=== PATIENT | female | born 1930 | race Caucasian/White ===

== ENCOUNTER 2020-05-22 18:10 | Inpatient (IN) | payer MEDICARE ==
[~2020-05-22] VITALS: Ht 157.5 cm; Wt 44.5 kg
--- NOTE | 2020-05-22 18:41 | NUR ---
The patient, SILVESTRE ALVARADO, 89 y/o, F admitted by ABEBA STROUD MD, was given written information regarding hospital policies, unit procedures and contact persons. Pt arrived via EMS with personal belongings. Pt is very lethargic upon assessment, answering questions with only a grumble. Pt appeared to not be in any pain and was cooperative with assessments being done.
[2020-05-22 20:00] VITALS: BP 130/75
[2020-05-22] MEDS ORDERED: TEMAZEPAM 15 MG CAPSULE PO PRN (20:15)
[2020-05-22] MEDS ORDERED: TEMAZEPAM 15 MG CAPSULE PO SCH (21:00)
[2020-05-22] MEDS ORDERED: traZODone 100 MG TABLET. PO SCH (21:00)
--- NOTE | 2020-05-22 22:00 | PDOC ---
Exam Note: Austin Note: Please also refer to the separate dictated note~for this date of service dictated separately.~Patient seen individually. Discussed the patient with Nursing staff reviewed the chart.~Reviewed interim history and current functioning. Reviewed vital signs,~Labs/ Radiology~and current medications noted below. Continue current treatment with the changes noted in the dictated addendum note Assessment: Vital Signs/I&O: Vital Signs Date Time Temp Pulse Resp B/P (MAP) Pulse Ox O2 Delivery O2 Flow Rate FiO2 05/22/20 20:00 97.9 105 16 130/75 (93) 95 Room Air Current Medications: I have reviewed the current psychotropics carefully including drug interactions. Risk benefit ratio favors no change other than as noted in my dictated progress note. FRANK NYE MD May 22, 2020 22:00
--- NOTE | 2020-05-22 22:03 | PDOC ---
Exam Note: Austin Note: Please also refer to the separate dictated note~for this date of service dictated separately.~Patient seen individually. Discussed the patient with Nursing staff reviewed the chart.~Reviewed interim history and current functioning. Reviewed vital signs,~Labs/ Radiology~and current medications noted below. Continue current treatment with the changes noted in the dictated addendum note Assessment: Vital Signs/I&O: Vital Signs Date Time Temp Pulse Resp B/P (MAP) Pulse Ox O2 Delivery O2 Flow Rate FiO2 05/22/20 20:00 97.9 105 16 130/75 (93) 95 Room Air Current Medications: I have reviewed the current psychotropics carefully including drug interactions. Risk benefit ratio favors no change other than as noted in my dictated progress note. 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
--- NOTE | 2020-05-22 23:59 | NUR ---
Patient continues to be drowsy. She is arousable to name. Confused, disorganized. HS medications held d/t drowsiness. Patient appears to be sleeping comfortably at present time. Will continue to monitor.
[2020-05-23] VITALS (7 sets, daily range): BP systolic 118–154; BP diastolic 53–95
[2020-05-23] MEDS: PANTOPRAZOLE 40 MG TABLET. PO SCH (08:01)
[2020-05-23] MEDS: METOPROLOL TART IMMED RELEASE 25 MG TABLET PO SCH (08:01)
[2020-05-23] MEDS: OLANZapine 7.5 MG TABLET PO SCH (08:01)
--- NOTE | 2020-05-23 10:30 | NUR ---
Pt very confused and resistive in am. Pt refused to speak and was hanging onto furniture when attemptin to get pt back to be. Has been impulsive. Pt did take meds crushed in applesauce.
--- NOTE | 2020-05-23 13:00 | NUR ---
Pt more coherent this afternoon. Pt eating better.
--- NOTE | 2020-05-23 16:30 | NUR ---
Dr Shipman here to see pt. Pt has an irregular HB per DR. EKG ordered and lab.
--- NOTE | 2020-05-23 17:00 | NUR ---
EKG and lab results called to Dr Shipman. Order for 500cc bolus of NS, place on telemetry and consult cardiology in am.
--- NOTE | 2020-05-23 17:36 | HP ---
ADMIT DATE: 05/22/2020 HISTORY OF PRESENT ILLNESS: The patient is an 89-year-old female patient who was admitted to [address] [place] [address] for a 48-hour hold before she gets [facility] for inpatient psychiatric stabilization. The patient is an 89-year-old female, who was seen at the Emergency Room [facility] on 05/18/2020. She was brought to the Emergency Room by EMS for unresponsiveness at home. Her daughter stated that she brought her mother to live with her 4 months ago when she was seen by neuropsychologist at and was diagnosed with dementia. She is normally active and alert. Daughter stated that for the last weekend, she was almost manic, did not sleep at all and basically destroyed her room; then the night before admission to [facility], she laid down on the floor by her bed and refused to get up. She spent the night there and on the morning of admission, she was basically unresponsive to her daughter. Per EMS, she was very frail appearing and has refused to eat or drink for more than 48 hours prior to arrival to the [facility]. Her unresponsiveness appears to be behavioral in nature. She squeezes her eyes shut whenever she is addressed. Her daughter confirmed that she does not wish to be resuscitated. PAST MEDICAL HISTORY: Significant for dementia, gastroesophageal reflux disease, osteoporosis and osteoarthritis. She has also sundowning and she was on trazodone, olanzapine and she was actually on amitriptyline as well as oxazepam 10 mg 4 times a day. ALLERGIES: She has no known drug allergies. FAMILY HISTORY: Unobtainable. SOCIAL HISTORY: She has been living with her daughter for the past 4 months. She apparently does not smoke, drink alcohol or use any recreational drugs. PAST SURGICAL HISTORY: Unobtainable. REVIEW OF SYSTEMS: As per history of present illness. PHYSICAL EXAMINATION: GENERAL: When I saw her this afternoon, she was sitting slightly propped up in bed, eating her dinner, in no apparent distress. She was frail, somewhat cachectic, but no jaundice or cyanosis. No lymphadenopathy, no thyromegaly. No jugular venous distention or limb edema. VITAL SIGNS: Her heart rate was 105, blood pressure was 130/75, temperature was 97.9, respiratory rate was 16, and oxygen saturation was 95% on room air. HEAD, EYES, EARS, NOSE AND THROAT: Showed normocephalic, atraumatic. NECK: Supple. HEART: Showed regular first heart sounds with fast heart rate. There is no gallop, rub or murmur. CHEST: Clear to auscultation. No crepitation or rhonchi. ABDOMEN: Distended, soft, nontender. NEUROLOGIC: She is demented, clearly very confused, but without any obvious lateralizing sign. All her cranial nerves are intact. EXTREMITIES: She moves extremities without difficulty. She ambulates with standby assist. LABORATORY DATA: Her lab work done at [facility] showed a white cell count of 6800, hemoglobin 12, hematocrit 35, platelet 226. Her serum sodium was 140, potassium 3.3, chloride 107, bicarbonate 23, glucose was 173, BUN 29, creatinine 0.7. Her CK was high at 451 and magnesium was 2.1. Her urinalysis was essentially unremarkable. She apparently had had a CT scan of the head, which showed no acute intracranial process, mild chronic small vessel ischemic disease and mild generalized cerebral volume loss. ASSESSMENT AND PLAN: The patient was admitted to [address] for 48-hour hold to check her COVID test again. Her COVID test was negative at [facility]. When I examined her, however, this afternoon, she was clearly in atrial fibrillation with rapid ventricular response and therefore we will arrange for her to be on telemetry and a 12-lead EKG as well as will check her lab work and decide on further management accordingly. We have already consulted Dr. Garcia to assist with her management. ABEBA STROUD MD DR: MARK/eva JOB#: [id number] / [id number]
--- NOTE | 2020-05-23 17:57 | EKG ---
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
[2020-05-23 18:13] LABS: HEMATOCRIT 37.2 % (36.0-47.0); HEMOGLOBIN 12.6 g/dL (12.0-15.5); RED BLOOD COUNT 4.13 x10^6/uL (3.50-5.40); RED CELL DISTRIBUTION WIDTH 14.4 % (11.5-14.5); WHITE BLOOD COUNT 8.7 x10^3/uL (4.0-11.0)
[2020-05-23 18:25] LABS: ALBUMIN 2.8 g/dL (3.4-5.0); ALBUMIN/GLOBULIN RATIO 0.8 (1.0-1.7); CALCIUM 8.7 mg/dL (8.5-10.1); CREATININE 0.7 mg/dL (0.6-1.0); POTASSIUM 3.8 mmol/L (3.5-5.1); TOTAL BILIRUBIN 0.5 mg/dL (0.2-1.0); TOTAL PROTEIN 6.2 g/dL (6.4-8.2)
--- NOTE | 2020-05-23 18:40 | NUR ---
Pt up to BR with assist. Pt u;se on monitor placement 140-150, Now running around 210. Call out to Dr Shipman.
[2020-05-23] MEDS ORDERED: IV NORMAL SALINE 500ML 500 ML IV ONE (18:45)
--- NOTE | 2020-05-23 19:06 | NUR ---
Pt SOA on excertion and slightly iaphoretic, Dr Shipman ordered CXR , Trop and transfer to ICU.
--- NOTE | 2020-05-23 19:59 | NUR ---
CXR per order. Report given to Bharati OAKLEY. To transfer pt to ICU 6.
--- NOTE | 2020-05-23 20:16 | NUR ---
Pt transferred from 48 hour unit to ICU at this time via w/c with staff member. Call light at bedside and bed alarm on pt. Will continue to monitor.
--- NOTE | 2020-05-23 20:18 | NUR ---
Called Dtr Sara and updated on pt condition.
--- NOTE | 2020-05-23 21:08 | RAD ---
EXAM: CHEST AP ONLY 05/23/2020 7:12 PM CLINICAL INDICATION:Shortness of breath, diaphoresis COMPARISON:None TECHNIQUE:AP upright view of the chest FINDINGS:The heart is mildly enlarged. The mediastinum is normal. The lungs are hyperexpanded with diffuse bilateral interstitial opacities. There are more dense retrocardiac and left basilar opacities and a small left pleural effusion. Calcified granulomas in the right upper lobe. No pneumothorax. No acute osseous abnormality. Large volume of stool noted in the upper abdomen. IMPRESSION: 1. Left retrocardiac and basilar opacities, which could be atelectasis or pneumonia, and small left pleural effusion. 2. Hyperexpanded lungs with interstitial opacities, which may be related to COPD. 3. Cardiomegaly. Electronically signed by: Karyn Hughes MD (05/23/2020 9:05 PM) [id number]
[2020-05-23] MEDS ORDERED: DIGOXIN IV 500 MCG/2 ML AMPUL. IV ONE ×2 (21:30→23:00)
[2020-05-23] MEDS: MIRTAZAPINE 7.5 MG TABLET. PO SCH (21:37)
--- NOTE | 2020-05-23 21:47 | PDOC ---
Exam Note: Austin Note: Please also refer to the separate dictated note~for this date of service dictated separately.~Patient seen individually. Discussed the patient with Nursing staff reviewed the chart.~Reviewed interim history and current functioning. Reviewed vital signs,~Labs/ Radiology~and current medications noted below. Continue current treatment with the changes noted in the dictated addendum note Assessment: Vital Signs/I&O: Vital Signs Date Time Temp Pulse Resp B/P (MAP) Pulse Ox O2 Delivery O2 Flow Rate FiO2 05/23/20 21:37 114 123/84 05/23/20 20:58 18 95 Room Air 05/23/20 20:16 99.3 I & O 05/22/20 05/22/20 05/23/20 15:00 23:00 07:00 Intake Total 300 ml 0 ml Balance 300 ml 0 ml Labs: Laboratory Tests Test 05/23/20 18:01 White Blood Count 8.7 x10^3/uL (4.0-11.0) Red Blood Count 4.13 x10^6/uL (3.50-5.40) Hemoglobin 12.6 g/dL (12.0-15.5) Hematocrit 37.2 % (36.0-47.0) Mean Corpuscular Volume 90 fL (79-100) Mean Corpuscular Hemoglobin 31 pg (25-35) Mean Corpuscular Hemoglobin Concent 34 g/dL (31-37) Red Cell Distribution Width 14.4 % (11.5-14.5) Platelet Count 267 x10^3/uL (140-400) Sodium Level 130 mmol/L (136-145) L Potassium Level 3.8 mmol/L (3.5-5.1) Chloride Level 97 mmol/L (98-107) L Carbon Dioxide Level 24 mmol/L (21-32) Anion Gap 9 (6-14) Blood Urea Nitrogen 14 mg/dL (7-20) Creatinine 0.7 mg/dL (0.6-1.0) Estimated GFR (Cockcroft-Gault) 79.0 BUN/Creatinine Ratio 20 (6-20) Glucose Level 140 mg/dL (70-99) H Calcium Level 8.7 mg/dL (8.5-10.1) Magnesium Level 2.2 mg/dL (1.8-2.4) Total Bilirubin 0.5 mg/dL (0.2-1.0) Aspartate Amino Transferase (AST) 22 U/L (15-37) Alanine Aminotransferase (ALT) 25 U/L (14-59) Alkaline Phosphatase 92 U/L (46-116) Troponin I Quantitative 0.034 ng/mL (0-0.055) Total Protein 6.2 g/dL (6.4-8.2) L Albumin 2.8 g/dL (3.4-5.0) L Albumin/Globulin Ratio 0.8 (1.0-1.7) L Current Medications: Meds: Current Medications Medications (Trade) Dose Ordered Sig/Barbara Route PRN Reason Start Time Stop Time Status Last Admin Dose Admin Metoprolol Tartrate (Lopressor) 25 mg DAILY PO 05/23/20 09:00 05/23/20 08:01 Olanzapine (ZyPREXA) 7.5 mg DAILY PO 05/23/20 09:00 05/23/20 08:01 Pantoprazole Sodium (Protonix) 40 mg DAILYAC PO 05/23/20 07:30 05/23/20 08:01 Mirtazapine (Remeron) 7.5 mg QHS PO 05/23/20 21:00 05/23/20 21:37 Sodium Chloride 500 ml @ 0 mls/hr 1X ONCE IV 05/23/20 18:45 05/23/20 18:59 DC 05/23/20 18:45 Digoxin (Lanoxin) 250 mcg 1X ONCE IV 05/23/20 21:30 05/23/20 21:32 DC 05/23/20 21:37 I have reviewed the current psychotropics carefully including drug interactions. Risk benefit ratio favors no change other than as noted in my dictated progress note. Diagnosis: Problems: (1) Impulse control disorder, unspecified (2) Anxiety disorder, unspecified (3) Dementia, vascular, with depression (4) Dementia, vascular, with delusions (5) Dementia in Alzheimer's disease with depression (6) Dementia in Alzheimer's disease with delusions (7) Major neurocognitive disorder (8) Dementia in Alzheimer's disease with early onset with behavioral disturbance FRANK NYE MD May 23, 2020 21:47
[2020-05-23] MEDS: LORazepam 0.5 MG TABLET PO PRN (22:06)
[2020-05-23] MEDS: traZODone 100 MG TABLET. PO PRN (22:06)
--- NOTE | 2020-05-23 22:55 | NUR ---
Pt's heart rate sustaining 160-180s after first dose of digoxin. [facility] cardio called at this time. Orders given and recieved. Will continue to monitor.
[2020-05-23] MEDS: dilTIAZem VIAL 125 MG in IV NORMAL SALINE 100ML 100 ML IV PRN (23:01)
[2020-05-24] VITALS (25 sets, daily range): BP systolic 84–141; BP diastolic 42–111
--- NOTE | 2020-05-24 03:40 | NUR ---
Pt's blood pressure not tolerating Cardizem with the higher dose (see vital signs); notified MD of change and orders given. Pt's heart rate still in the 130's prior to the increase of cardizem. Will continue to monitor.
[2020-05-24] MEDS ORDERED: IV NORMAL SALINE 500ML 500 ML IV ONE (04:00)
[2020-05-24 05:58] LABS: BASO % 0 % (0-3); EOS % 0 % (0-3); HEMATOCRIT 34.6 % (36.0-47.0); HEMOGLOBIN 11.5 g/dL (12.0-15.5); LYMPH # 0.8 x10^3/uL (1.0-4.8); LYMPH % 9 % (24-48); MEAN CORPUSCULAR HEMOGLOBIN 30 pg (25-35); MEAN CORPUSCULAR HGB CONC 33 g/dL (31-37); MEAN CORPUSCULAR VOLUME 90 fL (79-100); MONO % 11 % (0-9); NEUT # 6.9 x10^3uL (1.8-7.7); NEUT % 79 % (31-73); PLATELET COUNT 247 x10^3/uL (140-400); RED BLOOD COUNT 3.84 x10^6/uL (3.50-5.40); RED CELL DISTRIBUTION WIDTH 13.9 % (11.5-14.5); WHITE BLOOD COUNT 8.8 x10^3/uL (4.0-11.0)
[2020-05-24 06:09] LABS: ALBUMIN 2.7 g/dL (3.4-5.0); ALBUMIN/GLOBULIN RATIO 0.9 (1.0-1.7); CALCIUM 8.3 mg/dL (8.5-10.1); CREATININE 0.7 mg/dL (0.6-1.0); POTASSIUM 3.9 mmol/L (3.5-5.1); TOTAL BILIRUBIN 0.6 mg/dL (0.2-1.0); TOTAL PROTEIN 5.7 g/dL (6.4-8.2)
[2020-05-24] MEDS ORDERED: TRAZ-125 PO (06:27)
[2020-05-24] MEDS ORDERED: OMEP40CA45 PO (06:27)
[2020-05-24] MEDS ORDERED: METO25TA4 PO (06:27)
[2020-05-24] MEDS ORDERED: OLAN7.5T3 PO (06:27)
[2020-05-24] MEDS ORDERED: AMIT25TA PO (06:27)
[2020-05-24] MEDS ORDERED: OXAZ10CA3 PO (06:27)
[2020-05-24] MEDS ORDERED: BIMA2.5D OP (06:27)
[2020-05-24] MEDS: LORazepam 0.5 MG TABLET PO PRN ×3 (06:38→18:10)
--- NOTE | 2020-05-24 07:09 | NUR ---
Pt remains in the 130-160's on Cardizem @ 5 ml/hr. Pt's BP dropped to 84/52 call placed to [facility] cardiology, waiting on a phone call back. Will CTM.
--- NOTE | 2020-05-24 07:13 | NUR ---
Dr. Bright called back and orders obtained for 0.25 mg of digoxin. Will CTM.
[2020-05-24] MEDS ORDERED: DIGOXIN IV 500 MCG/2 ML AMPUL. ONE (07:14)
[2020-05-24] MEDS ORDERED: DIGOXIN IV 500 MCG/2 ML AMPUL. IV ONE ×2 (07:15→11:30)
[2020-05-24] MEDS: ACETAMINOPHEN 650 MG SUPP.RECT. PR PRN ×2 (08:00→18:11)
[2020-05-24] MEDS ORDERED: ACETAMINOPHEN 500 MG TABLET PO PRN (08:00)
[2020-05-24] MEDS: METOPROLOL TART IMMED RELEASE 25 MG TABLET PO SCH (08:04)
[2020-05-24] MEDS: PANTOPRAZOLE 40 MG TABLET. PO SCH (08:04)
[2020-05-24] MEDS: OLANZapine 7.5 MG TABLET PO SCH (08:08)
[2020-05-24] MEDS ORDERED: OLANZapine IM 10 MG VIAL. IM PRN (09:15)
[2020-05-24] MEDS ORDERED: VANCOMYCIN 1.25 GM in IV NORMAL SALINE 250ML 250 ML IV ONE (10:00)
[2020-05-24] MEDS: VANCOMYCIN PER PHARMACY MC PRN (10:29)
--- NOTE | 2020-05-24 10:46 | NUR ---
Pharmacy Vancomycin Dosing Note S:Consulted to monitor and dose vancomycin started 05/24/20. O:SILVESTRE ALVARADO is a 89 year old F with Pneumonia, . Height: 5 feet, 2 inches Weight: 44.5 kg [place] Body Weight: 50.10 Adjusted Body Weight: 47.86 Dosing Weight: Actual Other Antibiotics: ZOSYN 3.375GM IV Q6HR LABS: Last BUN: 13 Last Creatinine: 0.7 Creatinine Clearance: 27.32 Last WBC: 8.8 Vancomycin Dosing: Loading Dose: 1250 mg x1 Dosing Weight: Actual Target Trough: 15-20 A: Based on: Actual weight, renal function, and indication P: 1. Begin Vancomycin 750 mg IV q24h 2. Follow up Trough level on 05/26/20 at 0930 3. Pharmacy will continue to monitor, follow and adjust therapy as needed. KEMAL JIMENEZ, 05/24/20 1046
--- NOTE | 2020-05-24 13:29 | HP ---
ADMIT DATE: 05/24/2020 PSYCHIATRIC ADMISSION HISTORY/EVALUATION This late entry 05/22 covers elements not covered in my initial note. The patient was seen on telehealth rounds evening of 05/22. IDENTIFYING DATA: The patient is an 89-year-old female seen in room [facility] of [facility] for a psychiatric consult requested by Dr. Shipman on account of the patient's confusion and agitation. Reportedly, she was living at home with her daughter, was appearing more manic, not eating, combative. Daughter found her unresponsive at home. She was hospitalized for medical stabilization and for stabilization for her behavioral control dyscontrol, consequent to dementia. CHIEF COMPLAINT: "No." The patient seemed quite perplexed, when I met with her in the evening, confused, oriented to herself, not very verbally interactive. HISTORY OF PRESENT ILLNESS: The patient has a history of dementia, Alzheimer's vascular type. She resides at home with her daughter, getting more confused, slightly agitated with marked mood lability, combativeness, psychotic. She has had sleep and appetite changes, had failed outpatient psychiatric interventions resulting in this referral for inpatient stabilization. No clear history of bipolar disorder, but she has appeared manic recently. PAST PSYCHIATRIC HISTORY: As above. MEDICAL HISTORY: Positive for status post UTI, osteoarthritis. ALLERGIES: Negative. CODE STATUS: DNR. ACCU-CHEKS: None. DIET: Regular, thin liquids, meds crushed in applesauce. CT head 05/18 showed mild small vessel ischemic disease, mild cerebral volume loss. She was previously treated for UTI in January. FAMILY HISTORY: Noncontributory. SOCIAL HISTORY: Lives at home with her daughter. No alcohol or drug abuse history. MENTAL STATUS EXAMINATION: The patient was seen individually evening of 05/22. She is oriented to herself, not very verbally interactive. Insight, judgment, recent and remote memory, attention, concentration, fund of knowledge poor, consistent with her diagnoses. IMPRESSION: Major neurocognitive disorder; Alzheimer, vascular with delusion, depression, behavioral disturbance; anxiety disorder, unspecified; impulse control disorder, unspecified. Rest as above. PLAN: We will continue the patient on her current psychotropics, which include trazodone 100 mg at bedtime, Restoril 30 mg at bedtime, but may consider changing this to Remeron. Maintain Zyprexa 7.5 mg daily for now. We will observe baseline, then make further adjustments as clinically indicated. MAN Anjelica NYE MD DR: LIZZETTE/eva JOB#: [id number] / [id number]
[2020-05-24] MEDS: dilTIAZem VIAL 125 MG in IV NORMAL SALINE 100ML 100 ML IV PRN (13:31)
[2020-05-24] MEDS: PIPERACILLIN/TAZOBACTAM 3.375 GM in IV NORMAL SALINE 50ML 50 ML IV SCH ×2 (13:33→18:10)
[2020-05-24 14:12] LABS: BILIRUBIN,URINE NEG (NEG); CLARITY,URINE HAZY; COLOR,URINE STRAW; GLUCOSE,URINE 100 mg/dL (NEG)
[2020-05-24 14:13] LABS: BACTERIA,URINE 0 /HPF (0-FEW); NITRITE,URINE NEG (NEG); SQUAMOUS EPITHELIAL CELL,UR FEW /LPF; UROBILINOGEN,URINE 0.2 mg/dL (0.2 mg/dL); WBC,URINE OCC /HPF (0-4)
[2020-05-24] MEDS ORDERED: traZODone 50 MG TABLET. PO ONE (18:15)
--- NOTE | 2020-05-24 19:00 | PN ---
DATE: SUBJECTIVE: The patient was transferred to the ICU yesterday, as she was found to be in atrial fibrillation with rapid ventricular response that we treated with digoxin and also was started on diltiazem. Was given also some IV fluid. She continued to be extremely restless, agitated, requiring mittens to prevent her from pulling her IV line, and she was also catheterized and was found to be retaining urine and apparently that actually helped. She calmed down after that. She has received almost 1 mg of digoxin and she is now on a Cardizem drip at 15 mg per hour. She spiked her temperature. Chest x-ray showed that she has left retrocardiac and basilar opacities, which could be atelectasis or pneumonia and small left pleural effusion. She has hyperexpanded lungs with interstitial opacities, which may be related to COPD, has cardiomegaly. PHYSICAL EXAMINATION: GENERAL: When I examined her this afternoon, she was resting, almost flat in bed, in no apparent distress. She was somewhat pale. No jaundice, cyanosis, or thyromegaly. No jugular venous distention. No limb edema. VITAL SIGNS: Her heart rate was 100, blood pressure was 127/101, temperature was 100.9, respiratory rate 20, and oxygen saturation was 96%. HEAD, EYES, EARS, NOSE, AND THROAT: Showed normocephalic, atraumatic. NECK: Supple. HEART: Normal first and second heart sounds. No gallop, rub, or murmur. CHEST: Clear to auscultation. No crepitation or rhonchi. ABDOMEN: Distended, soft, nontender. NEUROLOGIC: She is demented, but without any obvious lateralizing sign. All her cranial nerves intact. She moves extremities without difficulty. She has an indwelling Valles catheter. Her intake and output is incompletely recorded. LABORATORY DATA: As of this morning, her white cell count was 8800, hemoglobin 11.5, hematocrit 35, MCV 90, and platelet count 247,000. Her chemistry showed serum sodium of 132, potassium 3.9, chloride 98, bicarbonate 26, anion gap of 8, BUN 13, creatinine 0.7. Estimated GFR was 79 mL per minute. Her glucose 108. Calcium was 8.3. Total bilirubin, AST, ALT, alkaline phosphatase were normal. Her beta-natriuretic peptide was 4047. Total protein 5.7, albumin 2.7. Her TSH was normal at 1.601. Her urinalysis was essentially unremarkable and her coronavirus by PCR was not detected. ASSESSMENT: 1. This is an 89-year-old female patient who was admitted to [address] [place] [address]-hour [facility] before she gets admitted to [facility] for inpatient psychiatric stabilization. She was found to be in atrial fibrillation with rapid ventricular response that required treatment with IV digoxin as well as Cardizem drip. Her heart rate was finally controlled after she received a total of 1 mg of digoxin and she is currently on Cardizem drip at 15 mg per hour. 2. She was found to have urinary retention, requiring indwelling Valles catheter. 3. Gastroesophageal reflux disease. 4. Hypertension. 5. Osteoporosis and osteoarthritis. 6. Profound dementia with sundowning. Apparently, she has not slept the whole night last night despite treatment with trazodone, olanzapine. PLAN: My plan is to continue with the Cardizem drip and we did start her on IV antibiotic in the form of Zosyn and vancomycin for healthcare-associated pneumonia. We will continue to monitor her lab work and consult Dr. Garcia to assist with her management. ABEBA STROUD MD DR: MARK/eva JOB#: [id number] / [id number]
[2020-05-24] MEDS: MIRTAZAPINE 7.5 MG TABLET. PO SCH (21:18)
--- NOTE | 2020-05-24 22:00 | PDOC ---
Exam Note: [place] Note: Please also refer to the separate dictated note~for this date of service dictated separately.~Patient seen individually. Discussed the patient with Nursing staff reviewed the chart.~Reviewed interim history and current functioning. Reviewed vital signs,~Labs/ Radiology~and current medications noted below. Continue current treatment with the changes noted in the dictated addendum note Assessment: Vital Signs/I&O: Vital Signs Date Time Temp Pulse Resp B/P (MAP) Pulse Ox O2 Delivery O2 Flow Rate FiO2 05/24/20 21:35 72 23 91/48 (62) 96 Room Air 05/24/20 19:30 97.7 I & O 05/23/20 05/23/20 05/24/20 15:00 23:00 07:00 Intake Total 440 ml 1060 ml 300 ml Balance 440 ml 1060 ml 300 ml Labs: Laboratory Tests Test 05/24/20 05:45 05/24/20 12:10 White Blood Count 8.8 x10^3/uL (4.0-11.0) Red Blood Count 3.84 x10^6/uL (3.50-5.40) Hemoglobin 11.5 g/dL (12.0-15.5) L Hematocrit 34.6 % (36.0-47.0) L Mean Corpuscular Volume 90 fL (79-100) Mean Corpuscular Hemoglobin 30 pg (25-35) Mean Corpuscular Hemoglobin Concent 33 g/dL (31-37) Red Cell Distribution Width 13.9 % (11.5-14.5) Platelet Count 247 x10^3/uL (140-400) Neutrophils (%) (Auto) 79 % (31-73) H Lymphocytes (%) (Auto) 9 % (24-48) L Monocytes (%) (Auto) 11 % (0-9) H Eosinophils (%) (Auto) 0 % (0-3) Basophils (%) (Auto) 0 % (0-3) Neutrophils # (Auto) 6.9 x10^3uL (1.8-7.7) Lymphocytes # (Auto) 0.8 x10^3/uL (1.0-4.8) L Monocytes # (Auto) 1.0 x10^3/uL (0.0-1.1) Eosinophils # (Auto) 0.0 x10^3/uL (0.0-0.7) Basophils # (Auto) 0.0 x10^3/uL (0.0-0.2) Sodium Level 132 mmol/L (136-145) L Potassium Level 3.9 mmol/L (3.5-5.1) Chloride Level 98 mmol/L (98-107) Carbon Dioxide Level 26 mmol/L (21-32) Anion Gap 8 (6-14) Blood Urea Nitrogen 13 mg/dL (7-20) Creatinine 0.7 mg/dL (0.6-1.0) Estimated GFR (Cockcroft-Gault) 79.0 BUN/Creatinine Ratio 19 (6-20) Glucose Level 108 mg/dL (70-99) H Calcium Level 8.3 mg/dL (8.5-10.1) L Total Bilirubin 0.6 mg/dL (0.2-1.0) Aspartate Amino Transferase (AST) 18 U/L (15-37) Alanine Aminotransferase (ALT) 22 U/L (14-59) Alkaline Phosphatase 87 U/L (46-116) [id number]-[id number]-Type Natriuretic Peptide 4047 pg/mL (0-449) H Total Protein 5.7 g/dL (6.4-8.2) L Albumin 2.7 g/dL (3.4-5.0) L Albumin/Globulin Ratio 0.9 (1.0-1.7) L Urine Collection Type U cath Urine Color Straw Urine Clarity Hazy Urine pH 7.0 Urine Specific [place] 1.020 Urine Protein Neg (NEG-TRACE) Urine Glucose (UA) 100 mg/dL (NEG) Urine Ketones (Stick) Neg mg/dL (NEG) Urine Blood Trace (NEG) Urine Nitrite Neg (NEG) Urine Bilirubin Neg (NEG) Urine Urobilinogen Dipstick 0.2 mg/dL (0.2 mg/dL) Urine Leukocyte Esterase Neg (NEG) Urine RBC 3-5 /HPF (0-2) Urine WBC Occ /HPF (0-4) Urine Squamous Epithelial Cells Few /LPF Urine Bacteria 0 /HPF (0-FEW) Current Medications: Meds: Current Medications Medications (Trade) Dose Ordered Sig/Barbara Route PRN Reason Start Time Stop Time Status Last Admin Dose Admin Digoxin (Lanoxin) 250 mcg 1X ONCE IV 05/23/20 23:00 05/23/20 23:01 DC 9/26/20 22:57 Diltiazem HCl 125 mg/Sodium Chloride 125 ml @ 5 mls/hr CONT PRN IV SEE I/O RECORD 05/23/20 23:00 05/24/20 13:31 Sodium Chloride 500 ml @ 500 mls/hr 1X ONCE IV 05/24/20 04:00 05/24/20 05:00 DC 05/24/20 03:42 Digoxin (Lanoxin) 250 mcg 1X ONCE IV 05/24/20 07:15 05/24/20 07:19 DC 05/24/20 07:18 Acetaminophen (Tylenol Supp) 650 mg PRN Q6HRS PRN [place] MILD PAIN / TEMP > 100.3'F 05/24/20 08:15 05/24/20 18:11 Olanzapine (ZyPREXA IM) 2.5 mg PRN Q4HRS PRN IM ANXIETY / AGITATION 05/24/20 09:15 05/24/20 14:55 DC 05/24/20 09:38 Piperacillin Sod/ Tazobactam Sod 3.375 gm/Sodium Chloride 50 ml @ 100 mls/hr Q6HRS IV 05/24/20 12:00 05/24/20 18:10 Vancomycin HCl (Vanco Per Pharmacy) 1 each PRN DAILY PRN MC SEE COMMENTS 05/24/20 09:15 05/24/20 10:29 Vancomycin HCl 1.25 gm/Sodium Chloride 250 ml @ 166.667 mls/hr 1X ONCE IV 05/24/20 10:00 05/24/20 11:29 DC 05/24/20 10:30 Digoxin (Lanoxin) 250 mcg 1X ONCE IV 05/24/20 11:30 05/24/20 11:32 DC 05/24/20 12:18 Olanzapine (ZyPREXA ZYDIS) 2.5 mg PRN Q2HRS PRN PO PSYCHOSIS 05/24/20 15:00 05/24/20 18:10 Trazodone HCl (Desyrel) 50 mg 1X ONCE PO 05/24/20 18:15 05/24/20 18:16 DC 05/24/20 18:10 I have reviewed the current psychotropics carefully including drug interactions. Risk benefit ratio favors no change other than as noted in my dictated progress note. 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
[2020-05-24] MEDS: traZODone 100 MG TABLET. PO PRN (22:09)
--- NOTE | 2020-05-24 23:10 | PDOC ---
Exam Note: [place] Note: This note is a late entry for 05/23/2020 covers elements not covered in my initial note. Subjective: The patient was reviewed on telehealth rounds due to COVID-19 restrictions on the unit in the evening of 05/23/2020 with Letty OAKLEY. Discussed with nursing staff, reviewed the chart. The patient has been resis tive to cares, not very verbally interactive, somewhat mute the night before but during the day on 05/23/2020 she was a little more interactive at times, earlier in the day seemed more coherent as well but by the time I met her on telehealth rounds in the evening she was unaware of where she was or the year or who the President was. Earlier in the day I also had a call from Letty OAKLEY indicating that the patient had been on Serax at home and this was changed to Restoril 30 mg h.s. Given the question of benzodiazepine withdrawal because I wanted to take her off the Restoril, we did start her on Ativan 0.25 mg q.2h. p.r.n. anxiety/benzodiazepine withdrawal symptoms, maximum 1.5 mg in 24 hours. We will also check her CT head and at the time of this dictation CT head had shown vascular changes consistent with her vascular dementia. We will also change the trazodone 100 mg h.s. scheduled to 100 mg h.s. p.r.n. and start her on Remeron 7.5 mg h.s. for insomnia in place of the Restoril. Review of Systems: No CV, , pulmonary, eye, ENT system symptoms on review. Reliability poor. Mental Status Exam: Oriented to herself and situation. Insight and judgment, recent and remote memory, attention and concentration, fund of knowledge is poor consistent with her diagnoses. Laboratory Data: Reviewed. Impression: Major neurocognitive disorder Alzheimer, vascular with delusion, depression, behavioral disturbance. Anxiety disorder unspecified. Impulse control disorder unspecified. Rest unchanged. Plan: Change the Restoril 30 mg h.s. to Remeron 7.5 mg h.s. Change trazodone 100 mg h.s. scheduled to 100 mg h.s. p.r.n. insomnia. She remains on Zyprexa 7.5 mg daily, may start low dose Zoloft as an SSRI antidepressant and anti- anxiety agent and given the vascular nature of dementia, there probably be little benefit from cholinesterase inhibitors and Namenda for now we will avoid this. Assessment: Vital Signs/I&O: Vital Signs Date Time Temp Pulse Resp B/P (MAP) Pulse Ox O2 Delivery O2 Flow Rate FiO2 05/24/20 22:17 67 22 96/58 (71) 96 Room Air 05/24/20 19:30 97.7 I & O 05/23/20 05/23/20 05/24/20 14:59 22:59 06:59 Intake Total 440 ml 1060 ml 300 ml Balance 440 ml 1060 ml 300 ml Labs: Laboratory Tests Test 05/24/20 05:45 05/24/20 12:10 White Blood Count 8.8 x10^3/uL (4.0-11.0) Red Blood Count 3.84 x10^6/uL (3.50-5.40) Hemoglobin 11.5 g/dL (12.0-15.5) L Hematocrit 34.6 % (36.0-47.0) L Mean Corpuscular Volume 90 fL (79-100) Mean Corpuscular Hemoglobin 30 pg (25-35) Mean Corpuscular Hemoglobin Concent 33 g/dL (31-37) Red Cell Distribution Width 13.9 % (11.5-14.5) Platelet Count 247 x10^3/uL (140-400) Neutrophils (%) (Auto) 79 % (31-73) H Lymphocytes (%) (Auto) 9 % (24-48) L Monocytes (%) (Auto) 11 % (0-9) H Eosinophils (%) (Auto) 0 % (0-3) Basophils (%) (Auto) 0 % (0-3) Neutrophils # (Auto) 6.9 x10^3uL (1.8-7.7) Lymphocytes # (Auto) 0.8 x10^3/uL (1.0-4.8) L Monocytes # (Auto) 1.0 x10^3/uL (0.0-1.1) Eosinophils # (Auto) 0.0 x10^3/uL (0.0-0.7) Basophils # (Auto) 0.0 x10^3/uL (0.0-0.2) Sodium Level 132 mmol/L (136-145) L Potassium Level 3.9 mmol/L (3.5-5.1) Chloride Level 98 mmol/L (98-107) Carbon Dioxide Level 26 mmol/L (21-32) Anion Gap 8 (6-14) Blood Urea Nitrogen 13 mg/dL (7-20) Creatinine 0.7 mg/dL (0.6-1.0) Estimated GFR (Cockcroft-Gault) 79.0 BUN/Creatinine Ratio 19 (6-20) Glucose Level 108 mg/dL (70-99) H Calcium Level 8.3 mg/dL (8.5-10.1) L Total Bilirubin 0.6 mg/dL (0.2-1.0) Aspartate Amino Transferase (AST) 18 U/L (15-37) Alanine Aminotransferase (ALT) 22 U/L (14-59) Alkaline Phosphatase 87 U/L (46-116) WG-Ajp-V-Type Natriuretic Peptide 4047 pg/mL (0-449) H Total Protein 5.7 g/dL (6.4-8.2) L Albumin 2.7 g/dL (3.4-5.0) L Albumin/Globulin Ratio 0.9 (1.0-1.7) L Urine Collection Type U cath Urine Color Straw Urine Clarity Hazy Urine pH 7.0 Urine Specific [place] 1.020 Urine Protein Neg (NEG-TRACE) Urine Glucose (UA) 100 mg/dL (NEG) Urine Ketones (Stick) Neg mg/dL (NEG) Urine Blood Trace (NEG) Urine Nitrite Neg (NEG) Urine Bilirubin Neg (NEG) Urine Urobilinogen Dipstick 0.2 mg/dL (0.2 mg/dL) Urine Leukocyte Esterase Neg (NEG) Urine RBC 3-5 /HPF (0-2) Urine WBC Occ /HPF (0-4) Urine Squamous Epithelial Cells Few /LPF Urine Bacteria 0 /HPF (0-FEW) Current Medications: Meds: Current Medications Medications (Trade) Dose Ordered Sig/Barbara Route PRN Reason Start Time Stop Time Status Last Admin Dose Admin Sodium Chloride 500 ml @ 500 mls/hr 1X ONCE IV 05/24/20 04:00 05/24/20 05:00 DC 05/24/20 03:42 Digoxin (Lanoxin) 250 mcg 1X ONCE IV 05/24/20 07:15 05/24/20 07:19 DC 9/27/20 07:18 Acetaminophen (Tylenol Supp) 650 mg PRN Q6HRS PRN [place] MILD PAIN / TEMP > 100.3'F 05/24/20 08:15 05/24/20 18:11 Olanzapine (ZyPREXA IM) 2.5 mg PRN Q4HRS PRN IM ANXIETY / AGITATION 05/24/20 09:15 05/24/20 14:55 DC 05/24/20 09:38 Piperacillin Sod/ Tazobactam Sod 3.375 gm/Sodium Chloride 50 ml @ 100 mls/hr Q6HRS IV 05/24/20 12:00 05/24/20 18:10 Vancomycin HCl (Vanco Per Pharmacy) 1 each PRN DAILY PRN MC SEE COMMENTS 05/24/20 09:15 05/24/20 10:29 Vancomycin HCl 1.25 gm/Sodium Chloride 250 ml @ 166.667 mls/hr 1X ONCE IV 05/24/20 10:00 05/24/20 11:29 DC 05/24/20 10:30 Digoxin (Lanoxin) 250 mcg 1X ONCE IV 05/24/20 11:30 05/24/20 11:32 DC 05/24/20 12:18 Olanzapine (ZyPREXA ZYDIS) 2.5 mg PRN Q2HRS PRN PO PSYCHOSIS 05/24/20 15:00 05/24/20 22:09 Trazodone HCl (Desyrel) 50 mg 1X ONCE PO 05/24/20 18:15 05/24/20 18:16 DC 05/24/20 18:10 I have reviewed the current psychotropics carefully including drug interactions. Risk benefit ratio favors no change other than as noted in my dictated progress note. 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
--- NOTE | 2020-05-24 23:12 | PDOC ---
Exam Note: [place] Note: This note covers elements not covered in my initial note. Subjective: The patient was reviewed on telehealth rounds due to COVID-19 restrictions on the unit in the evening of 05/24/2020 with Maryan OAKLEY. Discussed with nursing staff, reviewed the chart. I had been called by nursing staff earlier in the day. The patient was extremely labile in her mood, intermittently agitated, paranoid, psychotic. She had been transferred from Skilled Unit to ICU due to atrial fibrillation with RVR. Nursing staff had to place mittens on her hand since she was pulling out IV lines, etc. And we added trazodone 50 mg, may repeat x1 in the afternoon to help with her agitation and added Zyprexa p.r.n. Added another trazodone at night p.r.n. 50 mg, december repeat x1. Review of Systems: No CV, , pulmonary, eye, ENT system symptoms on review. Ambulation impaired. Mental Status Exam: Oriented to herself. Insight and judgment, recent and remote memory, attention and concentration, fund of knowledge is poor consistent with her diagnoses. Laboratory Data: Reviewed. Impression: Major neurocognitive disorder Alzheimer, vascular with delusion, depression, behavioral disturbance. Anxiety disorder unspecified. Impulse control disorder unspecified. Rest unchanged. Plan: In addition to changes in above, we will entertain other changes in her psychotropics depending on how she does. Continue rest unchanged. Assessment: Vital Signs/I&O: Vital Signs Date Time Temp Pulse Resp B/P (MAP) Pulse Ox O2 Delivery O2 Flow Rate FiO2 05/24/20 22:17 67 22 96/58 (71) 96 Room Air 05/24/20 19:30 97.7 I & O 05/23/20 05/23/20 05/24/20 15:00 23:00 07:00 Intake Total 440 ml 1060 ml 300 ml Balance 440 ml 1060 ml 300 ml Labs: Laboratory Tests Test 05/24/20 05:45 05/24/20 12:10 White Blood Count 8.8 x10^3/uL (4.0-11.0) Red Blood Count 3.84 x10^6/uL (3.50-5.40) Hemoglobin 11.5 g/dL (12.0-15.5) L Hematocrit 34.6 % (36.0-47.0) L Mean Corpuscular Volume 90 fL (79-100) Mean Corpuscular Hemoglobin 30 pg (25-35) Mean Corpuscular Hemoglobin Concent 33 g/dL (31-37) Red Cell Distribution Width 13.9 % (11.5-14.5) Platelet Count 247 x10^3/uL (140-400) Neutrophils (%) (Auto) 79 % (31-73) H Lymphocytes (%) (Auto) 9 % (24-48) L Monocytes (%) (Auto) 11 % (0-9) H Eosinophils (%) (Auto) 0 % (0-3) Basophils (%) (Auto) 0 % (0-3) Neutrophils # (Auto) 6.9 x10^3uL (1.8-7.7) Lymphocytes # (Auto) 0.8 x10^3/uL (1.0-4.8) L Monocytes # (Auto) 1.0 x10^3/uL (0.0-1.1) Eosinophils # (Auto) 0.0 x10^3/uL (0.0-0.7) Basophils # (Auto) 0.0 x10^3/uL (0.0-0.2) Sodium Level 132 mmol/L (136-145) L Potassium Level 3.9 mmol/L (3.5-5.1) Chloride Level 98 mmol/L (98-107) Carbon Dioxide Level 26 mmol/L (21-32) Anion Gap 8 (6-14) Blood Urea Nitrogen 13 mg/dL (7-20) Creatinine 0.7 mg/dL (0.6-1.0) Estimated GFR (Cockcroft-Gault) 79.0 BUN/Creatinine Ratio 19 (6-20) Glucose Level 108 mg/dL (70-99) H Calcium Level 8.3 mg/dL (8.5-10.1) L Total Bilirubin 0.6 mg/dL (0.2-1.0) Aspartate Amino Transferase (AST) 18 U/L (15-37) Alanine Aminotransferase (ALT) 22 U/L (14-59) Alkaline Phosphatase 87 U/L (46-116) QR-Zmy-M-Type Natriuretic Peptide 4047 pg/mL (0-449) H Total Protein 5.7 g/dL (6.4-8.2) L Albumin 2.7 g/dL (3.4-5.0) L Albumin/Globulin Ratio 0.9 (1.0-1.7) L Urine Collection Type U cath Urine Color Straw Urine Clarity Hazy Urine pH 7.0 Urine Specific [place] 1.020 Urine Protein Neg (NEG-TRACE) Urine Glucose (UA) 100 mg/dL (NEG) Urine Ketones (Stick) Neg mg/dL (NEG) Urine Blood Trace (NEG) Urine Nitrite Neg (NEG) Urine Bilirubin Neg (NEG) Urine Urobilinogen Dipstick 0.2 mg/dL (0.2 mg/dL) Urine Leukocyte Esterase Neg (NEG) Urine RBC 3-5 /HPF (0-2) Urine WBC Occ /HPF (0-4) Urine Squamous Epithelial Cells Few /LPF Urine Bacteria 0 /HPF (0-FEW) Current Medications: Meds: Current Medications Medications (Trade) Dose Ordered Sig/Barbara Route PRN Reason Start Time Stop Time Status Last Admin Dose Admin Sodium Chloride 500 ml @ 500 mls/hr 1X ONCE IV 05/24/20 04:00 05/24/20 05:00 DC 05/24/20 03:42 Digoxin (Lanoxin) 250 mcg 1X ONCE IV 05/24/20 07:15 05/24/20 07:19 DC 05/24/20 07:18 Acetaminophen (Tylenol Supp) 650 mg PRN Q6HRS PRN [place] MILD PAIN / TEMP > 100.3'F 05/24/20 08:15 05/24/20 18:11 Olanzapine (ZyPREXA IM) 2.5 mg PRN Q4HRS PRN IM ANXIETY / AGITATION 05/24/20 09:15 05/24/20 14:55 DC 05/24/20 09:38 Piperacillin Sod/ Tazobactam Sod 3.375 gm/Sodium Chloride 50 ml @ 100 mls/hr Q6HRS IV 05/24/20 12:00 05/24/20 18:10 Vancomycin HCl (Vanco Per Pharmacy) 1 each PRN DAILY PRN MC SEE COMMENTS 05/24/20 09:15 05/24/20 10:29 Vancomycin HCl 1.25 gm/Sodium Chloride 250 ml @ 166.667 mls/hr 1X ONCE IV 05/24/20 10:00 05/24/20 11:29 DC 05/24/20 10:30 Digoxin (Lanoxin) 250 mcg 1X ONCE IV 05/24/20 11:30 05/24/20 11:32 DC 05/24/20 12:18 Olanzapine (ZyPREXA ZYDIS) 2.5 mg PRN Q2HRS PRN PO PSYCHOSIS 05/24/20 15:00 05/24/20 22:09 Trazodone HCl (Desyrel) 50 mg 1X ONCE PO 05/24/20 18:15 05/24/20 18:16 DC 05/24/20 18:10 I have reviewed the current psychotropics carefully including drug interactions. Risk benefit ratio favors no change other than as noted in my dictated progress note. 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
[2020-05-25] VITALS (13 sets, daily range): BP systolic 81–137; BP diastolic 42–98
[2020-05-25] MEDS: PIPERACILLIN/TAZOBACTAM 3.375 GM in IV NORMAL SALINE 50ML 50 ML IV SCH ×5 (01:25→23:37)
[2020-05-25] MEDS: LORazepam 0.5 MG TABLET PO PRN ×3 (04:18→20:19)
[2020-05-25 07:05] LABS: ALBUMIN 2.7 g/dL (3.4-5.0); ALBUMIN/GLOBULIN RATIO 0.9 (1.0-1.7); CALCIUM 8.2 mg/dL (8.5-10.1); CREATININE 0.9 mg/dL (0.6-1.0); GFR 59.1; POTASSIUM 3.5 mmol/L (3.5-5.1); TOTAL BILIRUBIN 0.9 mg/dL (0.2-1.0); TOTAL PROTEIN 5.8 g/dL (6.4-8.2)
[2020-05-25 07:22] LABS: HEMATOCRIT 32.4 % (36.0-47.0); RED BLOOD COUNT 3.59 x10^6/uL (3.50-5.40); WHITE BLOOD COUNT 10.3 x10^3/uL (4.0-11.0)
[2020-05-25] MEDS: OLANZapine 7.5 MG TABLET PO SCH (08:08)
[2020-05-25] MEDS: PANTOPRAZOLE 40 MG TABLET. PO SCH (08:08)
[2020-05-25] MEDS: METOPROLOL TART IMMED RELEASE 25 MG TABLET PO SCH (08:09)
--- NOTE | 2020-05-25 08:27 | PDOC2 ---
CARDIAC CONSULT DATE OF CONSULT DOS: DATE: 05/25/20 TIME: 08:18 REASON FOR CONSULT Reason for Consult AFIB/tachy REFERRING PHYSICIAN Referring Physician Dr. Shipman SOURCE Source: Chart review HPI History of Present Illness This is an 89 yo female who was admitted to unit for 48 hr hold prior to being [facility] for inpatient psychiatric stabilization. She was seen in ED at [facility] for unresponsiveness 05/18/20. Recently diagnosed with dementia at . Daughter brought he home to live with her about 4 months ago. The weekend prior to arrival, did not sleep at all and basically tore up her room. She laid down of the floor by her bed and refused to get up, eat, or drink. Was noted to be tachycardic upon arrival, which prompted this consult. PAST MEDICAL HISTORY Cardiovascular: HTN CENTRAL NERVOUS SYSTEM: Dementia GI: GERD Musculoskeletal: Osteoarthritis PAST SURGICAL HISTORY Past Surgical History: No pertinent history FAMILY HISTORY Family History: Other (noncontributory to age ) SOCIAL HISTORY Smoke: No ALCOHOL: none Drugs: None Lives: with Family CURRENT MEDICATIONS Current Medications Current Medications Metoprolol Tartrate (Lopressor) 25 mg DAILY PO Last administered on 05/25/20at 08:09; Start 05/23/20 at 09:00 Olanzapine (ZyPREXA) 7.5 mg DAILY PO Last administered on 05/25/20at 08:08; Start 05/23/20 at 09:00 Temazepam (Restoril) 30 mg PRN QHS PRN PO INSOMNIA; Start 05/22/20 at 20:15; Stop 05/22/20 at 20:25; Status DC Trazodone HCl (Desyrel) 100 mg QHS PO ; Start 05/22/20 at 21:00; Stop 05/23/20 at 18:03; Status DC Temazepam (Restoril) 30 mg QHS PO ; Start 05/22/20 at 21:00; Stop 05/23/20 at 20:09; Status DC Pantoprazole Sodium (Protonix) 40 mg DAILYAC PO Last administered on 05/25/20at 08:08; Start 05/23/20 at 07:30 Trazodone HCl (Desyrel) 100 mg PRN QHS PRN PO INSOMNIA, MAY REPEAT X1 Last administered on 05/24/20at 22:09; Start 05/23/20 at 18:00 Mirtazapine (Remeron) 7.5 mg QHS PO Last administered on 05/24/20at 21:18; Start 05/23/20 at 21:00 Lorazepam (Ativan) 0.25 mg PRN Q2HRS PRN PO WITHDRAWAL IRRITABILITY Last administered on 05/25/20at 04:18; Start 05/23/20 at 18:30 Sodium Chloride 500 ml @ 0 mls/hr 1X ONCE IV Last administered on 05/23/20at 18:45; Start 05/23/20 at 18:45; Stop 05/23/20 at 18:59; Status DC Digoxin (Lanoxin) 250 mcg 1X ONCE IV Last administered on 05/23/20at 21:37; Start 05/23/20 at 21:30; Stop 05/23/20 at 21:32; Status DC Digoxin (Lanoxin) 250 mcg 1X ONCE IV Last administered on 05/23/20at 22:57; Start 05/23/20 at 23:00; Stop 05/23/20 at 23:01; Status DC Diltiazem HCl 125 mg/Sodium Chloride 125 ml @ 5 mls/hr CONT PRN IV SEE I/O RECORD Last administered on 05/24/20at 13:31; Start 05/23/20 at 23:00 Diltiazem HCl (Cardizem) 125 mg STK-MED ONCE IV ; Start 05/23/20 at 22:54; Stop 05/23/20 at 22:55; Status DC Sodium Chloride 500 ml @ 500 mls/hr 1X ONCE IV Last administered on 05/24/20at 03:42; Start 05/24/20 at 04:00; Stop 05/24/20 at 05:00; Status DC Digoxin (Lanoxin) 250 mcg 1X ONCE IV Last administered on 05/24/20at 07:18; Start 05/24/20 at 07:15; Stop 05/24/20 at 07:19; Status DC Digoxin (Lanoxin) 500 mcg STK-MED ONCE .ROUTE ; Start 05/24/20 at 07:14; Stop 05/24/20 at 07:14; Status DC Acetaminophen (Tylenol) 1,000 mg PRN Q8HRS PRN PO MILD PAIN / TEMP > 100.3'F; Start 05/24/20 at 08:00; Status Cancel Acetaminophen (Tylenol Supp) 650 mg PRN Q6HRS PRN [place] MILD PAIN / TEMP > 100.3'F Last administered on 05/24/20at 18:11; Start 05/24/20 at 08:15 Olanzapine (ZyPREXA IM) 2.5 mg PRN Q4HRS PRN IM ANXIETY / AGITATION Last administered on 05/24/20at 09:38; Start 05/24/20 at 09:15; Stop 05/24/20 at 14:55; Status DC Piperacillin Sod/ Tazobactam Sod 3.375 gm/Sodium Chloride 50 ml @ 100 mls/hr Q6HRS IV Last administered on 05/25/20at 06:14; Start 05/24/20 at 12:00 Vancomycin HCl (Vanco Per Pharmacy) 1 each PRN DAILY PRN MC SEE COMMENTS Last administered on 05/24/20at 10:29; Start 05/24/20 at 09:15 Vancomycin HCl 1.25 gm/Sodium Chloride 250 ml @ 166.667 mls/hr 1X ONCE IV Last administered on 05/24/20at 10:30; Start 05/24/20 at 10:00; Stop 05/24/20 at 11:29; Status DC Vancomycin HCl 750 mg/Sodium Chloride 250 ml @ 250 mls/hr Q24H IV ; Start 05/25/20 at 10:00 Vancomycin HCl (Vancomycin Trough Level) 1 each 1X ONCE MC ; Start 05/26/20 at 09:30; Stop 05/26/20 at 09:31 Digoxin (Lanoxin) 250 mcg 1X ONCE IV Last administered on 05/24/20at 12:18; Start 05/24/20 at 11:30; Stop 05/24/20 at 11:32; Status DC Olanzapine (ZyPREXA ZYDIS) 2.5 mg PRN Q2HRS PRN PO PSYCHOSIS Last administered on 05/25/20at 04:18; Start 05/24/20 at 15:00 Trazodone HCl (Desyrel) 50 mg 1X ONCE PO Last administered on 05/24/20at 18:10; Start 05/24/20 at 18:15; Stop 05/24/20 at 18:16; Status DC Lactobacillus Rhamnosus (Culturelle) 1 cap BID PO ; Start 05/25/20 at 09:00 Active Scripts Active Reported Lumigan (Bimatoprost) 2.5 Ml Drops 2.5 Ml OP QHS Omeprazole 40 Mg Capsule.dr 40 Mg PO DAILY Oxazepam 10 Mg Capsule 10 Mg PO PRN QID PRN Amitriptyline Hcl 25 Mg Tablet 25 Mg PO QHS Trazodone Hcl 100 Mg Tablet 100 Mg PO QHS Zyprexa (Olanzapine) 7.5 Mg Tablet 7.5 Mg PO DAILY Metoprolol Tartrate 25 Mg Tablet 25 Mg PO DAILY PRN ALLERGIES Allergies: Coded Allergies: No Known Drug Allergies (Unverified , 05/22/20) ROS Review of Systems unobtainable. PHYSICAL EXAM General: Alert (to self only, does not open eyes for interaction), No acute distress HEENT: Atraumatic, Mucous membr. moist/pink Lungs: Other (diminished bases) Heart: Other (IRRR) Abdomen: Soft Extremities: No edema, Other (mittens on) Neuro: Sensation intact Psych/Mental Status: Other (does not open eyes for interaction) MUSCULOSKELETAL: Osteoarthritic changes both hands VITALS Vital Signs Vital Signs Date Time Temp Pulse Resp B/P (MAP) Pulse Ox O2 Delivery O2 Flow Rate FiO2 05/25/20 08:09 80 103/64 05/25/20 07:18 95.7 13 95 05/25/20 06:05 Room Air LABS LABS Laboratory Tests Test 05/23/20 18:01 05/24/20 05:45 05/24/20 12:10 05/25/20 06:10 White Blood Count 8.7 x10^3/uL (4.0-11.0) 8.8 x10^3/uL (4.0-11.0) 10.3 x10^3/uL (4.0-11.0) Red Blood Count 4.13 x10^6/uL (3.50-5.40) 3.84 x10^6/uL (3.50-5.40) 3.59 x10^6/uL (3.50-5.40) Hemoglobin 12.6 g/dL (12.0-15.5) 11.5 g/dL (12.0-15.5) 11.0 g/dL (12.0-15.5) Hematocrit 37.2 % (36.0-47.0) 34.6 % (36.0-47.0) 32.4 % (36.0-47.0) Mean Corpuscular Volume 90 fL (79-100) 90 fL (79-100) 90 fL (79-100) Mean Corpuscular Hemoglobin 31 pg (25-35) 30 pg (25-35) 31 pg (25-35) Mean Corpuscular Hemoglobin Concent 34 g/dL (31-37) 33 g/dL (31-37) 34 g/dL (31-37) Red Cell Distribution Width 14.4 % (11.5-14.5) 13.9 % (11.5-14.5) 14.0 % (11.5-14.5) Platelet Count 267 x10^3/uL (140-400) 247 x10^3/uL (140-400) 236 x10^3/uL (140-400) Sodium Level 130 mmol/L (136-145) 132 mmol/L (136-145) 136 mmol/L (136-145) Potassium Level 3.8 mmol/L (3.5-5.1) 3.9 mmol/L (3.5-5.1) 3.5 mmol/L (3.5-5.1) Chloride Level 97 mmol/L (98-107) 98 mmol/L (98-107) 101 mmol/L (98-107) Carbon Dioxide Level 24 mmol/L (21-32) 26 mmol/L (21-32) 25 mmol/L (21-32) Anion Gap 9 (6-14) 8 (6-14) 10 (6-14) Blood Urea Nitrogen 14 mg/dL (7-20) 13 mg/dL (7-20) 13 mg/dL (7-20) Creatinine 0.7 mg/dL (0.6-1.0) 0.7 mg/dL (0.6-1.0) 0.9 mg/dL (0.6-1.0) Estimated GFR (Cockcroft-Gault) 79.0 79.0 59.1 BUN/Creatinine Ratio 20 (6-20) 19 (6-20) 14 (6-20) Glucose Level 140 mg/dL (70-99) 108 mg/dL (70-99) 106 mg/dL (70-99) Calcium Level 8.7 mg/dL (8.5-10.1) 8.3 mg/dL (8.5-10.1) 8.2 mg/dL (8.5-10.1) Magnesium Level 2.2 mg/dL (1.8-2.4) Total Bilirubin 0.5 mg/dL (0.2-1.0) 0.6 mg/dL (0.2-1.0) 0.9 mg/dL (0.2-1.0) Aspartate Amino Transf (AST/SGOT) 22 U/L (15-37) 18 U/L (15-37) 16 U/L (15-37) Alanine Aminotransferase (ALT/SGPT) 25 U/L (14-59) 22 U/L (14-59) 20 U/L (14-59) Alkaline Phosphatase 92 U/L (46-116) 87 U/L (46-116) 88 U/L (46-116) Troponin I Quantitative 0.034 ng/mL (0-0.055) Total Protein 6.2 g/dL (6.4-8.2) 5.7 g/dL (6.4-8.2) 5.8 g/dL (6.4-8.2) Albumin 2.8 g/dL (3.4-5.0) 2.7 g/dL (3.4-5.0) 2.7 g/dL (3.4-5.0) Albumin/Globulin Ratio 0.8 (1.0-1.7) 0.9 (1.0-1.7) 0.9 (1.0-1.7) Thyroid Stimulating Hormone (TSH) 1.601 uIU/mL (0.358-3.740) Neutrophils (%) (Auto) 79 % (31-73) Lymphocytes (%) (Auto) 9 % (24-48) Monocytes (%) (Auto) 11 % (0-9) Eosinophils (%) (Auto) 0 % (0-3) Basophils (%) (Auto) 0 % (0-3) Neutrophils # (Auto) 6.9 x10^3uL (1.8-7.7) Lymphocytes # (Auto) 0.8 x10^3/uL (1.0-4.8) Monocytes # (Auto) 1.0 x10^3/uL (0.0-1.1) Eosinophils # (Auto) 0.0 x10^3/uL (0.0-0.7) Basophils # (Auto) 0.0 x10^3/uL (0.0-0.2) LF-Gig-A-Type Natriuretic Peptide 4047 pg/mL (0-449) Urine Collection Type U cath Urine Color Straw Urine Clarity Hazy Urine pH 7.0 Urine Specific [place] 1.020 Urine Protein Neg (NEG-TRACE) Urine Glucose (UA) 100 mg/dL (NEG) Urine Ketones (Stick) Neg mg/dL (NEG) Urine Blood Trace (NEG) Urine Nitrite Neg (NEG) Urine Bilirubin Neg (NEG) Urine Urobilinogen Dipstick 0.2 mg/dL (0.2 mg/dL) Urine Leukocyte Esterase Neg (NEG) Urine RBC 3-5 /HPF (0-2) Urine WBC Occ /HPF (0-4) Urine Squamous Epithelial Cells Few /LPF Urine Bacteria 0 /HPF (0-FEW) ASSESSMENT/PLAN Assessment/Plan 1. Dementia; requiring inpatient psychiatric stabilization 2. Anxiety, Depression 3. AFIB; rate controlled on Cardizem gtt 4. GERD 5. PNA Recommendations Resume metoprolol for rate control when able to take oral Titrate off Cardizem gtt ASA therapy Poor candidate for OAC given advance age, dementia, and other comorbidities making her at increased risk for falling Ongoing antibiotic therapy Recommend conservative measure given advanced age, comorbidities. Could consider outpatient echocardiogram to assess LV systolic function SY MALLOY APRN May 25, 2020 08:27
[2020-05-25] MEDS: LACTOBACILLUS RHAMNOSUS GG 1 CAPSULE. PO SCH ×2 (09:00→20:19)
[2020-05-25] MEDS ORDERED: VANCOMYCIN 750 MG in IV NORMAL SALINE 250ML 250 ML IV SCH (10:00)
--- NOTE | 2020-05-25 10:41 | NUR ---
Called Dr Shipman for pt BP of 81/42. Orders received. WCM.
[2020-05-25] MEDS ORDERED: IV NORMAL SALINE 500ML 500 ML IV ONE (10:45)
--- NOTE | 2020-05-25 11:14 | NUR ---
IP: patient PUI for COVID-19, requires contact and airborne precautions.
--- NOTE | 2020-05-25 17:57 | NUR ---
Pt has been sleeping most of the day. A few episodes of being figitty and agitated. Pt has hard time eating meats and harder foods. Will need to change diet according to pt. Pt was reswabbed for COVID today per Dr Shipman order.
--- NOTE | 2020-05-25 19:21 | PN ---
DATE: SUBJECTIVE: The patient is resting flat, comfortably, in no apparent distress. She continued to be fidgety, restless, requiring mittens; however, her Cardizem drip was discontinued. Her heart rate seems to be much better controlled now. She was given oral metoprolol. OBJECTIVE: GENERAL: This morning, when I examined her, she looked pale, cachectic, but no jaundice, cyanosis, or thyromegaly. No jugular venous distention. No lower limb edema. VITAL SIGNS: Her heart rate was 86, blood pressure was 106/44, temperature was 98.9, respiratory rate was 17, and oxygen saturation was 98%. HEAD, EYES, EARS, NOSE, AND THROAT: Showed normocephalic, atraumatic. NECK: Supple. HEART: Showed normal first and second heart sounds. No gallop or murmur. CHEST: Clear to auscultation. No crepitation or rhonchi. ABDOMEN: Distended, soft, nontender. NEUROLOGIC: She is demented; however, without any obvious lateralizing sign. All her cranial nerves intact. She moves extremities without difficulty, although she is mostly bedbound. Her intake was 1800, no output was recorded. LABORATORY DATA: The lab work as of this morning showed a white cell count of 10,000, hemoglobin 11, hematocrit 32, MCV 90, and platelet count 236,000. Serum sodium was 136, potassium 3.5, chloride 101, bicarbonate 25, anion gap of 10, BUN 13, creatinine 0.9, estimated GFR was 59 mL per minute. Her glucose 106. Calcium was 8.2. Total bilirubin, AST, ALT, alkaline phosphatase were normal. Total protein was 5.8, albumin 2.7. ASSESSMENT AND PLAN: 1. This is an 89-year-old female patient who was admitted to [address] [place] [address] for 48 hours' hold before she gets admitted to [facility] for inpatient psychiatric stabilization. She was found to be in atrial fibrillation with rapid ventricular response that required treatment with IV digoxin as well as Cardizem drip. Her heart rate seems to be much better controlled, her Cardizem drip was discontinued. Today, she was found to have urinary retention, requiring indwelling Valles catheter. 2. Gastroesophageal reflux disease. 3. Hypertension. 4. Osteoarthritis and osteoporosis. 5. Profound dementia with sundowning. Apparently, she has not slept the whole night despite treatment with trazodone and olanzapine. She has also pneumonia, for which she would continue with IV antibiotic in the form of Zosyn and vancomycin as per pharmacy recommendation. Continue with metoprolol to control the heart rate. Continue with Protonix for GI prophylaxis. Continue with lorazepam, trazodone, olanzapine for restlessness and agitation. ABEBA STROUD MD DR: MARK/eva JOB#: [id number] / [id number]
[2020-05-25] MEDS: traZODone 100 MG TABLET. PO PRN (20:19)
[2020-05-25] MEDS: MIRTAZAPINE 7.5 MG TABLET. PO SCH (20:19)
--- NOTE | 2020-05-25 21:48 | PDOC ---
Exam Note: [place] Note: Please also refer to the separate dictated note~for this date of service dictated separately.~Patient seen individually. Discussed the patient with Nursing staff reviewed the chart.~Reviewed interim history and current functioning. Reviewed vital signs,~Labs/ Radiology~and current medications noted below. Continue current treatment with the changes noted in the dictated addendum note Assessment: Vital Signs/I&O: Vital Signs Date Time Temp Pulse Resp B/P (MAP) Pulse Ox O2 Delivery O2 Flow Rate FiO2 05/25/20 20:00 Room Air 05/25/20 17:55 107 16 115/69 (84) 95 05/25/20 15:07 98.6 I & O 05/24/20 05/24/20 05/25/20 15:00 23:00 07:00 Intake Total 400 ml 50 ml Output Total 2100 ml 1850 ml 550 ml Balance -1700 ml -1850 ml -500 ml Labs: Laboratory Tests Test 05/25/20 06:10 White Blood Count 10.3 x10^3/uL (4.0-11.0) Red Blood Count 3.59 x10^6/uL (3.50-5.40) Hemoglobin 11.0 g/dL (12.0-15.5) L Hematocrit 32.4 % (36.0-47.0) L Mean Corpuscular Volume 90 fL (79-100) Mean Corpuscular Hemoglobin 31 pg (25-35) Mean Corpuscular Hemoglobin Concent 34 g/dL (31-37) Red Cell Distribution Width 14.0 % (11.5-14.5) Platelet Count 236 x10^3/uL (140-400) Sodium Level 136 mmol/L (136-145) Potassium Level 3.5 mmol/L (3.5-5.1) Chloride Level 101 mmol/L (98-107) Carbon Dioxide Level 25 mmol/L (21-32) Anion Gap 10 (6-14) Blood Urea Nitrogen 13 mg/dL (7-20) Creatinine 0.9 mg/dL (0.6-1.0) Estimated GFR (Cockcroft-Gault) 59.1 BUN/Creatinine Ratio 14 (6-20) Glucose Level 106 mg/dL (70-99) H Calcium Level 8.2 mg/dL (8.5-10.1) L Total Bilirubin 0.9 mg/dL (0.2-1.0) Aspartate Amino Transferase (AST) 16 U/L (15-37) Alanine Aminotransferase (ALT) 20 U/L (14-59) Alkaline Phosphatase 88 U/L (46-116) Total Protein 5.8 g/dL (6.4-8.2) L Albumin 2.7 g/dL (3.4-5.0) L Albumin/Globulin Ratio 0.9 (1.0-1.7) L Current Medications: Meds: Current Medications Medications (Trade) Dose Ordered Sig/Barbara Route PRN Reason Start Time Stop Time Status Last Admin Dose Admin Vancomycin HCl 750 mg/Sodium Chloride 250 ml @ 250 mls/hr Q24H IV 05/25/20 10:00 05/25/20 10:06 Lactobacillus Rhamnosus (Culturelle) 1 cap BID PO 05/25/20 09:00 05/25/20 20:19 Sodium Chloride 500 ml @ 0 mls/hr 1X ONCE IV 05/25/20 10:45 05/25/20 10:49 DC 05/25/20 10:51 I have reviewed the current psychotropics carefully including drug interactions. Risk benefit ratio favors no change other than as noted in my dictated progress note. 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
[2020-05-26] VITALS (17 sets, daily range): BP systolic 94–126; BP diastolic 48–75
[2020-05-26] MEDS: LORazepam 0.5 MG TABLET PO PRN (01:56)
--- NOTE | 2020-05-26 04:50 | NUR ---
Shift Note: Pt is a/o to self only, pt impulsive and pulls on lines/cords (mitts applied), pt continues to be in Afib (HR was elevated into the 120s-130s intermittently but not sustained), talavera to dependent drainage w/clear yellow urine noted, mepilex applied to pt's sacrum for protection, pt was swabbed for covid on 05/25 we are waiting for results, pt remains in isolation
[2020-05-26] MEDS: PIPERACILLIN/TAZOBACTAM 3.375 GM in IV NORMAL SALINE 50ML 50 ML IV SCH ×3 (06:01→20:50)
[2020-05-26] MEDS: LACTOBACILLUS RHAMNOSUS GG 1 CAPSULE. PO SCH ×2 (09:25→21:30)
[2020-05-26] MEDS: METOPROLOL TART IMMED RELEASE 50 MG TABLET PO SCH (09:25)
[2020-05-26] MEDS: PANTOPRAZOLE 40 MG TABLET. PO SCH (09:25)
[2020-05-26] MEDS: ASPIRIN CHEWABLE 81 MG TABLET. PO SCH (09:25)
[2020-05-26] MEDS: OLANZapine 7.5 MG TABLET PO SCH (09:26)
--- NOTE | 2020-05-26 09:40 | PDOC ---
CARDIO Progress Notes Date & Time Date of Service DATE: 05/26/20 TIME: 09:32 Time of Evaluation 09:32 Subjective Notes sleeping Vitals Vitals Vital Signs Date Time Temp Pulse Resp B/P (MAP) Pulse Ox O2 Delivery O2 Flow Rate FiO2 05/26/20 09:25 91 119/65 05/26/20 08:32 97.7 16 95 05/26/20 06:00 Room Air Weight Weight [ ] Input and Output I.O. Intake and Output 05/26/20 06:59 Intake Total 1520 ml Output Total 1100 ml Balance 420 ml Intake Oral 620 ml IV Total 900 ml Output Urine Total 1100 ml Laboratory Labs Laboratory Tests Test 05/24/20 12:10 05/25/20 06:10 Urine Collection Type U cath Urine Color Straw Urine Clarity Hazy Urine pH 7.0 Urine Specific [place] 1.020 Urine Protein Neg (NEG-TRACE) Urine Glucose (UA) 100 mg/dL (NEG) Urine Ketones (Stick) Neg mg/dL (NEG) Urine Blood Trace (NEG) Urine Nitrite Neg (NEG) Urine Bilirubin Neg (NEG) Urine Urobilinogen Dipstick 0.2 mg/dL (0.2 mg/dL) Urine Leukocyte Esterase Neg (NEG) Urine RBC 3-5 /HPF (0-2) Urine WBC Occ /HPF (0-4) Urine Squamous Epithelial Cells Few /LPF Urine Bacteria 0 /HPF (0-FEW) White Blood Count 10.3 x10^3/uL (4.0-11.0) Red Blood Count 3.59 x10^6/uL (3.50-5.40) Hemoglobin 11.0 g/dL (12.0-15.5) Hematocrit 32.4 % (36.0-47.0) Mean Corpuscular Volume 90 fL (79-100) Mean Corpuscular Hemoglobin 31 pg (25-35) Mean Corpuscular Hemoglobin Concent 34 g/dL (31-37) Red Cell Distribution Width 14.0 % (11.5-14.5) Platelet Count 236 x10^3/uL (140-400) Sodium Level 136 mmol/L (136-145) Potassium Level 3.5 mmol/L (3.5-5.1) Chloride Level 101 mmol/L (98-107) Carbon Dioxide Level 25 mmol/L (21-32) Anion Gap 10 (6-14) Blood Urea Nitrogen 13 mg/dL (7-20) Creatinine 0.9 mg/dL (0.6-1.0) Estimated GFR (Cockcroft-Gault) 59.1 BUN/Creatinine Ratio 14 (6-20) Glucose Level 106 mg/dL (70-99) Calcium Level 8.2 mg/dL (8.5-10.1) Total Bilirubin 0.9 mg/dL (0.2-1.0) Aspartate Amino Transf (AST/SGOT) 16 U/L (15-37) Alanine Aminotransferase (ALT/SGPT) 20 U/L (14-59) Alkaline Phosphatase 88 U/L (46-116) Total Protein 5.8 g/dL (6.4-8.2) Albumin 2.7 g/dL (3.4-5.0) Albumin/Globulin Ratio 0.9 (1.0-1.7) Microbiology Micro Microbiology 05/24/20 Blood Culture - Preliminary, Resulted NO GROWTH AFTER 1 DAY... Physical Exams HEENT: Neck Supple W Full Motion Chest: Symmetric Heart: irregularly irregular (AFIB, rate mostly controlled. Intermittent RVR noted overnight on tele.) Abdomen: Other (soft) Extremities: No Edema Neurology: other (sleeping) Assessment Assessment 1. Dementia; requiring inpatient psychiatric stabilization 2. Anxiety, depression 3. AFIB; rate mostly controlled. Intermittent RVR noted overnight 4 . GERD 5. PNA Recommendations Increase metoprolol for better rate control. Monitor rhythm ASA therapy Poor candidate for OAC given advance age, dementia, and other comorbidities making her at increased risk for falling Ongoing antibiotic therapy Supportive care SY MALLOY APRN May 26, 2020 09:40
[2020-05-26 10:42] LABS: VANC TR 5.3 mcg/mL (10.0-20.0)
[2020-05-26] MEDS: VANCOMYCIN PER PHARMACY MC PRN (11:18)
--- NOTE | 2020-05-26 11:18 | NUR ---
Pharmacy Vancomycin Dosing Note S:Consulted to monitor and dose vancomycin started 05/24/20. O:SILVESTRE ALVARADO is a 89 year old F with Pneumonia, . Height: 5 feet, 2 inches Weight: 44.7 kg [place] Body Weight: 50.10 Adjusted Body Weight: 47.94 Dosing Weight: Actual Other Antibiotics: ZOSYN 3.375GM Q6HRS LABS: Last BUN: 13 Last Creatinine: 0.9 Creatinine Clearance: 27.32 Last WBC: 10.3 Last Procalcitonin: Tmax (past 24 hours): Microbiology: I/O: Drug Levels: Last Trough level: 5.3 on 05/26/20 at 0930 Last dose given 05/25/20 at 1000 Vancomycin Dosing: Loading Dose: 1250 mg x1 Dosing Weight: Actual Target Trough: 15-20 A: Based on: P: 1. Change Vancomycin 750 mg IV q12h from q24hr 2. Follow up Trough level on 05/27/20 at 0930 3. Pharmacy will continue to monitor, follow and adjust therapy as needed. ROSALBA SANDOVAL [facility], 05/26/20 [id number]
[2020-05-26] MEDS ORDERED: VANCOMYCIN 750 MG in IV NORMAL SALINE 250ML 250 ML IV ONE (12:30)
--- NOTE | 2020-05-26 18:21 | NUR ---
PT SLEPT MOST OF SHIFT, HELP ALL SEDATING AND BEHAVIORAL MEDS. PT REMAINED AFEBRILE AND HEART BETWEEN 90-120S. PT ONLY TAKING IN VERY LITTLE PO. ASSESS PT WITH DR. STROUD THIS EVENING.
--- NOTE | 2020-05-26 19:27 | PN ---
DATE: 05/26/2020 SUBJECTIVE: The patient is resting, slightly propped up in bed, in no apparent distress. Her heart rate is generally much controlled, although she continued to have episode of RVR. She apparently was given olanzapine and has been much more sedated, although she continued to require mittens. On questioning her, she denied any complaint. OBJECTIVE: GENERAL: On examining her, she was pale, cachectic, but no jaundice or cyanosis. No lymphadenopathy, no thyromegaly. No jugular venous distention. No lower limb edema. VITAL SIGNS: Her heart rate was 102, blood pressure was 109/53, temperature was 99.1, respiratory rate 21 and oxygen saturation was 90% on room air. HEAD, EYES, EARS, NOSE AND THROAT: Showed normocephalic, atraumatic. NECK: Supple. HEART: Showed normal first and second heart sounds with no gallop, rub or murmur. CHEST: Clear to auscultation. No crepitation or rhonchi anteriorly. ABDOMEN: Distended, soft, nontender. NEUROLOGIC: She was demented, but without any obvious lateralizing sign. Her intake over the last 24 hours was 450, output was 4500. LABORATORY DATA: Her most recent lab work showed a white cell count of 10,000, hemoglobin 11, hematocrit 32, MCV 90 and platelet count 238,000. Her chemistry showed a serum sodium 136, potassium 3.5, chloride 101, bicarbonate 25, anion gap of 10, BUN 13, creatinine 0.9, estimated GFR was 59 mL per minute. Her glucose 106, calcium was 8.2. Total bilirubin, AST, ALT, alkaline phosphatase were normal. Total protein 5.8, albumin 2.7. Her coronavirus-2 PCR was not detectable twice on 05/23/2020 and 05/25/2020. Her urinalysis was essentially unremarkable. ASSESSMENT: 1. This is an 89-year-old female patient who was admitted to [address] [place] [address] for 48 hours, hold before she gets admitted to [facility] for inpatient psychiatric stabilization. 2. She was found to be in atrial fibrillation with rapid ventricular response that required treatment with IV digoxin as well as Cardizem drip. Her heart rate seemed to be much better controlled now. She is on metoprolol. 3. She has urinary retention requiring indwelling Valles catheter. 4. Other medical problems include: A. Gastroesophageal reflux disease. B. Hypertension. C. Osteoarthritis and osteoporosis. D. Profound dementia with behavioral disturbances. 5. The patient has pneumonia. She did actually spike her temperature and chest x-ray showed that she has retrocardiac infiltrate, for which she is now on IV vancomycin and Zosyn. PLAN: Probably needs to switch her antibiotic to be given orally and given that her heart rate is now much better controlled, she can be transferred tomorrow to [facility] if she meets their criteria. ABEBA STROUD MD DR: MARK/eva JOB#: [id number] / [id number]
[2020-05-26] MEDS: MIRTAZAPINE 7.5 MG TABLET. PO SCH (21:30)
[2020-05-26] MEDS ORDERED: VANCOMYCIN 750 MG in IV NORMAL SALINE 250ML 250 ML IV SCH (22:00)
--- NOTE | 2020-05-26 22:02 | PDOC ---
Exam Note: Austin Note: Please also refer to the separate dictated note~for this date of service dictated separately.~Patient seen individually. Discussed the patient with Nursing staff reviewed the chart.~Reviewed interim history and current functioning. Reviewed vital signs,~Labs/ Radiology~and current medications noted below. Continue current treatment with the changes noted in the dictated addendum note Assessment: Vital Signs/I&O: Vital Signs Date Time Temp Pulse Resp B/P (MAP) Pulse Ox O2 Delivery O2 Flow Rate FiO2 05/26/20 21:06 100 18 116/72 (87) 95 Room Air 05/26/20 20:21 98.2 I & O 05/25/20 05/25/20 05/26/20 15:00 23:00 07:00 Intake Total 600 ml 870 ml 100 ml Output Total 150 ml 950 ml Balance 600 ml 720 ml -850 ml Labs: Laboratory Tests Test 05/26/20 09:45 Vancomycin Level Trough 5.3 mcg/mL (10.0-20.0) L Vancomycin Last Dose Date 05/25/20 Vancomycin Last Dose Time 1000 Current Medications: Meds: Current Medications Medications (Trade) Dose Ordered Sig/Barbara Route PRN Reason Start Time Stop Time Status Last Admin Dose Admin Vancomycin HCl (Vancomycin Trough Level) 1 each 1X ONCE MC 05/26/20 09:30 05/26/20 09:31 DC 05/26/20 09:30 Aspirin (Aspirin Chewable) 81 mg DAILYWBKFT PO 05/26/20 08:00 05/26/20 09:25 Metoprolol Tartrate (Lopressor) 50 mg DAILY PO 05/26/20 09:00 05/26/20 09:25 Vancomycin HCl 750 mg/Sodium Chloride 250 ml @ 250 mls/hr Q12H IV 05/26/20 22:00 05/26/20 21:30 Piperacillin Sod/ Tazobactam Sod 3.375 gm/Sodium Chloride 50 ml @ 100 mls/hr Q6H IV 05/26/20 21:00 05/26/20 20:50 I have reviewed the current psychotropics carefully including drug interactions. Risk benefit ratio favors no change other than as noted in my dictated progress note. 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
[2020-05-27 01:53] VITALS: BP 140/67
[2020-05-27] MEDS: PIPERACILLIN/TAZOBACTAM 3.375 GM in IV NORMAL SALINE 50ML 50 ML IV SCH ×2 (02:28→08:13)
[2020-05-27 03:06] VITALS: BP 146/69
[2020-05-27 04:03] VITALS: BP 133/78
--- NOTE | 2020-05-27 04:59 | NUR ---
Shift Note: Pt is a/o to self only, pt impulsive and pulls on lines/cords (pt cont to wear mitts), left FA IV leaking and was removed, left hand IV remains, pt continues to be in Afib, talavera to dependent drainage w/clear yellow urine noted, mepilex remains on pt's sacrum for protection, Covid negative x2, pt more cooperative with staff this shift, conversing and asking to pray with staff, NO trazadone/lorazepam/ or zyprexa given this shift, pt able to sleep throughout the night.
[2020-05-27 06:13] VITALS: BP 151/87
[2020-05-27 07:00] VITALS: BP 117/65
--- NOTE | 2020-05-27 08:01 | PDOC ---
CARDIO Progress Notes Date & Time Date of Service DATE: 05/27/20 TIME: 08:00 Time of Evaluation 08:00 Subjective Notes more awake, alert today. Opens eyes some with communication Vitals Vitals Vital Signs Date Time Temp Pulse Resp B/P (MAP) Pulse Ox O2 Delivery O2 Flow Rate FiO2 05/27/20 07:00 78 14 117/65 (82) 98 Room Air 05/27/20 06:13 97.9 Weight Weight [ ] Input and Output I.O. Intake and Output 05/27/20 07:00 Intake Total 740 ml Output Total 400 ml Balance 340 ml Intake Oral 340 ml IV Total 400 ml Output Urine Total 400 ml Laboratory Labs Laboratory Tests Test 05/25/20 14:00 05/26/20 09:45 Coronavirus (PCR) Not detected (Not Detected) Vancomycin Level Trough 5.3 mcg/mL (10.0-20.0) Vancomycin Last Dose Date 05/25/20 Vancomycin Last Dose Time 1000 Microbiology Micro Microbiology 05/24/20 Blood Culture - Preliminary, Resulted NO GROWTH AFTER 2 DAYS... Physical Exams HEENT: Neck Supple W Full Motion Chest: Symmetric Lungs: Clear to Auscultation Heart: irregularly irregular (AFIB, rate mostly controlled. Intermittent RVR noted overnight on tele.) Abdomen: Other (soft) Extremities: No Edema Neurology: alert, confused Assessment Assessment 1. Dementia; requiring inpatient psychiatric stabilization 2. Anxiety, depression 3. AFIB; rate controlled 4 . GERD 5. PNA Recommendations Continue metoprolol for rate control. ASA therapy Poor candidate for OAC given advance age, dementia, and other comorbidities making her at increased risk for falling Ongoing antibiotic therapy Supportive care No further cardiac w/u at this time. YS MALLOY APRN May 27, 2020 08:00
[2020-05-27] MEDS: OLANZapine 7.5 MG TABLET PO SCH (08:12)
[2020-05-27] MEDS: LACTOBACILLUS RHAMNOSUS GG 1 CAPSULE. PO SCH (08:12)
[2020-05-27] MEDS: ASPIRIN CHEWABLE 81 MG TABLET. PO SCH (08:12)
[2020-05-27] MEDS: PANTOPRAZOLE 40 MG TABLET. PO SCH (08:12)
[2020-05-27 08:13] VITALS: BP 123/71
[2020-05-27] MEDS: METOPROLOL TART IMMED RELEASE 50 MG TABLET PO SCH (08:13)
--- NOTE | 2020-05-27 10:15 | NUR ---
Discharge/Transfer note: This RN took all invasive lines out and took pt belongings to [facility] unit room 210 in wheelchair. Pt VSS at this time and able to ambulate from bed to wheelchair with assistance by this RN. She is able to follow commands and alert to self and place. Report given to Ella OAKLEY upon transfer to [facility]. Medications reviewed with nurse and all questions answered. Katia OAKLEY
[2020-05-27] MEDS ORDERED: OLAN5TAB99 PO (11:21)
[2020-05-27] MEDS ORDERED: MIRT15TA PO (11:21)
[2020-05-27] MEDS ORDERED: PANT40TA3 PO (11:21)
[2020-05-27] MEDS ORDERED: ACET650S11 PR (11:21)
[2020-05-27] MEDS ORDERED: AMOX1TAB61 PO (11:21)
[2020-05-27] MEDS ORDERED: ASPI-630 PO (11:21)
[2020-05-27] MEDS ORDERED: LORA-254 PO (11:21)
--- NOTE | 2020-05-27 13:20 | DS ---
DATE OF DISCHARGE: 05/27/2020 ATTENDING PHYSICIAN: Dr. Shipman. FINAL DISCHARGE DIAGNOSES: 1. Atrial fibrillation with rapid ventricular rate, controlled. 2. Underlying dementia with behavioral issues. 3. Pneumonia, left lower lobe, treated. 4. COVID-19 coronavirus ruled out. 5. Gastroesophageal reflux disease. 6. Degenerative arthritis. 7. Profound dementia with agitation. HISTORY AND PHYSICAL: This is an 89-year-old female admitted to [address] [place] [address] for 48-hour hold before she gets admitted to the [facility] Unit for psychiatric stabilization. She has underlying dementia with behavioral issues. She was found to have an infiltrate in the left lower lobe. COVID-19 swabs were done to rule out coronavirus. PHYSICAL EXAMINATION: Please see the dictated note. PERTINENT LABORATORY AND X-RAY STUDIES: Chest x-ray as noted on admission showed an infiltrate in the left lower lobe and a small pleural effusion. Hemoglobin was 12.6 g/dL with a white count of 8700, repeated it was down to 11.0 g/dL. Chemistry panel unremarkable. Nonfasting blood sugar 106. Transaminases are normal. Electrolytes within normal range. Urinalysis was clear, specific gravity 1.020. Two swabs for coronavirus were negative on 05/23/2020 and 05/25/2020. COURSE IN THE HOSPITAL: The patient was admitted. She received 4 full days of intravenous antibiotics. She did well. Cardiology Services were asked to help with her atrial fibrillation, ventricular rate was controlled with increase of her metoprolol to 50 mg b.i.d. On the fifth hospital day, her vital signs are stable. She had adequate oxygenation on room air saturations. Her blood pressure was 117/65 mmHg, ventricular rate between 70 and 80 and her temperature was 97.0 degrees Fahrenheit. She was therefore discharged from the medical floor to go upstairs to the [facility]. Her discharge meds will include Augmentin 875 b.i.d. for 7 more days, then stop, metoprolol 50 mg b.i.d., amitriptyline 25 mg at bedtime, Lumigan eye drops, Zyprexa 7.5 mg daily, omeprazole 40 mg daily, oxazepam 10 mg p.r.n. and trazodone 100 mg p.o. at bedtime. She is a DNR per advanced directive. She was discharged then from our hospital in the unit to the [facility] in stable condition with explicit instructions and followup care. Total discharge time spent 39 minutes. LENIN VANESSA MD DR: [email or web address]/eva JOB#: [id number] / [id number] [facility], [facility]
--- NOTE | 2020-05-28 06:36 | PDOC ---
Exam Note: Austin Note: This note is a late entry for 05/25/2020 covers elements not covered in my initial note. Subjective: The patient was reviewed on telehealth rounds due to COVID-19 restrictions on the unit in the evening of 05/25/2020 with Lois OAKLEY. Discussed with nursing staff, reviewed the chart. She remains confused, so mewhat restless at times. She was started on trazodone. Nursing staff had called me earlier in the day and we had initiated this because of her marked agitation and we will be repeating the trazodone at night to help her with her sleep. She continues to wear the mitts otherwise she pulls out her lines. Review of Systems: No CV, , pulmonary, eye, ENT system symptoms on review. Ambulation impaired. Mental Status Exam: Oriented to herself. Insight and judgment, recent and remote memory, attention and concentration, fund of knowledge is poor consistent with her diagnoses. Laboratory Data: Reviewed. Impression: Major neurocognitive disorder Alzheimer, vascular with delusion, depression, behavioral disturbance. Anxiety disorder unspecified. Impulse control disorder unspecified. Rest unchanged. Plan: No change from initial note. Assessment: Vital Signs/I&O: Vital Signs Date Time Temp Pulse Resp B/P (MAP) Pulse Ox O2 Delivery O2 Flow Rate FiO2 05/27/20 08:13 89 123/71 05/27/20 07:00 14 98 Room Air 05/27/20 06:13 97.9 I & O 05/27/20 05/27/20 05/28/20 15:00 23:00 07:00 Intake Total 200 ml Output Total 150 ml Balance 50 ml Current Medications: I have reviewed the current psychotropics carefully including drug interactions. Risk benefit ratio favors no change other than as noted in my dictated progress note. 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
--- NOTE | 2020-05-28 06:44 | PDOC ---
Exam Note: [place] Note: This note is a late entry for 05/26/2020 covers elements not covered in my initial note. Subjective: The patient was seen face to face in the evening of 05/26/2020 with Ella OAKLEY. Discussed with nursing staff, reviewed the chart. The patient has been less agitated. Medically she seems more stable. Dr. Shipman feels she is medically stable once I transfer her to the [facility]. She remains confused, intermittently agitated and restless. She has still had her mitts in place but was not pulling on the IV lines. Review of Systems: No CV, , pulmonary, eye, ENT system symptoms on review. Ambulation impaired. Mental Status Exam: Insight and judgment, recent and remote memory, attention and concentration, fund of knowledge is poor consistent with her diagnoses. She was not verbal as I met with her. Laboratory Data: Reviewed. Impression: Major neurocognitive disorder Alzheimer, vascular with delusion, depression, behavioral disturbance. Anxiety disorder unspecified. Impulse control disorder unspecified. Rest unchanged. Plan: Continue rest unchanged. Assessment: Vital Signs/I&O: Vital Signs Date Time Temp Pulse Resp B/P (MAP) Pulse Ox O2 Delivery O2 Flow Rate FiO2 05/27/20 08:13 89 123/71 05/27/20 07:00 14 98 Room Air 05/27/20 06:13 97.9 I & O 05/27/20 05/27/20 05/28/20 15:00 23:00 07:00 Intake Total 200 ml Output Total 150 ml Balance 50 ml Current Medications: I have reviewed the current psychotropics carefully including drug interactions. Risk benefit ratio favors no change other than as noted in my dictated progress note. 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
== END 2020-05-27 10:15 | DRG 177 ==
LOC: LND 18:10 → ICU 05-23 19:22
PROVIDERS: ADMIT Internal Medicine; ATTEND Internal Medicine
DX: J15.6 Pneumonia due to other Gram-negative bacteria (principal); E43 Unspecified severe protein-calorie malnutrition; F01.51 Vascular dementia, unspecified severity, with behavioral disturbance; F02.81 Dementia in other diseases classified elsewhere, unspecified severity, with behavioral disturbance; F05 Delirium due to known physiological condition; Z68.1 Body mass index [BMI] 19.9 or less, adult; I48.91 Unspecified atrial fibrillation; F32.9 Major depressive disorder, single episode, unspecified; F41.9 Anxiety disorder, unspecified; F63.9 Impulse disorder, unspecified; G30.9 Alzheimer's disease, unspecified; I10 Essential (primary) hypertension; K21.9 Gastro-esophageal reflux disease without esophagitis; M19.90 Unspecified osteoarthritis, unspecified site; M81.0 Age-related osteoporosis without current pathological fracture; Z20.828 Contact with and (suspected) exposure to other viral communicable diseases; Z66 Do not resuscitate; Z79.899 Other long term (current) drug therapy; Z87.440 Personal history of urinary (tract) infections
CPT/HCPCS: 36415; 71045; 80053; 80202; 81001; 83735; 83880; 84443; 84484; 85025; 85027; 87040; 93005; J1160; J2543; J3370; J3490; J7040; J7050; U0003-CS

== ENCOUNTER 2020-05-27 10:16 | Inpatient (IN) | payer MEDICARE ==
[~2020-05-27] VITALS: Ht 157.5 cm; Wt 32.7 kg
[~2020-05-27 10:16] MED LIST: AMIT25TA PO; BIMA2.5D OP; METO25TA4 PO; OLAN7.5T3 PO; OMEP40CA45 PO; OXAZ10CA3 PO; TRAZ-125 PO
--- NOTE | 2020-05-27 10:30 | NUR ---
Admission Note with Justification for Admission to [facility] Patient admitted to [facility] for protective oversight for emergency stabilization of acute psychiatric crisis. Pt admitted from: ICU Mode of arrival: Wheelchair Accompanied By: [facility] Staff Precipitating behaviors that initiated intake and admission: impulsive, pulls on lines and cords, fidgety, periods of agitation, daughter reports pt to be aggressive at home, putting self on floor, shannan Description of failure of out patient attempts at stabilization in previous setting list behavior and medication trials: ER, admitted, has been followed by neuropsychologist Behaviors and assessment findings upon admission: Pt is slightly drowsy, but calm and cooperative with assessment. Pt is A&Ox2. She has a few scabs on both her arms that she tends to pick at. After assessment, pt laid in bed to get warm and quickly fell to sleep. Will continue to monitor. Plan: Admit for protective oversight for adjustment and stabilization of medications, behaviors and mood. Intense treatment regimen including groups, medication adjustments, therapy, consistent regimen for ADL's, self care, and sleep hygiene. Daily monitoring by Inpatient staff, Psychiatry, and Medical Physician.
[2020-05-27 10:48] VITALS: BP 157/94
[2020-05-27] MEDS ORDERED: MIRT15TA PO (11:21)
[2020-05-27] MEDS ORDERED: AMOX1TAB61 PO (11:21)
[2020-05-27] MEDS ORDERED: ASPI-630 PO (11:21)
[2020-05-27] MEDS ORDERED: OLAN5TAB99 PO (11:21)
[2020-05-27] MEDS ORDERED: LORA-254 PO (11:21)
[2020-05-27] MEDS ORDERED: ACET650S11 PR (11:21)
[2020-05-27] MEDS ORDERED: PANT40TA3 PO (11:21)
[2020-05-27] MEDS ORDERED: ACETAMINOPHEN 325 MG TABLET PO PRN (11:30)
[2020-05-27] MEDS ORDERED: METHYL SALICYLATE/MENTHOL TOPICAL OINTMENT 57GM TUBE. TP PRN (11:30)
[2020-05-27] MEDS ORDERED: MAG HYDROX/AL HYDROX/SIMETH 30 ML ORAL.SUSP PO PRN (11:30)
[2020-05-27 13:33] LABS: BASO # 0.1 x10^3/uL (0.0-0.2); BASO % 1 % (0-3); EOS # 0.1 x10^3/uL (0.0-0.7); EOS % 1 % (0-3); HEMATOCRIT 36.7 % (36.0-47.0); HEMOGLOBIN 12.2 g/dL (12.0-15.5); LYMPH # 0.6 x10^3/uL (1.0-4.8); LYMPH % 6 % (24-48); MEAN CORPUSCULAR HEMOGLOBIN 30 pg (25-35); MEAN CORPUSCULAR HGB CONC 33 g/dL (31-37); MEAN CORPUSCULAR VOLUME 91 fL (79-100); MONO # 0.8 x10^3/uL (0.0-1.1); MONO % 9 % (0-9); NEUT # 7.9 x10^3uL (1.8-7.7); NEUT % 84 % (31-73); PLATELET COUNT 279 x10^3/uL (140-400); RED BLOOD COUNT 4.02 x10^6/uL (3.50-5.40); WHITE BLOOD COUNT 9.4 x10^3/uL (4.0-11.0)
[2020-05-27 13:48] LABS: ALBUMIN 2.7 g/dL (3.4-5.0); ALBUMIN/GLOBULIN RATIO 0.8 (1.0-1.7); CALCIUM 8.6 mg/dL (8.5-10.1); CREATININE 0.9 mg/dL (0.6-1.0); GFR 59.1; MAGNESIUM 2.2 mg/dL (1.8-2.4); POTASSIUM 3.4 mmol/L (3.5-5.1); TOTAL BILIRUBIN 0.8 mg/dL (0.2-1.0); TOTAL PROTEIN 6.3 g/dL (6.4-8.2)
[2020-05-27] MEDS ORDERED: ACETAMINOPHEN 650 MG SUPP.RECT. PR PRN (15:00)
[2020-05-27] MEDS ORDERED: LORazepam 0.5 MG TABLET PO PRN (15:00)
[2020-05-27 15:06] VITALS: BP 139/79
--- NOTE | 2020-05-27 16:33 | NUR ---
PSYCHOSOCIAL ASSESSMENT ADMISSION DATE: 05/27/20 CONTACT INFORMATION: DPOA/Guardian Contact Name: Sara Butler Contact Address: [address] [place] [id number] Contact Phone #: ETHNIC ORIGIN: REASONS FOR ADMISSION: Agitated Confusion/Disoriented Poor impulse control Other ADDITIONAL ADMISSION COMMENTS: According to the intake, pt was on the medical floor being impulsive, pulling lines and cords in her room, fidgety, having periods of agitation. Dtr reports that at home pt was aggressive towards her and putting herself on the floor and at times manic. REASON FOR ADMISSION IN PATIENT/FAMILY'S OWN WORDS: She has continued to decline since January of this year PATIENT/FAMILY EXPECTATIONS FOR ADMISSION: Behavioral management and medication assessment LIVING SITUATION: Patient lives with: Child/children Other living arrangements: Pt lives with dtr, Sara Butler Contact Name: Contact Address: Contact Phone #: Contact Fax #: FAMILY RELATIONS: Marital Status: # of Marriages: 1 # of Children: 3 [facility] Family Support: Cooperative Involved in DC Planning Additional Comments r/t Family: Pt had been for almost 39 years to her Jewel who roughly in the early 80's due to Cancer. Pt and her had 3 children with 1 living (Sara). Pt had a son pass at the age of 60 from Cancer and a dtr who at the age of 18 who was cognitively disabled. SIGNIFICANT PSYCHIATRIC/MEDICAL HISTORY: Psychiatric/Treatment History: This is pt first psychiatric stay on [facility]. Pt has seen a neuropsychologist at and gave pt a dx of Dementia. Pertinent Family History: No mental health noted but has Cancer history HISTORICAL DATA: Childhood Environment: Nurturing Childhood Environment Additional Comments: Pt was born and raised in [place], [place] where pt parents were farmers. Pt has 2 brothers who are still living and active. They talk to each other a couple times a week. 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 service: N Protestant background: Pt dtr reports that pt considers herself as a devout follower of the [employer] jason. Pt has not been to evangelical since Covid started; however, faithfully watches sermons on television. Sexual orientation: Heterosexual Educational Level: Pt graduated high school; 12th grade completed Past/Present Interests/Hobbies: Sports (Royals[employer]s); Newspaper and [employer]; [employer] services Financial support/resources: Social Security Monthly income: Person handling finances: Pt dtr handles pt finances Do you have a history of legal problems: N Cultural considerations: None SOCIAL RELATIONSHIPS-CURRENT/PAST: Psychiatrist: NONE PCP: Dr. Melissa [phone] Counselor/Therapist: NONE [facility]: NONE Support Group: NONE Stacker Tender/Mold Presser: NONE Other relationships: NONE STRENGTHS & WEAKNESSES: Patient's strengths: Good family support Stable living arrange Other patient strengths: Patient's weaknesses: Impulsive Physically Aggressive Other patient weaknesses: PRELIMINARY PLAN OF TREATMENT: Preliminary plan: Promote Coping Skill Medication Stabilization Monitor Med Effects Other Other preliminary treatment comments: Decrease impulsivity DISCHARGE PLANNING: Discharge planning/disposition: Current Living Arrange. Additional discharge needs identified: Mental health services ADDITIONAL INFORMATION: Other Pertinent Data: RADHA completed the psychosocial with pt dtr who reports that prior to coming to live with her, pt lived in [place] and started having enough trouble that pt primary care felt that pt was starting to have dementia. Blood work and tests were completed, showing no signs of stroke or any major medical trauma. Pt was referred to a Neuropsychologist at and they also dx pt with Dementia. Pt moved with her dtr in January and was found to have a UTI. Pt was treated with 2 ABX and cleared but pt confusion appears to have worsened. Pt dtr does not wish to have pt go to placement. She wants pt to be stable enough to return home to her and is open to having services if possible. RADHA discussed with pt dtr about having tx team on and having pt dtr participate in the meeting.
--- NOTE | 2020-05-27 16:57 | TX PLAN ---
Interdisciplinary Tx Plan Admission Information May 27, 2020 at 10:16 Legal Status (on Admission): Voluntary DPOA/Guardian Name: Sara Butler Contact Verified Code Status: DNR Allergies: Coded Allergies: No Known Drug Allergies (Unverified , 05/22/20) Diagnoses Primary Diagnosis: Major Neurocognitive D/O Reasons for Admission: Agitated, Confusion/Disoriented, Poor impulse control, Other Problem in Patient's Words: She has continued to decline since January of this year Additional Admission Comments: According to the intake, pt was on the medical floor being impulsive, pulling lines and cords in her room, fidgety, having periods of agitation. Dtr reports that at home pt was aggressive towards her and putting herself on the floor and at times manic. Problems Active Problems: Restless Minor sundowning Inactive Problems: Medication compliance Pt Strengths/Limitations Ability for Harmon: Poor Cognitive Functioning/Ability: Fair Communication Skills/Ability: Fair Financial Resources: Fair Insight/Judgement: Poor Intellectual Ability: Fair Physical Health: Fair Social Skills: Fair Stability in Family: Fair Stability in School/Work: Poor Verbal Skills: Fair Discharge Criteria Discharge Criteria: Able meet basic life need, Adequate arrangements @DC, Improved behavior, Improved mood/thought Preliminary Discharge Plan Preliminary DC Plan: Current Living Arrange. Special Precautions Fall Risk: Moderate Initial D/C Plan Pt dtr wishes for pt to return home once stable Identified Discharge Needs: Mental health services Currently Utilized Resources Currently Utilized Resources/P: Primary Care Physician Referrals Community Resources: Psychiatry Behavioral Health nurse/services Identified Problems/Hx/Goals Objectives/Short-Term Goals Short Term Goals: Medication Stabilization, Monitor Med Effects, Promote Coping Skill, Other Short Term Goals in Patient's: Medication assessment and behavioral managment Interventions/Frequency Staff Interventions/Frequency&: Psychiatrist to assess pt at least 3x per week for medication management. Social work to assess pt at least 2x per week for discharge planning, care needs and barriers. Nursing to assess behaviors, medication and complete 15 minute checks daily. 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 Education: Pt graduated high school; 12th grade completed Community Follow-up Primary Care Physician Referral to [facility] at discharge Treatment Plan Explained Patient/Chief Financial Officer had this treatment plan explained to him/her as indicated by the signature below and has been given the opportunity to ask questions and make suggestions: Date: Patient/Chief Financial Officer Signature: Patient/Chief Financial Officer Decline: JANNA Glover May 27, 2020 16:57
[2020-05-27 19:42] VITALS: BP 120/71
[2020-05-27] MEDS: METOPROLOL TART IMMED RELEASE 25 MG TABLET. PO SCH (20:01)
[2020-05-27] MEDS: MIRTAZAPINE 7.5 MG TABLET. PO SCH (20:01)
[2020-05-27] MEDS: AMOXICILLIN/K CLAV 875/125MG TABLET. PO SCH (20:01)
--- NOTE | 2020-05-27 20:36 | NUR ---
Nursing Note: Location of Patient during Assessment: Pt withdrawn to room, lying in bed at shift change. Behaviors Mood and Affect this shift: Pt calm, pleasant, and interactive with staff when approached. Medication Compliant: Compliant with HS medications administered crushed in pudding. Assessment Compliant: Cooperative and compliant with assessment. Staff monitoring urine output and retention r/t talavera removal today. BS @2035 yields >187ml retained urine in the bladder. Will continue to monitor throughout the shift and bladder scan as needed. Response After Interventions: Pt currently resting quietly in bed with eyes closed.
--- NOTE | 2020-05-27 21:52 | PDOC ---
Exam Note: Austin Note: Please also refer to the separate dictated note~for this date of service dictated separately.~Patient seen individually. Discussed the patient with Nursing staff reviewed the chart.~Reviewed interim history and current functioning. Reviewed vital signs,~Labs/ Radiology~and current medications noted below. Continue current treatment with the changes noted in the dictated addendum note Assessment: Vital Signs/I&O: Vital Signs Date Time Temp Pulse Resp B/P (MAP) Pulse Ox O2 Delivery O2 Flow Rate FiO2 05/27/20 20:01 86 120/71 05/27/20 15:06 98.2 16 94 Room Air Labs: Laboratory Tests Test 05/27/20 13:15 White Blood Count 9.4 x10^3/uL (4.0-11.0) Red Blood Count 4.02 x10^6/uL (3.50-5.40) Hemoglobin 12.2 g/dL (12.0-15.5) Hematocrit 36.7 % (36.0-47.0) Mean Corpuscular Volume 91 fL (79-100) Mean Corpuscular Hemoglobin 30 pg (25-35) Mean Corpuscular Hemoglobin Concent 33 g/dL (31-37) Red Cell Distribution Width 14.0 % (11.5-14.5) Platelet Count 279 x10^3/uL (140-400) Neutrophils (%) (Auto) 84 % (31-73) H Lymphocytes (%) (Auto) 6 % (24-48) L Monocytes (%) (Auto) 9 % (0-9) Eosinophils (%) (Auto) 1 % (0-3) Basophils (%) (Auto) 1 % (0-3) Neutrophils # (Auto) 7.9 x10^3uL (1.8-7.7) H Lymphocytes # (Auto) 0.6 x10^3/uL (1.0-4.8) L Monocytes # (Auto) 0.8 x10^3/uL (0.0-1.1) Eosinophils # (Auto) 0.1 x10^3/uL (0.0-0.7) Basophils # (Auto) 0.1 x10^3/uL (0.0-0.2) D-Dimer (Dahiana) 4.06 mg/L (0.00-0.50) H Sodium Level 138 mmol/L (136-145) Potassium Level 3.4 mmol/L (3.5-5.1) L Chloride Level 102 mmol/L (98-107) Carbon Dioxide Level 27 mmol/L (21-32) Anion Gap 9 (6-14) Blood Urea Nitrogen 21 mg/dL (7-20) H Creatinine 0.9 mg/dL (0.6-1.0) Estimated GFR (Cockcroft-Gault) 59.1 BUN/Creatinine Ratio 23 (6-20) H Glucose Level 151 mg/dL (70-99) H Calcium Level 8.6 mg/dL (8.5-10.1) Magnesium Level 2.2 mg/dL (1.8-2.4) Total Bilirubin 0.8 mg/dL (0.2-1.0) Aspartate Amino Transferase (AST) 17 U/L (15-37) Alanine Aminotransferase (ALT) 18 U/L (14-59) Alkaline Phosphatase 96 U/L (46-116) Total Protein 6.3 g/dL (6.4-8.2) L Albumin 2.7 g/dL (3.4-5.0) L Albumin/Globulin Ratio 0.8 (1.0-1.7) L Current Medications: Meds: Current Medications Medications (Trade) Dose Ordered Sig/Barbara Route PRN Reason Start Time Stop Time Status Last Admin Dose Admin Amoxicillin/ Clavulanate Potassium (Augmentin 875/ 125mg) 1 tab BID PO 05/27/20 21:00 06/02/20 12:00 05/27/20 20:01 Metoprolol Tartrate (Lopressor) 50 mg BID PO 05/27/20 21:00 05/27/20 20:01 Mirtazapine (Remeron) 7.5 mg QHS PO 05/27/20 21:00 05/27/20 20:01 I have reviewed the current psychotropics carefully including drug interactions. Risk benefit ratio favors no change other than as noted in my dictated progress note. 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
[2020-05-27] MEDS: traZODone 100 MG TABLET. PO PRN (22:41)
--- NOTE | 2020-05-28 00:09 | NUR ---
Nursing Note: Pt BS yields >341ml retained urine in the bladder. Per protocol, bladder drained of 450ml dark yellow urine and UA collected and sent to the lab. Pt tolerated procedure well and is currently resting.
[2020-05-28 00:37] LABS: BILIRUBIN,URINE NEG (NEG); CLARITY,URINE HAZY; COLOR,URINE YELLOW; GLUCOSE,URINE 100 mg/dL (NEG)
[2020-05-28 00:38] LABS: BACTERIA,URINE 0 /HPF (0-FEW); NITRITE,URINE NEG (NEG); RBC,URINE 0 /HPF (0-2); SQUAMOUS EPITHELIAL CELL,UR OCC /LPF; UROBILINOGEN,URINE 0.2 mg/dL (0.2 mg/dL); WBC,URINE OCC /HPF (0-4); YEAST,URINE PRESENT /HPF
[2020-05-28 03:07] LABS: THYROXINE 5.7 ug/dL (4.5-12.0)
[2020-05-28 04:08] LABS: HEMOGLOBIN A1C 5.7 % (4.8-5.6)
[2020-05-28 06:12] VITALS: BP 141/63
--- NOTE | 2020-05-28 06:42 | NUR ---
Nursing Note: Pt voided on her own this morning, however BS yielded >356ml post void residual. Call placed to Dr. Foster and order obtained to replace talavera catheter. Talavera catheter reinserted to d/d without difficulty and is currently draining clear yellow urine. Pt tolerated procedure well.
[2020-05-28] MEDS: METOPROLOL TART IMMED RELEASE 25 MG TABLET. PO SCH ×2 (09:09→21:14)
[2020-05-28] MEDS: AMOXICILLIN/K CLAV 875/125MG TABLET. PO SCH ×2 (09:09→21:14)
[2020-05-28] MEDS: PANTOPRAZOLE 40 MG TABLET. PO SCH (09:11)
[2020-05-28] MEDS: ASPIRIN CHEWABLE 81 MG TABLET. PO SCH (09:11)
[2020-05-28] MEDS: OLANZapine 7.5 MG TABLET PO SCH (09:11)
--- NOTE | 2020-05-28 09:15 | NUR ---
Nurse answered call light to find patient seated on toilet attempting to take catheter bag out of her pantbleg. She stated "You need to take this thing out, I don't like it". Nurse explained purpose of catheter and patient continued to pull on catheter at catheter securing device on leg. Nurse assisted patient out of bathroom and into a chair in her room. Patient had been ambulating without her walker. Patient reminded to use walker as that is the safest way to walk. Patient has catheter for urinary retention. Voiding trial was tried but patient still had >350ml retained after voiding. Catheter inserted last night.
[2020-05-28] MEDS: MAGNESIUM HYDROXIDE 2,400 MG/30 ML ORAL.SUSP. PO PRN (09:25)
--- NOTE | 2020-05-28 10:00 | NUR ---
ACTIVITY THERAPY ASSESSMENT completed based on notes, observation, and interview. Pt was sitting in a chair in her room. Pt was pleasant, calm, and controlled during time of assessment. Pt was pleasantly confused and unable to explain activities she enjoyed. AT asked this/ that question and pt said she liked watching TV, reading, and coloring. Per notes pt also enjoys adventism faith services, sewing, and embroidery. Pt was unaware of her current location. When AT asked if she knew she was in a hospital she said yes. AT asked pt if she knew why she was here and she said because she was confused and had anxiety. Pt said she could see and hear okay but pt appeared to be KASAAN. SECURITY GUARD brought in activities for pt and pt seemed interested. Pt was pleasantly confused and disoriented. AT asked if she went on family vacations with her family and she said that the did. AT asked pt if she was feeling stressed and she said she was but was unable to identify why. AT had to repeat many questions for pt as she appeared to be KASAAN and needed ample time to process questions. AT asked pt where she came from before here and pt said that she lives on her own. Per notes pt lives with her daughter. Initial goal is aimed to increase time management and socialization. Pt will participate in at least two individual Activity Therapy sessions per week.
--- NOTE | 2020-05-28 10:00 | NUR ---
Patient has not had a bowel movement since 05/22 but has had several "smears" according to staff. Patient has firm abdomen, denies pain and has hypoactive bowel sounds. She stated she "doesn't feel constipated". PRN MOM give for constipation per order. Will continue to monitor.
--- NOTE | 2020-05-28 10:58 | NUR ---
Pt dtr, Sara, participated in tx team via phone. Pt is currently eating less than 50% and sleeping up to 5 hours a night. Pt is calm and pleasant;however, exhibits increased confusion throughout the night. Pt does appear to be mostly active on the unit and was caught this morning attempting to pull out her catheter; which was placed yesterday as pt had 350ML and not able to urinate on her own. Pt does have a D-dimer of 4.6 in which nursing will discuss this concern with the hospitalist. Pt is currently on Remeron, Zyprexa and Trazodone. Pt will continue to be assessed to determine which medications will be more beneficial for pt during her stay. [facility] is the end of next week or the early part of the week after. Pt dtr would like to have pt at home versus the long-term. SW will set up services through [facility] as they have a psychiatric nurse and can provide further home health care.
--- NOTE | 2020-05-28 11:18 | NUR ---
Patient is calm and lying in her bed. She was cooperative with PT/OT and walked with them in the hallway. Patient showered, staff provided supervision only but assisted with marilin-care r/t talavera. Patient cooperative with staff and med compliant. Patient has not demonstrated any agitation or aggression this shift.
[2020-05-28 15:30] VITALS: BP 126/94
[2020-05-28 19:46] LABS: THYROID STIM HORMONE (TSH) 1.577 uIU/mL (0.358-3.740)
[2020-05-28] MEDS: MIRTAZAPINE 7.5 MG TABLET. PO SCH (21:14)
[2020-05-28] MEDS: LACTOBACILLUS RHAMNOSUS GG 1 CAPSULE. PO SCH (21:15)
--- NOTE | 2020-05-28 21:46 | PDOC ---
Exam Note: [place] Note: Please also refer to the separate dictated note~for this date of service dictated separately.~Patient seen individually. Discussed the patient with Nursing staff reviewed the chart.~Reviewed interim history and current functioning. Reviewed vital signs,~Labs/ Radiology~and current medications noted below. Continue current treatment with the changes noted in the dictated addendum note Assessment: Vital Signs/I&O: Vital Signs Date Time Temp Pulse Resp B/P (MAP) Pulse Ox O2 Delivery O2 Flow Rate FiO2 05/28/20 21:14 102 126/94 05/28/20 15:30 98.1 16 97 Room Air I & O 05/27/20 05/27/20 05/28/20 15:00 23:00 07:00 Intake Total 120 ml 480 ml Output Total 450 ml Balance 120 ml 480 ml -450 ml Labs: Laboratory Tests Test 05/27/20 23:44 Urine Collection Type U cath Urine Color Yellow Urine Clarity Hazy Urine pH 5.5 Urine Specific [place] >=1.030 Urine Protein Neg (NEG-TRACE) Urine Glucose (UA) 100 mg/dL (NEG) Urine Ketones (Stick) 15 mg/dL (NEG) Urine Blood Neg (NEG) Urine Nitrite Neg (NEG) Urine Bilirubin Neg (NEG) Urine Urobilinogen Dipstick 0.2 mg/dL (0.2 mg/dL) Urine Leukocyte Esterase Neg (NEG) Urine RBC 0 /HPF (0-2) Urine WBC Occ /HPF (0-4) Urine Squamous Epithelial Cells Occ /LPF Urine Bacteria 0 /HPF (0-FEW) Urine Yeast Present /HPF Current Medications: Meds: Current Medications Medications (Trade) Dose Ordered Sig/Barbara Route PRN Reason Start Time Stop Time Status Last Admin Dose Admin Olanzapine (ZyPREXA) 7.5 mg DAILY PO 05/28/20 09:00 05/28/20 09:11 Aspirin (Aspirin Chewable) 81 mg DAILYWBKFT PO 05/28/20 08:00 05/28/20 09:11 Pantoprazole Sodium (Protonix) 40 mg DAILYAC PO 05/28/20 07:30 05/28/20 09:11 Lactobacillus Rhamnosus (Culturelle) 1 cap BID PO 05/28/20 21:00 05/28/20 21:15 I have reviewed the current psychotropics carefully including drug interactions. Risk benefit ratio favors no change other than as noted in my dictated progress note. 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
--- NOTE | 2020-05-29 04:13 | NUR ---
Nursing Note The patient was located in her room for her assessment and medication pass. The patient was cooperative with her assessment and medications. The patient requested her medication floated in apple sauce. The patient required teaching regarding her catheter. The patient was found on several occasions pulling at her catheter but after education the patient refrained from pulling on her catheter again. The patient is currently sleeping in her room.
[2020-05-29] MEDS: MAGNESIUM HYDROXIDE 2,400 MG/30 ML ORAL.SUSP. PO PRN (05:30)
[2020-05-29 06:25] VITALS: BP 110/75
--- NOTE | 2020-05-29 06:51 | PDOC ---
Exam Note: [place] Note: This note is a late entry for 05/28/2020 covers elements not covered in my initial note. Subjective: The patient was reviewed on telehealth rounds in the morning of 05/28/2020 with treatment team with Laron, social service staff, Renita OAKLEY, and Darby Activity therapy. Discussed with nursing staff, reviewed the chart. The patient daughter Sara attended the treatment team meeting. We had a lengthy discussion with the patients diagnoses, prognosis, medication changes and daughter desires to have her home once she is stabilized rather than at nursing facility. She may need home health services for that. Daughter lives in [place]. The patients sleeping average is 7-3/4 hours. Previous night she had some urinary retention of 300 mL. She remains on pureed diet due to history of esophageal dilatation. She takes her medications crushed. She is less agitated, less confused. Review of Systems: No CV, , pulmonary, eye system symptoms on review. Ambulation impaired. Mental Status Exam: Insight and judgment, recent and remote memory, attention a nd concentration, fund of knowledge is poor consistent with her diagnoses. Laboratory Data: Reviewed. Impression: Major neurocognitive disorder Alzheimer, vascular with delusion, depression, behavioral disturbance. Anxiety disorder unspecified. Impulse control disorder unspecified. Plan: No change from initial note. Adjust psychotropics further as clinically indicated. Assessment: Vital Signs/I&O: Vital Signs Date Time Temp Pulse Resp B/P (MAP) Pulse Ox O2 Delivery O2 Flow Rate FiO2 05/29/20 06:25 98.1 67 14 110/75 (87) 97 05/28/20 15:30 Room Air I & O 05/28/20 05/28/20 05/29/20 15:00 23:00 07:00 Intake Total 436 ml 200 ml Output Total 750 ml Balance -314 ml 200 ml Current Medications: Meds: Current Medications Medications (Trade) Dose Ordered Sig/Barbara Route PRN Reason Start Time Stop Time Status Last Admin Dose Admin Olanzapine (ZyPREXA) 7.5 mg DAILY PO 05/28/20 09:00 05/28/20 09:11 Aspirin (Aspirin Chewable) 81 mg DAILYWBKFT PO 05/28/20 08:00 05/28/20 09:11 Pantoprazole Sodium (Protonix) 40 mg DAILYAC PO 05/28/20 07:30 05/28/20 09:11 Lactobacillus Rhamnosus (Culturelle) 1 cap BID PO 05/28/20 21:00 05/28/20 21:15 I have reviewed the current psychotropics carefully including drug interactions. Risk benefit ratio favors no change other than as noted in my dictated progress note. 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
[2020-05-29] MEDS: AMOXICILLIN/K CLAV 875/125MG TABLET. PO SCH ×2 (07:43→20:16)
[2020-05-29] MEDS: METOPROLOL TART IMMED RELEASE 25 MG TABLET. PO SCH ×2 (07:43→20:16)
[2020-05-29] MEDS: OLANZapine 7.5 MG TABLET PO SCH (07:43)
[2020-05-29] MEDS: LACTOBACILLUS RHAMNOSUS GG 1 CAPSULE. PO SCH ×2 (07:44→20:14)
[2020-05-29] MEDS: PANTOPRAZOLE 40 MG TABLET. PO SCH (07:44)
[2020-05-29] MEDS: ASPIRIN CHEWABLE 81 MG TABLET. PO SCH (07:44)
[2020-05-29] MEDS ORDERED: BISACODYL 10 MG SUPP.RECT PR PRN (08:00)
--- NOTE | 2020-05-29 09:46 | HP ---
ADMIT DATE: 05/27/2020 PSYCHIATRIC ADMISSION HISTORY/EVALUATION This late entry date of service entirely covers the elements not covered in my initial note. IDENTIFYING DATA: The patient is an 89-year-old female who transferred to us from the intermediate unit where she was admitted to be screened for COVID before transition to the [facility] after she was referred for inpatient psychiatric stabilization ____ and disruptive behavior ____ daughter, Debbi. Her confusion had been worsening with UTI and she was totally unmanageable resulting in this referral. Again, she stayed in the skilled unit for determining of ____ status and transitions to us from 05/27. CHIEF COMPLAINT: "I'm better." HISTORY OF PRESENT ILLNESS: The patient has a history of dementia of vascular type ____, but recently getting more agitated, labile, psychotic, paranoid with sleep and appetite changes. No clear history of bipolar disorder. PAST MEDICAL HISTORY: Positive for osteoarthritis, UTI, atrial fibrillation, hypertension, GERD, urinary retention, status post pneumonia. CODE STATUS: DNR. ALLERGIES: Negative. DIET: Pureed, takes medications crushed, ambulates with a walker. CURRENT PSYCHOTROPICS: MRAD was reviewed. REVIEW OF SYSTEMS: Ambulation impaired with walker. No CV, , pulmonary, eye, ENT system symptoms on review. MENTAL STATUS EXAMINATION: The patient was seen individually on 05/27/2020. She is oriented to herself. Insight, judgment, recent and remote memory, attention, concentration, fund of knowledge poor, consistent with her diagnoses. IMPRESSION: Major neurocognitive disorder, ____ vascular with delusion, depression, behavioral disturbance; anxiety disorder, unspecified; impulse control disorder, unspecified; status post urinary tract infection, status post pneumonia. Rest unchanged as above. PLAN: Admit to Ger[facility]ychiatry Unit at [facility]. I will see the patient daily individually from a psychiatric standpoint. Medical followup with Dr. Shipman/Dr. Foster. Continue the patient on her current psychotropics. Observe baseline. Make further adjustments as clinically indicated. Estimated length of stay 10-12 days. DISPOSITION PLANS: Daughter would like her back home after she has been stabilized. FRANK NYE MD DR: LIZZETTE/eva JOB#: [id number] / [id number]
[2020-05-29 15:01] VITALS: BP 124/85
--- NOTE | 2020-05-29 16:25 | NUR ---
Pt impulsive in am. out of bed several times. Pulling on catheter and almost tripping over tubing. Pt Up to BR several times. Has been constipated but has finally had several large BMs. Out for shower. Tolerated well. Compliant with cares. Told staff she did not want to play the game anymore where they were blind folded. Pt reassured we would not be playing that game.
[2020-05-29] MEDS: traZODone 100 MG TABLET. PO PRN (20:15)
[2020-05-29] MEDS: MIRTAZAPINE 7.5 MG TABLET. PO SCH (20:15)
[2020-05-29] MEDS: POTASSIUM CHLORIDE 20 MEQ TABLET.ER. PO SCH (20:16)
--- NOTE | 2020-05-29 22:39 | PDOC ---
Exam Note: [place] Note: Please also refer to the separate dictated note~for this date of service dictated separately.~Patient seen individually. Discussed the patient with Nursing staff reviewed the chart.~Reviewed interim history and current functioning. Reviewed vital signs,~Labs/ Radiology~and current medications noted below. Continue current treatment with the changes noted in the dictated addendum note Assessment: Vital Signs/I&O: Vital Signs Date Time Temp Pulse Resp B/P (MAP) Pulse Ox O2 Delivery O2 Flow Rate FiO2 05/29/20 20:16 88 124/85 05/29/20 15:01 96.9 16 95 Room Air I & O 05/28/20 05/28/20 05/29/20 15:00 23:00 07:00 Intake Total 436 ml 200 ml Output Total 750 ml Balance -314 ml 200 ml Current Medications: Meds: Current Medications Medications (Trade) Dose Ordered Sig/Barbara Route PRN Reason Start Time Stop Time Status Last Admin Dose Admin Potassium Chloride (Klor-Con) 20 meq BID PO 05/29/20 21:00 06/03/20 20:59 05/29/20 20:16 I have reviewed the current psychotropics carefully including drug interactions. Risk benefit ratio favors no change other than as noted in my dictated progress note. 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
[2020-05-30] MEDS: traZODone 100 MG TABLET. PO PRN ×2 (00:11→20:40)
--- NOTE | 2020-05-30 01:32 | NUR ---
This shift pt has been confused and only able to give name and . She took her meds crushed in pudding without difficulty. She has been sleeping off and on and at times gets OOB and walks around the room, sometimes looking for family. PRN trazodone with repeat dose have been given and she is now quiet in bed sleeping at times. She has been pleasant and cooperative tonight with no agitation or aggression.
[2020-05-30 05:52] VITALS: BP 158/98
--- NOTE | 2020-05-30 06:33 | PDOC ---
Exam Note: [place] Note: This note is a late entry for 05/29/2020 covers elements not covered in my initial note. Subjective: The patient was reviewed on telehealth rounds in the evening of 05/29/2020 with Letty OAKLEY. Discussed with nursing staff, reviewed the chart. Overall, the patient has been restless but she had fecal impaction which was removed and doing much better with that. She also had some urinary retention but probably consequent to the fecal impaction. We will defer to Dr. Foster and Dr. Shipman. She has been confused, putting her diaper in the sink trying to wash it. Valles was placed due to urinary retention. Review of Systems: No CV, , pulmonary, eye system symptoms on review. Ambulation impaired with walker. Mental Status Exam: The patient is oriented to herself. Insight and judgment, recent and remote memory, attention and concentration, fund of knowledge is poor consistent with her diagnoses. Laboratory Data: Reviewed. Impression: Major neurocognitive disorder Alzheimer, vascular with delusion, depression, behavioral disturbance. Anxiety disorder unspecified. Impulse control disorder unspecified. Plan: No change from initial note. Start Colace 100 mg twice a day. Maintain rest of the psychotropics unchanged. Assessment: Vital Signs/I&O: Vital Signs Date Time Temp Pulse Resp B/P (MAP) Pulse Ox O2 Delivery O2 Flow Rate FiO2 05/30/20 05:52 97.4 100 18 158/98 (118) 95 05/29/20 15:01 Room Air I & O 05/29/20 05/29/20 05/30/20 15:00 23:00 07:00 Intake Total 400 ml 250 ml Output Total 100 ml 200 ml Balance 300 ml 50 ml Current Medications: Meds: Current Medications Medications (Trade) Dose Ordered Sig/Barbara Route PRN Reason Start Time Stop Time Status Last Admin Dose Admin Potassium Chloride (Klor-Con) 20 meq BID PO 05/29/20 21:00 06/03/20 20:59 05/29/20 20:16 I have reviewed the current psychotropics carefully including drug interactions. Risk benefit ratio favors no change other than as noted in my dictated progress note. 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
[2020-05-30] MEDS: ASPIRIN CHEWABLE 81 MG TABLET. PO SCH (08:21)
[2020-05-30] MEDS: POTASSIUM CHLORIDE 20 MEQ TABLET.ER. PO SCH ×2 (08:21→20:38)
[2020-05-30] MEDS: LACTOBACILLUS RHAMNOSUS GG 1 CAPSULE. PO SCH ×2 (08:22→20:38)
[2020-05-30] MEDS: METOPROLOL TART IMMED RELEASE 25 MG TABLET. PO SCH ×2 (08:22→20:39)
[2020-05-30] MEDS: OLANZapine 7.5 MG TABLET PO SCH (08:22)
[2020-05-30] MEDS: AMOXICILLIN/K CLAV 875/125MG TABLET. PO SCH ×2 (08:22→20:38)
[2020-05-30] MEDS: PANTOPRAZOLE 40 MG TABLET. PO SCH (08:22)
[2020-05-30 15:48] VITALS: BP 137/82
--- NOTE | 2020-05-30 18:29 | NUR ---
Pt up adl in room. Has been redirected to use walker and wear mask when leaving room. Valles was replaced in am as pt has pulled out. Onsie placed so pt could not get at tubing. Has been pleasantly confused. Compliant with meds and cares.
[2020-05-30] MEDS: MIRTAZAPINE 15 MG TABLET PO SCH (20:41)
--- NOTE | 2020-05-30 21:53 | PDOC ---
Exam Note: [place] Note: Please also refer to the separate dictated note~for this date of service dictated separately.~Patient seen individually. Discussed the patient with Nursing staff reviewed the chart.~Reviewed interim history and current functioning. Reviewed vital signs,~Labs/ Radiology~and current medications noted below. Continue current treatment with the changes noted in the dictated addendum note Assessment: Vital Signs/I&O: Vital Signs Date Time Temp Pulse Resp B/P (MAP) Pulse Ox O2 Delivery O2 Flow Rate FiO2 05/30/20 20:39 72 137/82 05/30/20 15:48 99.5 18 96 05/29/20 15:01 Room Air I & O 05/29/20 05/29/20 05/30/20 15:00 23:00 07:00 Intake Total 400 ml 250 ml Output Total 100 ml 200 ml Balance 300 ml 50 ml Current Medications: Meds: Current Medications Medications (Trade) Dose Ordered Sig/Barbara Route PRN Reason Start Time Stop Time Status Last Admin Dose Admin Mirtazapine (Remeron) 15 mg QHS PO 05/30/20 21:00 05/30/20 20:41 I have reviewed the current psychotropics carefully including drug interactions. Risk benefit ratio favors no change other than as noted in my dictated progress note. 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
--- NOTE | 2020-05-30 23:59 | NUR ---
Patient wandering in hallway on assumption of care. She is very disorganized, restless. Will not keep mask on when outside of her room despite frequent cueing. Using her walker inappropriately, multiple attempts at redirection by several staff members was unsuccessful. She was compliant with medications given crushed in chocolate ice cream, asking "Are those my meds?" when this RN brought it in to her. Patient continued to ambulate with the walker in an unsafe manner and walk out of her room without her mask on. PRN Ativan 0.25mg given at 2200, with negligible effect. Patient escorted to the [facility] at that time for safety. She began walking back and forth, sometimes without her walker. Door checking. She was observed having a conversation with someone not there, gesturing and making facial expressions. Also leaning over to pick up and delivery driver unseen things on the floor. Will continue to monitor.
--- NOTE | 2020-05-31 01:21 | NUR ---
Upon initial interaction with pt after introducing myself as tennis player, pt did not respond. Waited for 20 seconds and after pt did not respond I stated that I would come back by with some snacks after a while. Pt later on requested a snack and I provided icecream. Pt was ambulating in room with walker but not using walker appropriately; pt was walking with left side of walker in front of self and right side of walker behind self. Attempted to educate pt on proper use of walker but pt did not respond and continued to wander in room with walker. Notified RN While rounding later in the evening, pt was observed in room wandering and looking from ceiling to [place] to floor in rapid succession. I asked pt if they needed assistance and pt responded " do you know where my car is" I informed pt. that they were in the hospital and would be staying the night. Pt continued wandering in [place] several times throughout the evening before being walked over to [facility] as pt was not wearing mask outside of room despite several reminders to do so. Pt was cooperative with temperature and oxygen saturation assessment but [facility] to [facility]. Pt was later led to bed by RN.
[2020-05-31] MEDS: traZODone 100 MG TABLET. PO PRN (01:29)
--- NOTE | 2020-05-31 02:00 | NUR ---
At around 0030, patient appeared to be slowing down some, spending longer periods of time sitting in the chair instead of pacing back and forth. This RN brought her to her room and got her into bed. Pressure alarm set for safety. Patient remained in room for 20 minutes, then began repeatedly trying to climb out of bed . Attempted to redirect patient to stay in bed several times, without success. She was assisted back to the [facility] and given repeat Trazadone at 0130. Will continue to monitor.
--- NOTE | 2020-05-31 03:47 | NUR ---
Patient in [facility]. At 0300, patient's onesie appeared to be wet. Patient brought into quiet room bathroom to be cleaned up and changed. Smear of BM in brief. Once patient changed into dry brief and onesie, she was escorted back to her room. Assisted into bed and pressure alarm put on for safety. Patient appears to be sleeping comfortably at present time. Will continue to monitor.
[2020-05-31 05:14] LABS: BILIRUBIN,URINE NEG (NEG); CLARITY,URINE CLEAR; COLOR,URINE STRAW; GLUCOSE,URINE 100 mg/dL (NEG)
[2020-05-31 05:15] LABS: BACTERIA,URINE FEW /HPF (0-FEW); NITRITE,URINE NEG (NEG); SQUAMOUS EPITHELIAL CELL,UR FEW /LPF; UROBILINOGEN,URINE 0.2 mg/dL (0.2 mg/dL); WBC,URINE OCC /HPF (0-4)
[2020-05-31 05:54] VITALS: BP 121/90
--- NOTE | 2020-05-31 06:53 | PDOC ---
Exam Note: [place] Note: This note is a late entry for 05/30/2020 covers elements not covered in my initial note. Subjective: The patient was reviewed on telehealth rounds in the evening of 05/30/2020 with Letty OAKLEY. Discussed with nursing staff, reviewed the chart. She became agitated, pulled out her catheter earlier in the day. She remained in onesie. Nursing staff had called me as an emergency earlier due to her agitation and we did add Zyprexa p.r.n. She slept poorly last night. We will increase Remeron from 7.5 mg h.s. to 15 mg h.s. Review of Systems: No CV, , pulmonary, eye, ENT system symptoms on review. Reliability poor. Mental Status Exam: The patient is oriented to herself. Insight and judgment, recent and remote memory, attention and concentration, fund of knowledge is poor consistent with her diagnoses. Laboratory Data: Reviewed. Impression: Major neurocognitive disorder Alzheimer, vascular with delusion, depression, behavioral disturbance. Anxiety disorder unspecified. Impulse control disorder unspecified. Plan: No change from initial note. Assessment: Vital Signs/I&O: Vital Signs Date Time Temp Pulse Resp B/P (MAP) Pulse Ox O2 Delivery O2 Flow Rate FiO2 05/31/20 05:54 98.2 84 18 121/90 (100) 94 05/29/20 15:01 Room Air I & O 05/30/20 05/30/20 05/31/20 15:00 23:00 07:00 Intake Total 720 ml 240 ml 420 ml Output Total 600 ml 320 ml Balance 720 ml -360 ml 100 ml Labs: Laboratory Tests Test 05/31/20 04:45 Urine Collection Type Unknown Urine Color Straw Urine Clarity Clear Urine pH 7.5 Urine Specific [place] 1.020 Urine Protein Trace (NEG-TRACE) Urine Glucose (UA) 100 mg/dL (NEG) Urine Ketones (Stick) Neg mg/dL (NEG) Urine Blood Trace (NEG) Urine Nitrite Neg (NEG) Urine Bilirubin Neg (NEG) Urine Urobilinogen Dipstick 0.2 mg/dL (0.2 mg/dL) Urine Leukocyte Esterase Neg (NEG) Urine RBC 1-2 /HPF (0-2) Urine WBC Occ /HPF (0-4) Urine Squamous Epithelial Cells Few /LPF Urine Transitional Epithelial Cells Occ /LPF Urine Renal Epithelial Cells Occ /LPF Urine Calcium Phosphate Crystals Present /HPF Urine Bacteria Few /HPF (0-FEW) Urine Mucus Slight /LPF Current Medications: Meds: Current Medications Medications (Trade) Dose Ordered Sig/Barbara Route PRN Reason Start Time Stop Time Status Last Admin Dose Admin Mirtazapine (Remeron) 15 mg QHS PO 05/30/20 21:00 05/30/20 20:41 I have reviewed the current psychotropics carefully including drug interactions. Risk benefit ratio favors no change other than as noted in my dictated progress note. 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
[2020-05-31] MEDS: LACTOBACILLUS RHAMNOSUS GG 1 CAPSULE. PO SCH ×2 (08:20→20:18)
[2020-05-31] MEDS: PANTOPRAZOLE 40 MG TABLET. PO SCH (08:20)
[2020-05-31] MEDS: OLANZapine 7.5 MG TABLET PO SCH (08:21)
[2020-05-31] MEDS: AMOXICILLIN/K CLAV 875/125MG TABLET. PO SCH ×2 (08:21→20:17)
[2020-05-31] MEDS: POTASSIUM CHLORIDE 20 MEQ TABLET.ER. PO SCH ×2 (08:21→20:19)
[2020-05-31] MEDS: METOPROLOL TART IMMED RELEASE 25 MG TABLET. PO SCH ×2 (08:21→20:19)
[2020-05-31] MEDS: ASPIRIN CHEWABLE 81 MG TABLET. PO SCH (08:21)
[2020-05-31] MEDS: POLYETHYLENE GLYCOL 3350 17 GM PACKET. PO SCH (08:24)
[2020-05-31 16:25] VITALS: BP 104/59
--- NOTE | 2020-05-31 16:28 | NUR ---
Pt has been up wandering today. Restless and repeatedly pulling at catheter. Has been directable. Has been in [place] several times as pt does not keep mask on. Has been compliant with meds and cares.
[2020-05-31] MEDS ORDERED: MELATONIN 3 MG TABLET PO PRN (18:30)
[2020-05-31] MEDS: MIRTAZAPINE 15 MG TABLET PO SCH (20:18)
--- NOTE | 2020-05-31 22:10 | PDOC ---
Exam Note: [place] Note: Please also refer to the separate dictated note~for this date of service dictated separately.~Patient seen individually. Discussed the patient with Nursing staff reviewed the chart.~Reviewed interim history and current functioning. Reviewed vital signs,~Labs/ Radiology~and current medications noted below. Continue current treatment with the changes noted in the dictated addendum note Assessment: Vital Signs/I&O: Vital Signs Date Time Temp Pulse Resp B/P (MAP) Pulse Ox O2 Delivery O2 Flow Rate FiO2 05/31/20 20:19 61 104/59 05/31/20 16:25 98.5 18 97 05/29/20 15:01 Room Air I & O 05/30/20 05/30/20 05/31/20 15:00 23:00 07:00 Intake Total 720 ml 240 ml 420 ml Output Total 600 ml 320 ml Balance 720 ml -360 ml 100 ml Labs: Laboratory Tests Test 05/31/20 04:45 Urine Collection Type Unknown Urine Color Straw Urine Clarity Clear Urine pH 7.5 Urine Specific [place] 1.020 Urine Protein Trace (NEG-TRACE) Urine Glucose (UA) 100 mg/dL (NEG) Urine Ketones (Stick) Neg mg/dL (NEG) Urine Blood Trace (NEG) Urine Nitrite Neg (NEG) Urine Bilirubin Neg (NEG) Urine Urobilinogen Dipstick 0.2 mg/dL (0.2 mg/dL) Urine Leukocyte Esterase Neg (NEG) Urine RBC 1-2 /HPF (0-2) Urine WBC Occ /HPF (0-4) Urine Squamous Epithelial Cells Few /LPF Urine Transitional Epithelial Cells Occ /LPF Urine Renal Epithelial Cells Occ /LPF Urine Calcium Phosphate Crystals Present /HPF Urine Bacteria Few /HPF (0-FEW) Urine Mucus Slight /LPF Current Medications: Meds: Current Medications Medications (Trade) Dose Ordered Sig/Barbara Route PRN Reason Start Time Stop Time Status Last Admin Dose Admin Polyethylene Glycol (miraLAX) 17 gm DAILY PO 05/31/20 09:00 05/31/20 08:24 I have reviewed the current psychotropics carefully including drug interactions. Risk benefit ratio favors no change other than as noted in my dictated progress note. 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
--- NOTE | 2020-05-31 23:59 | NUR ---
Patient is sitting quietly in the [facility] on assumption of care. She is disorganized, flat. Fiddling with her onesie attempting to get at her talavera catheter. Having animated conversations with unseen people. Sat on the floor for a short amount of time, then got onto her knees as if to get up. She became defensive when this RN went in and offered to help her, stating "Get the hell away from you [id number]." PRN Wilfredo given to patient with her HS meds to prepare for her to be showered. Patient was cooperative with shower and HS care. Assisted back into the [facility] and was laid down in the quiet room on a mattress. She is sleeping comfortably at present time. Will continue to monitor.
[2020-06-01 06:27] VITALS: BP 119/78
--- NOTE | 2020-06-01 06:49 | PDOC ---
Exam Note: [place] Note: This note is a late entry for 05/31/2020 covers elements not covered in my initial note. Subjective: The patient was reviewed on telehealth rounds in the evening of 05/31/2020 with Stefano OAKLEY. Discussed with nursing staff, reviewed the chart. Per Letty OAKLEY, the patient did not sleep at all last night. She has been up and about all day but this evening she is more tired. Review of Systems: Positive for tiredness. No CV, , pulmonary, eye, ENT system symptoms on review. Mental Status Exam: The patient is oriented to herself. Insight and judgment, recent and remote memory, attention and concentration, fund of knowledge is poor consistent with her diagnoses. Laboratory Data: Reviewed. Impression: Major neurocognitive disorder Alzheimer, vascular with delusion, depression, behavioral disturbance. Anxiety disorder unspecified. Impulse control disorder unspecified. Plan: No change from initial note. We will add melatonin 3 mg h.s. to help with insomnia. Maintain Zyprexa 7.5 mg daily, Remeron 15 mg h.s., trazodone h.s. p.r.n. though she did not receive it last night. Continue rest unchanged. Assessment: Vital Signs/I&O: Vital Signs Date Time Temp Pulse Resp B/P (MAP) Pulse Ox O2 Delivery O2 Flow Rate FiO2 06/01/20 06:27 98.4 62 16 119/78 (92) 96 05/29/20 15:01 Room Air I & O 05/31/20 05/31/20 06/01/20 15:00 23:00 07:00 Intake Total 340 ml Output Total 1200 ml Balance 340 ml -1200 ml Current Medications: Meds: Current Medications Medications (Trade) Dose Ordered Sig/Barbara Route PRN Reason Start Time Stop Time Status Last Admin Dose Admin Polyethylene Glycol (miraLAX) 17 gm DAILY PO 05/31/20 09:00 05/31/20 08:24 I have reviewed the current psychotropics carefully including drug interactions. Risk benefit ratio favors no change other than as noted in my dictated progress note. 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
[2020-06-01 07:32] LABS: CALCIUM 8.5 mg/dL (8.5-10.1); CREATININE 0.9 mg/dL (0.6-1.0); GFR 59.1; POTASSIUM 3.9 mmol/L (3.5-5.1)
[2020-06-01] MEDS: AMOXICILLIN/K CLAV 875/125MG TABLET. PO SCH ×3 (08:39→21:00)
[2020-06-01] MEDS: POLYETHYLENE GLYCOL 3350 17 GM PACKET. PO SCH (08:39)
[2020-06-01] MEDS: ASPIRIN CHEWABLE 81 MG TABLET. PO SCH (08:39)
[2020-06-01] MEDS: METOPROLOL TART IMMED RELEASE 25 MG TABLET. PO SCH ×2 (08:40→20:10)
[2020-06-01] MEDS: PANTOPRAZOLE 40 MG TABLET. PO SCH (08:40)
[2020-06-01] MEDS: OLANZapine 7.5 MG TABLET PO SCH (08:40)
[2020-06-01] MEDS: LACTOBACILLUS RHAMNOSUS GG 1 CAPSULE. PO SCH ×3 (08:40→21:00)
[2020-06-01] MEDS: POTASSIUM CHLORIDE 20 MEQ TABLET.ER. PO SCH ×3 (08:40→21:00)
--- NOTE | 2020-06-01 12:57 | NUR ---
Nursing note: Pt was asleep all morning. At times pt was observed walking around in her room and when this nurse went in to give pt her meds, pt quickly got back in bed and acted as if she were asleep. Pt was awakened for lunch, which is when she received her AM meds crushed in pudding. Pt continued to ignore this nurse throughout interaction, refusing to answer questions. She is currently up and finishing her lunch. Will continue to monitor.
[2020-06-01 15:49] VITALS: BP 107/63
--- NOTE | 2020-06-01 18:40 | NUR ---
Nursing note: Pt assisted to bathroom where she proceeded to urinate. Post void bladder scan showed 0 mLs retained.
[2020-06-01 19:34] VITALS: BP 108/71
[2020-06-01] MEDS: MIRTAZAPINE 15 MG TABLET PO SCH ×2 (20:10→21:00)
--- NOTE | 2020-06-01 22:00 | PDOC ---
Exam Note: [place] Note: Please also refer to the separate dictated note~for this date of service dictated separately.~Patient seen individually. Discussed the patient with Nursing staff reviewed the chart.~Reviewed interim history and current functioning. Reviewed vital signs,~Labs/ Radiology~and current medications noted below. Continue current treatment with the changes noted in the dictated addendum note Assessment: Vital Signs/I&O: Vital Signs Date Time Temp Pulse Resp B/P (MAP) Pulse Ox O2 Delivery O2 Flow Rate FiO2 06/01/20 20:10 51 108/71 06/01/20 15:49 98.1 18 96 05/29/20 15:01 Room Air I & O 05/31/20 05/31/20 06/01/20 15:00 23:00 07:00 Intake Total 340 ml Output Total 1200 ml Balance 340 ml -1200 ml Labs: Laboratory Tests Test 06/01/20 06:34 Sodium Level 137 mmol/L (136-145) Potassium Level 3.9 mmol/L (3.5-5.1) Chloride Level 102 mmol/L (98-107) Carbon Dioxide Level 26 mmol/L (21-32) Anion Gap 9 (6-14) Blood Urea Nitrogen 20 mg/dL (7-20) Creatinine 0.9 mg/dL (0.6-1.0) Estimated GFR (Cockcroft-Gault) 59.1 Glucose Level 74 mg/dL (70-99) Calcium Level 8.5 mg/dL (8.5-10.1) Current Medications: I have reviewed the current psychotropics carefully including drug interactions. Risk benefit ratio favors no change other than as noted in my dictated progress note. 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
--- NOTE | 2020-06-01 23:59 | NUR ---
Patient is asleep in bed on assumption of care. She arouses to name, but doesn't respond to questions. HS meds held d/t drowsiness. Vital signs are WNL for patient. She appears to be sleeping comfortably at present time. Will continue to monitor.
[2020-06-02 06:30] VITALS: BP 125/85
[2020-06-02] MEDS: PANTOPRAZOLE 40 MG TABLET. PO SCH ×2 (07:30→08:30)
[2020-06-02] MEDS: ASPIRIN CHEWABLE 81 MG TABLET. PO SCH ×2 (08:00→08:31)
[2020-06-02] MEDS: POLYETHYLENE GLYCOL 3350 17 GM PACKET. PO SCH ×2 (08:29→09:00)
[2020-06-02] MEDS: LACTOBACILLUS RHAMNOSUS GG 1 CAPSULE. PO SCH ×4 (08:30→21:00)
[2020-06-02] MEDS: AMOXICILLIN/K CLAV 875/125MG TABLET. PO SCH ×2 (08:31→09:00)
[2020-06-02] MEDS: METOPROLOL TART IMMED RELEASE 25 MG TABLET. PO SCH ×4 (08:31→21:00)
[2020-06-02] MEDS: POTASSIUM CHLORIDE 20 MEQ TABLET.ER. PO SCH ×4 (08:31→21:00)
--- NOTE | 2020-06-02 10:08 | NUR ---
Nursing note: Pt in secure hallway at shift change. She has been sitting in a chair with her eyes closed all morning, but fidgets with her food tray and clothes and occasionally has a smile on her face. Pt's meds were attempted to be given to her crushed in her pureed sausage, but held her mouth shut to refuse it. Pt continues to sit in the chair, ignoring staff. Will continue to monitor.
--- NOTE | 2020-06-02 15:50 | NUR ---
Patient has been ignoring staff for the majority of this shift, including refusing morning medications, any food, and any drinks offered. After lunch, a WATER PURIFIER was able to encourage patient to eat two vanilla puddings and then take a shower. Patient then laid down for a nap. Will continue to monitor and report to oncoming shift.
[2020-06-02 16:06] VITALS: BP 139/66
[2020-06-02] MEDS: traZODone 100 MG TABLET. PO PRN (20:07)
[2020-06-02] MEDS: MIRTAZAPINE 15 MG TABLET PO SCH (20:07)
--- NOTE | 2020-06-02 20:45 | NUR ---
Nursing Note: Location of Patient during Assessment: Pt withdrawn to room, lying in bed with eyes closed. Behaviors Mood and Affect this shift: Pt refuses to open her eyes or speak to staff when approached but is arousable to verbal and tactile stimuli. Medication Compliant: Pt refused HS medications, tightly pressing lips closed when attempting to administer her medications crushed in pudding. Assessment Compliant: Pt cooperative and compliant with assessment and VS. VS stable at this time. Response After Interventions: Pt lying in bed with eyes closed, resting comfortably at this time.
[2020-06-02] MEDS ORDERED: OLANZapine 5 MG TABLET PO SCH (21:00)
--- NOTE | 2020-06-02 21:45 | PDOC ---
Exam Note: [place] Note: Please also refer to the separate dictated note~for this date of service dictated separately.~Patient seen individually. Discussed the patient with Nursing staff reviewed the chart.~Reviewed interim history and current functioning. Reviewed vital signs,~Labs/ Radiology~and current medications noted below. Continue current treatment with the changes noted in the dictated addendum note Assessment: Vital Signs/I&O: Vital Signs Date Time Temp Pulse Resp B/P (MAP) Pulse Ox O2 Delivery O2 Flow Rate FiO2 06/02/20 16:06 97.6 67 19 139/66 (90) 98 05/29/20 15:01 Room Air I & O 06/01/20 06/01/20 06/02/20 15:00 23:00 07:00 Intake Total 80 ml 0 ml Balance 80 ml 0 ml Current Medications: I have reviewed the current psychotropics carefully including drug interactions. Risk benefit ratio favors no change other than as noted in my dictated progress note. 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
[2020-06-03 06:03] VITALS: BP 127/77
[2020-06-03 06:40] LABS: BASO # 0.1 x10^3/uL (0.0-0.2); BASO % 2 % (0-3); EOS % 1 % (0-3); HEMATOCRIT 33.5 % (36.0-47.0); LYMPH # 0.7 x10^3/uL (1.0-4.8); LYMPH % 13 % (24-48); MEAN CORPUSCULAR HEMOGLOBIN 30 pg (25-35); MEAN CORPUSCULAR HGB CONC 33 g/dL (31-37); MEAN CORPUSCULAR VOLUME 91 fL (79-100); MONO # 0.5 x10^3/uL (0.0-1.1); MONO % 9 % (0-9); NEUT % 75 % (31-73); PLATELET COUNT 305 x10^3/uL (140-400); RED BLOOD COUNT 3.66 x10^6/uL (3.50-5.40); RED CELL DISTRIBUTION WIDTH 14.2 % (11.5-14.5); WHITE BLOOD COUNT 5.4 x10^3/uL (4.0-11.0)
[2020-06-03 06:54] LABS: ALBUMIN 2.6 g/dL (3.4-5.0); ALBUMIN/GLOBULIN RATIO 0.8 (1.0-1.7); CALCIUM 8.5 mg/dL (8.5-10.1); CREATININE 0.8 mg/dL (0.6-1.0); GFR 67.7; POTASSIUM 4.2 mmol/L (3.5-5.1); TOTAL BILIRUBIN 0.6 mg/dL (0.2-1.0); TOTAL PROTEIN 5.8 g/dL (6.4-8.2)
--- NOTE | 2020-06-03 07:02 | PDOC ---
Exam Note: [place] Note: This note is a late entry for 06/01/2020 covers elements not covered in my initial note. Subjective: The patient was reviewed on telehealth rounds in the evening of 06/01/2020 with Ella OAKLEY. Discussed with nursing staff, reviewed the chart. She slept 7-3/4 hours previous night. She has been quite sedated, sleepy all day, questionably hallucinating previous night. We will reduce the Zyprexa from 7.5 mg in the morning down to 5 mg h.s., given her sedation. Review of Systems: No CV, , pulmonary, eye, ENT system symptoms on review. Mental Status Exam: The patient is oriented to herself. Insight and judgment, recent and remote memory, attention and concentration, fund of knowledge is poor consistent with her diagnoses. Laboratory Data: Reviewed. Impression: Major neurocognitive disorder Alzheimer, vascular with delusion, depression, behavioral disturbance. Anxiety disorder unspecified. Impulse control disorder unspecified. Plan: Change the Zyprexa as above. Continue rest unchanged. Assessment: Vital Signs/I&O: Vital Signs Date Time Temp Pulse Resp B/P (MAP) Pulse Ox O2 Delivery O2 Flow Rate FiO2 06/03/20 06:03 97.9 70 16 127/77 (94) 96 05/29/20 15:01 Room Air I & O 06/02/20 06/02/20 06/03/20 15:00 23:00 07:00 Intake Total 180 ml 0 ml Balance 180 ml 0 ml Labs: Laboratory Tests Test 06/03/20 06:26 White Blood Count 5.4 x10^3/uL (4.0-11.0) Red Blood Count 3.66 x10^6/uL (3.50-5.40) Hemoglobin 11.0 g/dL (12.0-15.5) L Hematocrit 33.5 % (36.0-47.0) L Mean Corpuscular Volume 91 fL (79-100) Mean Corpuscular Hemoglobin 30 pg (25-35) Mean Corpuscular Hemoglobin Concent 33 g/dL (31-37) Red Cell Distribution Width 14.2 % (11.5-14.5) Platelet Count 305 x10^3/uL (140-400) Neutrophils (%) (Auto) 75 % (31-73) H Lymphocytes (%) (Auto) 13 % (24-48) L Monocytes (%) (Auto) 9 % (0-9) Eosinophils (%) (Auto) 1 % (0-3) Basophils (%) (Auto) 2 % (0-3) Neutrophils # (Auto) 4.0 x10^3uL (1.8-7.7) Lymphocytes # (Auto) 0.7 x10^3/uL (1.0-4.8) L Monocytes # (Auto) 0.5 x10^3/uL (0.0-1.1) Eosinophils # (Auto) 0.0 x10^3/uL (0.0-0.7) Basophils # (Auto) 0.1 x10^3/uL (0.0-0.2) Current Medications: I have reviewed the current psychotropics carefully including drug interactions. Risk benefit ratio favors no change other than as noted in my dictated progress note. 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
--- NOTE | 2020-06-03 07:11 | PDOC ---
Exam Note: [place] Note: This note is a late entry for 06/02/2020 covers elements not covered in my initial note. Subjective: The patient was reviewed on telehealth rounds in the evening of 06/02/2020 with John OAKLEY. Discussed with nursing staff, reviewed the chart. The patient slept 7-3/4 hours previous night. She is refusing to eat or drink, quite sedated even on telehealth rounds in the evening, refusing to answer questions, ate nothing for lunch and dinner. We will check CBC, CMP in the morning. We will also go ahead and stop Remeron 15 mg h.s., Zyprexa 5 mg h.s. due to her sedation. Review of Systems: No CV, , pulmonary, eye, ENT system symptoms on review. Mental Status Exam: The patient is oriented to herself. She is not very verbally interactive, keeping her eyes closed. Insight and judgment, recent and remote memory, attention and concentration, fund of knowledge is poor consistent with her diagnoses. Laboratory Data: Reviewed. Impression: Major neurocognitive disorder Alzheimer, vascular with delusion, depression, behavioral disturbance. Anxiety disorder unspecified. Impulse control disorder unspecified. Plan: No change from initial note. Stop the patients Remeron and Zyprexa 5 mg h.s. due to her sedation. Continue rest unchanged. Adjust further as clinically indicated. Assessment: Vital Signs/I&O: Vital Signs Date Time Temp Pulse Resp B/P (MAP) Pulse Ox O2 Delivery O2 Flow Rate FiO2 06/03/20 06:03 97.9 70 16 127/77 (94) 96 05/29/20 15:01 Room Air I & O 06/02/20 06/02/20 06/03/20 15:00 23:00 07:00 Intake Total 180 ml 0 ml Balance 180 ml 0 ml Labs: Laboratory Tests Test 06/03/20 06:26 White Blood Count 5.4 x10^3/uL (4.0-11.0) Red Blood Count 3.66 x10^6/uL (3.50-5.40) Hemoglobin 11.0 g/dL (12.0-15.5) L Hematocrit 33.5 % (36.0-47.0) L Mean Corpuscular Volume 91 fL (79-100) Mean Corpuscular Hemoglobin 30 pg (25-35) Mean Corpuscular Hemoglobin Concent 33 g/dL (31-37) Red Cell Distribution Width 14.2 % (11.5-14.5) Platelet Count 305 x10^3/uL (140-400) Neutrophils (%) (Auto) 75 % (31-73) H Lymphocytes (%) (Auto) 13 % (24-48) L Monocytes (%) (Auto) 9 % (0-9) Eosinophils (%) (Auto) 1 % (0-3) Basophils (%) (Auto) 2 % (0-3) Neutrophils # (Auto) 4.0 x10^3uL (1.8-7.7) Lymphocytes # (Auto) 0.7 x10^3/uL (1.0-4.8) L Monocytes # (Auto) 0.5 x10^3/uL (0.0-1.1) Eosinophils # (Auto) 0.0 x10^3/uL (0.0-0.7) Basophils # (Auto) 0.1 x10^3/uL (0.0-0.2) Sodium Level 138 mmol/L (136-145) Potassium Level 4.2 mmol/L (3.5-5.1) Chloride Level 103 mmol/L (98-107) Carbon Dioxide Level 27 mmol/L (21-32) Anion Gap 8 (6-14) Blood Urea Nitrogen 19 mg/dL (7-20) Creatinine 0.8 mg/dL (0.6-1.0) Estimated GFR (Cockcroft-Gault) 67.7 BUN/Creatinine Ratio 24 (6-20) H Glucose Level 77 mg/dL (70-99) Calcium Level 8.5 mg/dL (8.5-10.1) Total Bilirubin 0.6 mg/dL (0.2-1.0) Aspartate Amino Transferase (AST) 17 U/L (15-37) Alanine Aminotransferase (ALT) 20 U/L (14-59) Alkaline Phosphatase 93 U/L (46-116) Total Protein 5.8 g/dL (6.4-8.2) L Albumin 2.6 g/dL (3.4-5.0) L Albumin/Globulin Ratio 0.8 (1.0-1.7) L Current Medications: I have reviewed the current psychotropics carefully including drug interactions. Risk benefit ratio favors no change other than as noted in my dictated progress note. 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
[2020-06-03] MEDS: POLYETHYLENE GLYCOL 3350 17 GM PACKET. PO SCH (08:02)
[2020-06-03] MEDS: LACTOBACILLUS RHAMNOSUS GG 1 CAPSULE. PO SCH ×2 (08:02→19:36)
[2020-06-03] MEDS: PANTOPRAZOLE 40 MG TABLET. PO SCH (08:02)
[2020-06-03] MEDS: ASPIRIN CHEWABLE 81 MG TABLET. PO SCH (08:03)
[2020-06-03] MEDS: METOPROLOL TART IMMED RELEASE 25 MG TABLET. PO SCH ×2 (08:03→19:36)
[2020-06-03] MEDS: POTASSIUM CHLORIDE 20 MEQ TABLET.ER. PO SCH (08:04)
--- NOTE | 2020-06-03 10:01 | NUR ---
Nursing note: Pt sitting in her bed when approached for AM med pass. She was compliant with her meds crushed in pudding and cooperative with her assessment. Pt is more interactive with staff than she has been previous days. She is answering questions with one word responses. Pt has been up and walked a lap around the unit and is now back laying in bed. Will continue to monitor.
[2020-06-03 15:41] VITALS: BP 146/71
--- NOTE | 2020-06-03 20:31 | NUR ---
Nursing Note: Location of Patient during Assessment: Pt sitting quietly on her bed at shift change. Behaviors Mood and Affect this shift: Pt more alert this evening, responsive to staff questions, and cooperative. Medication Compliant: Pt compliant with medications administered crushed in pudding. Assessment Compliant: Cooperative and compliant with assessment. Response After Interventions: Pt walked in hallway a short distance before returning to her room. She is currently sitting quietly.
--- NOTE | 2020-06-03 22:01 | PDOC ---
Exam Note: [place] Note: Please also refer to the separate dictated note~for this date of service dictated separately.~Patient seen individually. Discussed the patient with Nursing staff reviewed the chart.~Reviewed interim history and current functioning. Reviewed vital signs,~Labs/ Radiology~and current medications noted below. Continue current treatment with the changes noted in the dictated addendum note Assessment: Vital Signs/I&O: Vital Signs Date Time Temp Pulse Resp B/P (MAP) Pulse Ox O2 Delivery O2 Flow Rate FiO2 06/03/20 20:56 98.6 98 06/03/20 19:36 76 146/71 06/03/20 15:41 17 05/29/20 15:01 Room Air I & O 06/02/20 06/02/20 06/03/20 15:00 23:00 07:00 Intake Total 180 ml 0 ml Balance 180 ml 0 ml Labs: Laboratory Tests Test 06/03/20 06:26 White Blood Count 5.4 x10^3/uL (4.0-11.0) Red Blood Count 3.66 x10^6/uL (3.50-5.40) Hemoglobin 11.0 g/dL (12.0-15.5) L Hematocrit 33.5 % (36.0-47.0) L Mean Corpuscular Volume 91 fL (79-100) Mean Corpuscular Hemoglobin 30 pg (25-35) Mean Corpuscular Hemoglobin Concent 33 g/dL (31-37) Red Cell Distribution Width 14.2 % (11.5-14.5) Platelet Count 305 x10^3/uL (140-400) Neutrophils (%) (Auto) 75 % (31-73) H Lymphocytes (%) (Auto) 13 % (24-48) L Monocytes (%) (Auto) 9 % (0-9) Eosinophils (%) (Auto) 1 % (0-3) Basophils (%) (Auto) 2 % (0-3) Neutrophils # (Auto) 4.0 x10^3uL (1.8-7.7) Lymphocytes # (Auto) 0.7 x10^3/uL (1.0-4.8) L Monocytes # (Auto) 0.5 x10^3/uL (0.0-1.1) Eosinophils # (Auto) 0.0 x10^3/uL (0.0-0.7) Basophils # (Auto) 0.1 x10^3/uL (0.0-0.2) Sodium Level 138 mmol/L (136-145) Potassium Level 4.2 mmol/L (3.5-5.1) Chloride Level 103 mmol/L (98-107) Carbon Dioxide Level 27 mmol/L (21-32) Anion Gap 8 (6-14) Blood Urea Nitrogen 19 mg/dL (7-20) Creatinine 0.8 mg/dL (0.6-1.0) Estimated GFR (Cockcroft-Gault) 67.7 BUN/Creatinine Ratio 24 (6-20) H Glucose Level 77 mg/dL (70-99) Calcium Level 8.5 mg/dL (8.5-10.1) Total Bilirubin 0.6 mg/dL (0.2-1.0) Aspartate Amino Transferase (AST) 17 U/L (15-37) Alanine Aminotransferase (ALT) 20 U/L (14-59) Alkaline Phosphatase 93 U/L (46-116) Total Protein 5.8 g/dL (6.4-8.2) L Albumin 2.6 g/dL (3.4-5.0) L Albumin/Globulin Ratio 0.8 (1.0-1.7) L Current Medications: I have reviewed the current psychotropics carefully including drug interactions. Risk benefit ratio favors no change other than as noted in my dictated progress note. 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
[2020-06-04 06:31] VITALS: BP 156/72
--- NOTE | 2020-06-04 07:40 | PDOC ---
Exam Note: [place] Note: This note is a late entry for 06/03/2020 covers elements not covered in my initial note. Subjective: The patient was reviewed on telehealth rounds in the evening of 06/03/2020 with Ella OAKLEY. Discussed with nursing staff, reviewed the chart. The patient slept 8-3/4 hours previous night. She is doing better, less tired, less sedated, somewhat more verbally interactive. Previous night she was ignoring staff but not so during the day today. Review of Systems: Positive for tiredness. No CV, , pulmonary, eye, ENT system symptoms on review. Mental Status Exam: The patient is oriented to herself. Insight and judgment, recent and remote memory, attention and concentration, fund of knowledge is poor consistent with her diagnoses. Laboratory Data: Reviewed. Impression: Major neurocognitive disorder Alzheimer, vascular with delusion, depression, behavioral disturbance. Anxiety disorder unspecified. Impulse control disorder unspecified. Plan: The patients Remeron and Zyprexa had been discontinued. She is less sedated with this. Maintain rest of the psychotropics. Adjust further as clinically indicated. Assessment: Vital Signs/I&O: Vital Signs Date Time Temp Pulse Resp B/P (MAP) Pulse Ox O2 Delivery O2 Flow Rate FiO2 06/04/20 06:31 98.4 85 18 156/72 (100) 96 Room Air I & O 06/03/20 06/03/20 06/04/20 15:00 23:00 07:00 Intake Total 320 ml 200 ml Balance 320 ml 200 ml Current Medications: I have reviewed the current psychotropics carefully including drug interactions. Risk benefit ratio favors no change other than as noted in my dictated progress note. 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
[2020-06-04] MEDS: PANTOPRAZOLE 40 MG TABLET. PO SCH (09:48)
[2020-06-04] MEDS: LACTOBACILLUS RHAMNOSUS GG 1 CAPSULE. PO SCH ×2 (09:48→20:39)
[2020-06-04] MEDS: ASPIRIN CHEWABLE 81 MG TABLET. PO SCH (09:48)
[2020-06-04] MEDS: POLYETHYLENE GLYCOL 3350 17 GM PACKET. PO SCH (09:49)
[2020-06-04] MEDS: METOPROLOL TART IMMED RELEASE 25 MG TABLET. PO SCH ×2 (09:49→20:39)
--- NOTE | 2020-06-04 11:24 | NUR ---
WEEKLY ACTIVITY THERAPY NOTE Date of Admission: 05/27 Date of AT Assessment: 05/28 Precipitating behaviors that initiated intake and admission:impulsive, pulls on lines and cords, fidgety, periods of agitation, daughter reports pt to be aggressive at home, putting self on floor Goal aimed: to increase time management and socialization Initial Goal: Pt will participate in at least two individual Activity Therapy sessions per week. Weekly progress towards goal: did not achieve Group participation level: zero Weekly highlights: Behaviors observed: withdrawn, sleeping often, in secured hallway Plan: no change to goal Beneficial adaptations:
--- NOTE | 2020-06-04 11:47 | TX PLAN ---
Interdisciplinary Tx Plan Admission Information May 27, 2020 at 10:16 Legal Status (on Admission): Voluntary DPOA/Guardian Name: Sara Butler Contact Verified Code Status: DNR Allergies: Coded Allergies: No Known Drug Allergies (Unverified , 05/22/20) Diagnoses Primary Diagnosis: Major Neurocognitive D/O Reasons for Admission: Agitated, Confusion/Disoriented, Poor impulse control, Other Problem in Patient's Words: She has continued to decline since January of this year Additional Admission Comments: According to the intake, pt was on the medical floor being impulsive, pulling lines and cords in her room, fidgety, having periods of agitation. Dtr reports that at home pt was aggressive towards her and putting herself on the floor and at times manic. Problems Active Problems: Restless Minor sundowning Inactive Problems: Medication compliance Pt Strengths/Limitations Ability for [place]: Poor Cognitive Functioning/Ability: Fair Communication Skills/Ability: Fair Financial Resources: Fair Insight/Judgement: Poor Intellectual Ability: Fair Physical Health: Fair Social Skills: Fair Stability in Family: Fair Stability in School/Work: Poor Verbal Skills: Fair Discharge Criteria Discharge Criteria: Able meet basic life need, Adequate arrangements @DC, Improved behavior, Improved mood/thought Preliminary Discharge Plan Preliminary DC Plan: Current Living Arrange. Special Precautions Fall Risk: Moderate Initial D/C Plan Pt dtr wishes for pt to return home once stable Identified Discharge Needs: Mental health services Currently Utilized Resources Currently Utilized Resources/P: Primary Care Physician Referrals Community Resources: Psychiatry Behavioral Health nurse/services Identified Problems/Hx/Goals Objectives/Short-Term Goals Short Term Goals: Medication Stabilization, Monitor Med Effects, Promote Coping Skill, Other Short Term Goals in Patient's: Medication assessment and behavioral managment Interventions/Frequency Staff Interventions/Frequency&: Psychiatrist to assess pt at least 3x per week for medication management. Social work to assess pt at least 2x per week for discharge planning, care needs and barriers. Nursing to assess behaviors, medication and complete 15 minute checks daily. 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 Education: Pt graduated high school; 12th grade completed Community Follow-up Primary Care Physician Referral to [facility] at discharge Treatment Plan Explained Patient/Boarding House Manager had this treatment plan explained to him/her as indicated by the signature below and has been given the opportunity to ask questions and make suggestions: Date: Patient/Boarding House Manager Signature: Status Update Update Pt is eating roughly 50% of meals and sleeping on average 6 hours per night. Pt was up last night at 0230 wandering around the unit looking for her family. Pt is medication compliant and more interactive with staff. This morning pt told nursing that she was at the [facility] [place] but very pleasant with the assessment. Pt will be started on Zoloft 25mg daily now that pt is not as sedated. Pt will look towards discharging home with his dtr and receiving outpt services; CAM the latter part of next week. JANNA MARTIN Jun 04, 2020 11:47
[2020-06-04 15:21] VITALS: BP 124/69
--- NOTE | 2020-06-04 18:30 | NUR ---
Patient was calm, cooperative, and pleasantly confused throughout this shift. When asked where are we, patient responded '[facility] in [place].' She was withdrawn to her room during the afternoon, taking a nap and staying in bed. She had a better appetite today than previously. Will continue to monitor and report to oncoming shift.
--- NOTE | 2020-06-04 21:59 | PDOC ---
Exam Note: [place] Note: Please also refer to the separate dictated note~for this date of service dictated separately.~Patient seen individually. Discussed the patient with Nursing staff reviewed the chart.~Reviewed interim history and current functioning. Reviewed vital signs,~Labs/ Radiology~and current medications noted below. Continue current treatment with the changes noted in the dictated addendum note Assessment: Vital Signs/I&O: Vital Signs Date Time Temp Pulse Resp B/P (MAP) Pulse Ox O2 Delivery O2 Flow Rate FiO2 06/04/20 20:39 57 124/69 06/04/20 15:21 98.7 16 96 Room Air I & O 06/03/20 06/03/20 06/04/20 14:59 22:59 06:59 Intake Total 320 ml 200 ml Balance 320 ml 200 ml Current Medications: I have reviewed the current psychotropics carefully including drug interactions. Risk benefit ratio favors no change other than as noted in my dictated progress note. 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
[2020-06-05 06:23] VITALS: BP 137/86
--- NOTE | 2020-06-05 10:09 | NUR ---
Patient still sleeping. Breakfast tray held, will give medications when she wakes up.
[2020-06-05] MEDS: ASPIRIN CHEWABLE 81 MG TABLET. PO SCH (10:12)
[2020-06-05] MEDS: POLYETHYLENE GLYCOL 3350 17 GM PACKET. PO SCH (10:12)
[2020-06-05] MEDS: LACTOBACILLUS RHAMNOSUS GG 1 CAPSULE. PO SCH ×2 (10:12→20:38)
[2020-06-05] MEDS: METOPROLOL TART IMMED RELEASE 25 MG TABLET. PO SCH ×2 (10:12→20:38)
[2020-06-05] MEDS: PANTOPRAZOLE 40 MG TABLET. PO SCH (10:12)
[2020-06-05] MEDS: SERTRALINE 25 MG TABLET. PO SCH (10:13)
[2020-06-05 15:31] VITALS: BP 104/71
--- NOTE | 2020-06-05 15:46 | NUR ---
Patient was compliant taking medications whole with water. She ate her breakfast well, she seems to enjoy the pureed food. Patient was observed walking in the hallway with her walker, she had a slow but steady gait. Patient would not answer any questions asked by nurse and just stared blankly when spoken to. She has been more interactive with other staff. She has had no episodes of self harm and there has been no aggression noted.
--- NOTE | 2020-06-05 21:00 | NUR ---
Patient is in bed on assumption of care. She is asleep, but arouses to name being called. Compliant with assessments and medications crushed in small amount of ice cream. No agitation. She does not appear to be experiencing any pain or discomfort. No agitation. Appears to be sleeping comfortably at present time. Will continue to monitor.
--- NOTE | 2020-06-05 21:58 | PDOC ---
Exam Note: [place] Note: Please also refer to the separate dictated note~for this date of service dictated separately.~Patient seen individually. Discussed the patient with Nursing staff reviewed the chart.~Reviewed interim history and current functioning. Reviewed vital signs,~Labs/ Radiology~and current medications noted below. Continue current treatment with the changes noted in the dictated addendum note Assessment: Vital Signs/I&O: Vital Signs Date Time Temp Pulse Resp B/P (MAP) Pulse Ox O2 Delivery O2 Flow Rate FiO2 06/05/20 20:38 55 120/78 06/05/20 15:31 98.3 16 06/05/20 06:23 96 06/04/20 15:21 Room Air I & O 06/04/20 06/04/20 06/05/20 15:00 23:00 07:00 Intake Total 320 ml 120 ml Balance 320 ml 120 ml Current Medications: Meds: Current Medications Medications (Trade) Dose Ordered Sig/Barbara Route PRN Reason Start Time Stop Time Status Last Admin Dose Admin Sertraline HCl (Zoloft) 25 mg DAILY PO 06/05/20 09:00 06/05/20 10:13 I have reviewed the current psychotropics carefully including drug interactions. Risk benefit ratio favors no change other than as noted in my dictated progress note. 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
--- NOTE | 2020-06-06 01:57 | NUR ---
Pt in bed and appeared sleeping upon initial interaction during PM shift. Attempted to conversate with patient but pt did not respond. Will continue to monitor throughout shift.
[2020-06-06 05:00] VITALS: BP 129/73
--- NOTE | 2020-06-06 06:52 | PDOC ---
Exam Note: [place] Note: This note is a late entry for 06/04/2020 covers elements not covered in my initial note. Subjective: The patient was reviewed on telehealth rounds for treatment team meeting in the morning 06/04/2020 with [facility] social service staff and John OAKLEY. Discussed with nursing staff, reviewed the chart. The patient slept 6-1/2 hours previous night. She remains confused, less sedated, looking for her family. I reviewed her on telehealth rounds also in the evening. She felt she was at [facility] in [place]. She did eat lunch, no dinner, took Ensure pudding. Review of Systems: She is hard of hearing. No CV, , pulmonary, eye, ENT system symptoms on review. Reliability poor. Mental Status Exam: The patient is oriented to herself. Insight and judgment, recent and remote memory, attention and concentration, fund of knowledge is poor consistent with her diagnoses. Laboratory Data: Reviewed. Impression: Major neurocognitive disorder Alzheimer, vascular with delusion, depression, behavioral disturbance. Anxiety disorder unspecified. Impulse control disorder unspecified. Plan: Start Zoloft 25 mg a day. Increase gradually. We will stop her Seroquel and other sedating psychotropics. Adjust further as clinically indicated. Assessment: Vital Signs/I&O: Vital Signs Date Time Temp Pulse Resp B/P (MAP) Pulse Ox O2 Delivery O2 Flow Rate FiO2 06/06/20 05:00 98.4 78 16 129/73 (91) 95 Room Air I & O 06/05/20 06/05/20 06/06/20 15:00 23:00 07:00 Intake Total 220 ml 360 ml Balance 220 ml 360 ml Current Medications: Meds: Current Medications Medications (Trade) Dose Ordered Sig/Barbara Route PRN Reason Start Time Stop Time Status Last Admin Dose Admin Sertraline HCl (Zoloft) 25 mg DAILY PO 06/05/20 09:00 06/05/20 10:13 I have reviewed the current psychotropics carefully including drug interactions. Risk benefit ratio favors no change other than as noted in my dictated progress note. 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
--- NOTE | 2020-06-06 07:03 | PDOC ---
Exam Note: [place] Note: This note is a late entry for 06/05/2020 covers elements not covered in my initial note. Subjective: The patient was reviewed on telehealth rounds in the evening of 06/05/2020 with Renita OAKLEY. Discussed with nursing staff, reviewed the chart. The patient slept 9-3/4 hours previous night. She slept in, in the morning, took her meds later. Review of Systems: Ambulates with walker. She is hard of hearing. No CV, , pulmonary, eye, ENT system symptoms on review. Mental Status Exam: The patient is oriented to herself. Insight and judgment, recent and remote memory, attention and concentration, fund of knowledge is poor consistent with her diagnoses. Laboratory Data: Reviewed. Impression: Major neurocognitive disorder Alzheimer, vascular with delusion, depression, behavioral disturbance. Anxiety disorder unspecified. Impulse control disorder unspecified. Plan: Continue psychotropics unchanged. Assessment: Vital Signs/I&O: Vital Signs Date Time Temp Pulse Resp B/P (MAP) Pulse Ox O2 Delivery O2 Flow Rate FiO2 06/06/20 05:00 98.4 78 16 129/73 (91) 95 Room Air I & O 06/05/20 06/05/20 06/06/20 15:00 23:00 07:00 Intake Total 220 ml 360 ml Balance 220 ml 360 ml Current Medications: Meds: Current Medications Medications (Trade) Dose Ordered Sig/Barbara Route PRN Reason Start Time Stop Time Status Last Admin Dose Admin Sertraline HCl (Zoloft) 25 mg DAILY PO 06/05/20 09:00 06/05/20 10:13 I have reviewed the current psychotropics carefully including drug interactions. Risk benefit ratio favors no change other than as noted in my dictated progress note. 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
[2020-06-06] MEDS: POLYETHYLENE GLYCOL 3350 17 GM PACKET. PO SCH (09:00)
[2020-06-06] MEDS: PANTOPRAZOLE 40 MG TABLET. PO SCH (09:16)
[2020-06-06] MEDS: ASPIRIN CHEWABLE 81 MG TABLET. PO SCH (09:17)
[2020-06-06] MEDS: LACTOBACILLUS RHAMNOSUS GG 1 CAPSULE. PO SCH ×2 (09:17→19:59)
[2020-06-06] MEDS: SERTRALINE 25 MG TABLET. PO SCH (09:18)
[2020-06-06] MEDS: METOPROLOL TART IMMED RELEASE 25 MG TABLET. PO SCH ×2 (09:18→19:59)
--- NOTE | 2020-06-06 12:03 | NUR ---
Pt is calm, cooperative and compliant. No agitation, no aggression, no hallucinations or delusions noted. She stated her depression stated several months ago and she feels it is due to lack of visitors. She stated she feels anxious as she does not know where she will live after discharge. Nurse validated pts feelings and provided emotional support. Nurse encouraged pt to ambulate today and educated pt on hospital acquired pneumonia. Pt acknowledged understanding and walked the koehler this morning. Pt denies SI/HI.
[2020-06-06 15:00] VITALS: BP 98/60
--- NOTE | 2020-06-06 21:00 | NUR ---
Patient is in her room on assumption of care, awake in bed. She is much more interactive than she has been on previous shifts. Compliant with assessments and medications taken crushed in pudding. She has been out of her room several times to ambulate in the koe[place]. Compliant with using her walker appropriately and wearing her mask when out of her room. No agitation. No complaints of pain or discomfort. Patient appears to be sleeping comfortably at present time. Will continue to monitor.
--- NOTE | 2020-06-06 21:41 | NUR ---
Pt pleasant with interaction (smiled when addressed). Declined snack but pt interacted more with engagement than prior shifts (eyes open as opposed to closed). Pt. in bed appearing to be sleeping throughout PM rounding, will continue to monitor.
--- NOTE | 2020-06-06 22:07 | PDOC ---
Exam Note: [place] Note: Please also refer to the separate dictated note~for this date of service dictated separately.~Patient seen individually. Discussed the patient with Nursing staff reviewed the chart.~Reviewed interim history and current functioning. Reviewed vital signs,~Labs/ Radiology~and current medications noted below. Continue current treatment with the changes noted in the dictated addendum note Assessment: Vital Signs/I&O: Vital Signs Date Time Temp Pulse Resp B/P (MAP) Pulse Ox O2 Delivery O2 Flow Rate FiO2 06/06/20 19:59 78 128/66 06/06/20 15:00 97.4 18 98 Room Air I & O 06/05/20 06/05/20 06/06/20 15:00 23:00 07:00 Intake Total 220 ml 360 ml Balance 220 ml 360 ml Current Medications: I have reviewed the current psychotropics carefully including drug interactions. Risk benefit ratio favors no change other than as noted in my dictated progress note. 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
--- NOTE | 2020-06-06 23:20 | PDOC ---
Exam Note: [place] Note: This note for 06/06/2020 covers elements not covered in my initial note. Subjective: The patient was reviewed on telehealth rounds in the evening of 06/06/2020 with Jordyn OAKLEY. Discussed with nursing staff, reviewed the chart. The patient has been less sedated during the day but remains withdrawn. Nursing staff feels she plays possum. Later she was more verbal, interactive and minimally verbally interactive during telehealth rounds with me. She has reported that she feels depressed due to the current COVID situation and not having any visitors. She has been walking the hallways, less tired today. Review of Systems: Ambulates with walker. No CV, , pulmonary, eye, ENT system symptoms on review. Mental Status Exam: The patient is oriented to herself. Insight and judgment, recent and remote memory, attention and concentration, fund of knowledge is poor consistent with her diagnoses. Laboratory Data: Reviewed. Impression: Major neurocognitive disorder Alzheimer, vascular with delusion, depression, behavioral disturbance. Anxiety disorder unspecified. Impulse control disorder unspecified. Plan: We will increase the Zoloft from 25 mg a day to 50 mg a day. Rest unchanged for now. Assessment: Vital Signs/I&O: Vital Signs Date Time Temp Pulse Resp B/P (MAP) Pulse Ox O2 Delivery O2 Flow Rate FiO2 06/06/20 19:59 78 128/66 06/06/20 15:00 97.4 18 98 Room Air I & O 06/05/20 06/05/20 06/06/20 15:00 23:00 07:00 Intake Total 220 ml 360 ml Balance 220 ml 360 ml Current Medications: I have reviewed the current psychotropics carefully including drug interactions. Risk benefit ratio favors no change other than as noted in my dictated progress note. 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
[2020-06-07 05:00] VITALS: BP 134/73
[2020-06-07] MEDS: POLYETHYLENE GLYCOL 3350 17 GM PACKET. PO SCH (09:14)
[2020-06-07] MEDS: LACTOBACILLUS RHAMNOSUS GG 1 CAPSULE. PO SCH ×2 (09:15→20:21)
[2020-06-07] MEDS: ASPIRIN CHEWABLE 81 MG TABLET. PO SCH (09:15)
[2020-06-07] MEDS: METOPROLOL TART IMMED RELEASE 25 MG TABLET. PO SCH ×2 (09:15→20:21)
[2020-06-07] MEDS: PANTOPRAZOLE 40 MG TABLET. PO SCH (09:15)
[2020-06-07] MEDS: SERTRALINE 25 MG TABLET. PO SCH (09:16)
--- NOTE | 2020-06-07 11:08 | NUR ---
Pt is calm, cooperative and compliant. No agitation, no aggression, no hallucinations or delusions noted. She is more talkative today than yesterday however she states her depression feels worse today than yesterday. When asked if she would like to talk about what is bothering her, she declined stating she talks to her family. Nurse reminded her to ambulate to prevent hospital acquired pneumonia. Pt acknowledged understanding.
[2020-06-07 15:00] VITALS: BP 134/74
--- NOTE | 2020-06-07 22:12 | PDOC ---
Exam Note: [place] Note: Please also refer to the separate dictated note~for this date of service dictated separately.~Patient seen individually. Discussed the patient with Nursing staff reviewed the chart.~Reviewed interim history and current functioning. Reviewed vital signs,~Labs/ Radiology~and current medications noted below. Continue current treatment with the changes noted in the dictated addendum note Assessment: Vital Signs/I&O: Vital Signs Date Time Temp Pulse Resp B/P (MAP) Pulse Ox O2 Delivery O2 Flow Rate FiO2 06/07/20 20:21 58 134/74 06/07/20 15:00 97.6 16 98 Room Air I & O 06/06/20 06/06/20 06/07/20 15:00 23:00 07:00 Intake Total 360 ml 120 ml Balance 360 ml 120 ml Current Medications: Meds: Current Medications Medications (Trade) Dose Ordered Sig/Barbara Route PRN Reason Start Time Stop Time Status Last Admin Dose Admin Sertraline HCl (Zoloft) 50 mg DAILY PO 06/07/20 09:00 06/09/20 11:00 06/07/20 09:16 I have reviewed the current psychotropics carefully including drug interactions. Risk benefit ratio favors no change other than as noted in my dictated progress note. 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
--- NOTE | 2020-06-07 22:59 | NUR ---
Patient is in her room on assumption of care, awake in bed. Compliant with assessments and medications taken crushed in pudding. No agitation. No complaints of pain or discomfort. Patient appears to be sleeping comfortably at present time. Will continue to monitor.
[2020-06-08 06:00] VITALS: BP 166/82
[2020-06-08] MEDS: POLYETHYLENE GLYCOL 3350 17 GM PACKET. PO SCH (09:20)
[2020-06-08] MEDS: LACTOBACILLUS RHAMNOSUS GG 1 CAPSULE. PO SCH ×2 (09:22→20:03)
[2020-06-08] MEDS: SERTRALINE 25 MG TABLET. PO SCH (09:22)
[2020-06-08] MEDS: ASPIRIN CHEWABLE 81 MG TABLET. PO SCH (09:22)
[2020-06-08] MEDS: METOPROLOL TART IMMED RELEASE 25 MG TABLET. PO SCH ×2 (09:22→20:11)
[2020-06-08] MEDS: PANTOPRAZOLE 40 MG TABLET. PO SCH (09:22)
[2020-06-08 10:11] LABS: BASO % 1 % (0-3); EOS % 0 % (0-3); HEMATOCRIT 36.2 % (36.0-47.0); HEMOGLOBIN 12.1 g/dL (12.0-15.5); LYMPH # 0.7 x10^3/uL (1.0-4.8); LYMPH % 12 % (24-48); MEAN CORPUSCULAR HEMOGLOBIN 30 pg (25-35); MEAN CORPUSCULAR HGB CONC 33 g/dL (31-37); MEAN CORPUSCULAR VOLUME 90 fL (79-100); MONO # 0.5 x10^3/uL (0.0-1.1); MONO % 9 % (0-9); NEUT # 4.4 x10^3uL (1.8-7.7); NEUT % 78 % (31-73); PLATELET COUNT 311 x10^3/uL (140-400); RED BLOOD COUNT 4.02 x10^6/uL (3.50-5.40); RED CELL DISTRIBUTION WIDTH 14.2 % (11.5-14.5); WHITE BLOOD COUNT 5.7 x10^3/uL (4.0-11.0)
[2020-06-08 10:24] LABS: ALBUMIN 2.8 g/dL (3.4-5.0); ALBUMIN/GLOBULIN RATIO 0.8 (1.0-1.7); CALCIUM 8.6 mg/dL (8.5-10.1); CREATININE 0.8 mg/dL (0.6-1.0); GFR 67.7; POTASSIUM 3.3 mmol/L (3.5-5.1); TOTAL BILIRUBIN 0.4 mg/dL (0.2-1.0); TOTAL PROTEIN 6.2 g/dL (6.4-8.2)
--- NOTE | 2020-06-08 14:27 | NUR ---
Pt is calm, cooperative and compliant. No agitation, no aggression, no hallucinations or delusions noted.
[2020-06-08 15:52] VITALS: BP 125/77
[2020-06-08] MEDS ORDERED: POLYETHYLENE GLYCOL 3350 17 GM PACKET. PO PRN (17:30)
--- NOTE | 2020-06-08 21:19 | NUR ---
Nursing Note: Location of Patient during Assessment: Pt withdrawn to her room, lying in bed at shift change. Behaviors Mood and Affect this shift: Pt calm, cooperative, and pleasant when approached. Medication Compliant: Compliant with medications administered crushed in pudding. Assessment Compliant: Cooperative and compliant with assessment, denies pain at this time. Response After Interventions: Pt resting quietly in bed with eyes closed at this time.
--- NOTE | 2020-06-08 22:00 | PDOC ---
Exam Note: [place] Note: Please also refer to the separate dictated note~for this date of service dictated separately.~Patient seen individually. Discussed the patient with Nursing staff reviewed the chart.~Reviewed interim history and current functioning. Reviewed vital signs,~Labs/ Radiology~and current medications noted below. Continue current treatment with the changes noted in the dictated addendum note Assessment: Vital Signs/I&O: Vital Signs Date Time Temp Pulse Resp B/P (MAP) Pulse Ox O2 Delivery O2 Flow Rate FiO2 06/08/20 20:11 67 145/83 06/08/20 15:52 98.2 17 96 06/08/20 06:00 Room Air I & O 06/07/20 06/07/20 06/08/20 15:00 23:00 07:00 Intake Total 480 ml 340 ml Balance 480 ml 340 ml Labs: Laboratory Tests Test 06/08/20 09:42 White Blood Count 5.7 x10^3/uL (4.0-11.0) Red Blood Count 4.02 x10^6/uL (3.50-5.40) Hemoglobin 12.1 g/dL (12.0-15.5) Hematocrit 36.2 % (36.0-47.0) Mean Corpuscular Volume 90 fL (79-100) Mean Corpuscular Hemoglobin 30 pg (25-35) Mean Corpuscular Hemoglobin Concent 33 g/dL (31-37) Red Cell Distribution Width 14.2 % (11.5-14.5) Platelet Count 311 x10^3/uL (140-400) Neutrophils (%) (Auto) 78 % (31-73) H Lymphocytes (%) (Auto) 12 % (24-48) L Monocytes (%) (Auto) 9 % (0-9) Eosinophils (%) (Auto) 0 % (0-3) Basophils (%) (Auto) 1 % (0-3) Neutrophils # (Auto) 4.4 x10^3uL (1.8-7.7) Lymphocytes # (Auto) 0.7 x10^3/uL (1.0-4.8) L Monocytes # (Auto) 0.5 x10^3/uL (0.0-1.1) Eosinophils # (Auto) 0.0 x10^3/uL (0.0-0.7) Basophils # (Auto) 0.0 x10^3/uL (0.0-0.2) Sodium Level 131 mmol/L (136-145) L Potassium Level 3.3 mmol/L (3.5-5.1) L Chloride Level 96 mmol/L (98-107) L Carbon Dioxide Level 25 mmol/L (21-32) Anion Gap 10 (6-14) Blood Urea Nitrogen 8 mg/dL (7-20) Creatinine 0.8 mg/dL (0.6-1.0) Estimated GFR (Cockcroft-Gault) 67.7 BUN/Creatinine Ratio 10 (6-20) Glucose Level 148 mg/dL (70-99) H Calcium Level 8.6 mg/dL (8.5-10.1) Total Bilirubin 0.4 mg/dL (0.2-1.0) Aspartate Amino Transferase (AST) 14 U/L (15-37) L Alanine Aminotransferase (ALT) 17 U/L (14-59) Alkaline Phosphatase 116 U/L (46-116) Total Protein 6.2 g/dL (6.4-8.2) L Albumin 2.8 g/dL (3.4-5.0) L Albumin/Globulin Ratio 0.8 (1.0-1.7) L Current Medications: I have reviewed the current psychotropics carefully including drug interactions. Risk benefit ratio favors no change other than as noted in my dictated progress note. 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
[2020-06-09 06:29] VITALS: BP 155/85
--- NOTE | 2020-06-09 06:29 | PDOC ---
Exam Note: [place] Note: This note is a late entry for 06/07/2020 covers elements not covered in my initial note. Subjective: The patient was reviewed on telehealth rounds in the evening of 06/07/2020 with Jordyn OAKLEY. Discussed with nursing staff, reviewed the chart. The patient slept 7-1/2 hours previous night, did well previous night, less tired during the day. Previous evening she was not very verbally interactive or answering questions, little bit better during the day on the 06/07. Review of Systems: Ambulation impaired with some tiredness. No CV, , pulmonary, eye, ENT system symptoms on review. Mental Status Exam: The patient is seen on telehealth rounds. She remains somewhat withdrawn, depressed. Insight and judgment, recent and remote memory, attention and concentration, fund of knowledge is poor consistent with her d iagnoses. Laboratory Data: Reviewed. Impression: Major neurocognitive disorder Alzheimer, vascular with delusion, depression, behavioral disturbance. Anxiety disorder unspecified. Impulse control disorder unspecified. Plan: We had increased the Zoloft to 50 mg a day and 3 days after being on 50 mg we will go up to 75 mg a day. Rest unchanged for now. Assessment: Vital Signs/I&O: Vital Signs Date Time Temp Pulse Resp B/P (MAP) Pulse Ox O2 Delivery O2 Flow Rate FiO2 06/08/20 20:11 67 145/83 06/08/20 15:52 98.2 17 96 06/08/20 06:00 Room Air I & O 06/08/20 06/08/20 06/09/20 15:00 23:00 07:00 Intake Total 960 ml 1300 ml Balance 960 ml 1300 ml Labs: Laboratory Tests Test 06/08/20 09:42 White Blood Count 5.7 x10^3/uL (4.0-11.0) Red Blood Count 4.02 x10^6/uL (3.50-5.40) Hemoglobin 12.1 g/dL (12.0-15.5) Hematocrit 36.2 % (36.0-47.0) Mean Corpuscular Volume 90 fL (79-100) Mean Corpuscular Hemoglobin 30 pg (25-35) Mean Corpuscular Hemoglobin Concent 33 g/dL (31-37) Red Cell Distribution Width 14.2 % (11.5-14.5) Platelet Count 311 x10^3/uL (140-400) Neutrophils (%) (Auto) 78 % (31-73) H Lymphocytes (%) (Auto) 12 % (24-48) L Monocytes (%) (Auto) 9 % (0-9) Eosinophils (%) (Auto) 0 % (0-3) Basophils (%) (Auto) 1 % (0-3) Neutrophils # (Auto) 4.4 x10^3uL (1.8-7.7) Lymphocytes # (Auto) 0.7 x10^3/uL (1.0-4.8) L Monocytes # (Auto) 0.5 x10^3/uL (0.0-1.1) Eosinophils # (Auto) 0.0 x10^3/uL (0.0-0.7) Basophils # (Auto) 0.0 x10^3/uL (0.0-0.2) Sodium Level 131 mmol/L (136-145) L Potassium Level 3.3 mmol/L (3.5-5.1) L Chloride Level 96 mmol/L (98-107) L Carbon Dioxide Level 25 mmol/L (21-32) Anion Gap 10 (6-14) Blood Urea Nitrogen 8 mg/dL (7-20) Creatinine 0.8 mg/dL (0.6-1.0) Estimated GFR (Cockcroft-Gault) 67.7 BUN/Creatinine Ratio 10 (6-20) Glucose Level 148 mg/dL (70-99) H Calcium Level 8.6 mg/dL (8.5-10.1) Total Bilirubin 0.4 mg/dL (0.2-1.0) Aspartate Amino Transferase (AST) 14 U/L (15-37) L Alanine Aminotransferase (ALT) 17 U/L (14-59) Alkaline Phosphatase 116 U/L (46-116) Total Protein 6.2 g/dL (6.4-8.2) L Albumin 2.8 g/dL (3.4-5.0) L Albumin/Globulin Ratio 0.8 (1.0-1.7) L Current Medications: I have reviewed the current psychotropics carefully including drug interactions. Risk benefit ratio favors no change other than as noted in my dictated progress note. 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
--- NOTE | 2020-06-09 06:48 | PDOC ---
Exam Note: [place] Note: This note is a late entry for 06/08/2020 covers elements not covered in my initial note. Subjective: The patient was reviewed on telehealth rounds in the evening of 06/08/2020 with Jordyn OAKLEY. Discussed with nursing staff, reviewed the chart. She slept 7-3/4 hours previous night. Sodium low at 131, potassium 2.1. Dr. Shipman wonders whether Zoloft could be contributing to this and we will go ahead and stop it and consider Wellbutrin later. Review of Systems: Ambulates with walker. No CV, , pulmonary, eye, ENT system symptoms on review. Mental Status Exam: The patient is oriented to herself. Insight and judgment, recent and remote memory, attention and concentration, fund of knowledge is poor consistent with her diagnoses. Laboratory Data: Reviewed. Impression: Major neurocognitive disorder Alzheimer, vascular with delusion, depression, behavioral disturbance. Anxiety disorder unspecified. Impulse control disorder unspecified. Plan: Stop the Zoloft. Continue rest of the psychotropics. Adjust further as clinically indicated. We had previously stopped her antipsychotics as well due to sedation. Assessment: Vital Signs/I&O: Vital Signs Date Time Temp Pulse Resp B/P (MAP) Pulse Ox O2 Delivery O2 Flow Rate FiO2 06/09/20 06:29 98.5 80 16 155/85 (108) 96 Room Air I & O 06/08/20 06/08/20 06/09/20 15:00 23:00 07:00 Intake Total 960 ml 1300 ml Balance 960 ml 1300 ml Labs: Laboratory Tests Test 06/08/20 09:42 White Blood Count 5.7 x10^3/uL (4.0-11.0) Red Blood Count 4.02 x10^6/uL (3.50-5.40) Hemoglobin 12.1 g/dL (12.0-15.5) Hematocrit 36.2 % (36.0-47.0) Mean Corpuscular Volume 90 fL (79-100) Mean Corpuscular Hemoglobin 30 pg (25-35) Mean Corpuscular Hemoglobin Concent 33 g/dL (31-37) Red Cell Distribution Width 14.2 % (11.5-14.5) Platelet Count 311 x10^3/uL (140-400) Neutrophils (%) (Auto) 78 % (31-73) H Lymphocytes (%) (Auto) 12 % (24-48) L Monocytes (%) (Auto) 9 % (0-9) Eosinophils (%) (Auto) 0 % (0-3) Basophils (%) (Auto) 1 % (0-3) Neutrophils # (Auto) 4.4 x10^3uL (1.8-7.7) Lymphocytes # (Auto) 0.7 x10^3/uL (1.0-4.8) L Monocytes # (Auto) 0.5 x10^3/uL (0.0-1.1) Eosinophils # (Auto) 0.0 x10^3/uL (0.0-0.7) Basophils # (Auto) 0.0 x10^3/uL (0.0-0.2) Sodium Level 131 mmol/L (136-145) L Potassium Level 3.3 mmol/L (3.5-5.1) L Chloride Level 96 mmol/L (98-107) L Carbon Dioxide Level 25 mmol/L (21-32) Anion Gap 10 (6-14) Blood Urea Nitrogen 8 mg/dL (7-20) Creatinine 0.8 mg/dL (0.6-1.0) Estimated GFR (Cockcroft-Gault) 67.7 BUN/Creatinine Ratio 10 (6-20) Glucose Level 148 mg/dL (70-99) H Calcium Level 8.6 mg/dL (8.5-10.1) Total Bilirubin 0.4 mg/dL (0.2-1.0) Aspartate Amino Transferase (AST) 14 U/L (15-37) L Alanine Aminotransferase (ALT) 17 U/L (14-59) Alkaline Phosphatase 116 U/L (46-116) Total Protein 6.2 g/dL (6.4-8.2) L Albumin 2.8 g/dL (3.4-5.0) L Albumin/Globulin Ratio 0.8 (1.0-1.7) L Current Medications: I have reviewed the current psychotropics carefully including drug interactions. Risk benefit ratio favors no change other than as noted in my dictated progress note. 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
[2020-06-09 07:03] LABS: CALCIUM 8.6 mg/dL (8.5-10.1); CREATININE 0.7 mg/dL (0.6-1.0); POTASSIUM 3.6 mmol/L (3.5-5.1)
[2020-06-09] MEDS: METOPROLOL TART IMMED RELEASE 25 MG TABLET. PO SCH ×2 (07:47→19:34)
[2020-06-09] MEDS: PANTOPRAZOLE 40 MG TABLET. PO SCH (07:47)
[2020-06-09] MEDS: ASPIRIN CHEWABLE 81 MG TABLET. PO SCH (07:47)
[2020-06-09] MEDS: LACTOBACILLUS RHAMNOSUS GG 1 CAPSULE. PO SCH ×2 (07:47→19:33)
--- NOTE | 2020-06-09 11:51 | NUR ---
Nursing note: Pt laying in her bed for morning med pass and assessment. She was compliant with meds crushed in pudding and cooperative with her assessment. Pt denied any pain or discomfort. Pt is more interactive today than she has been previously. Will continue to monitor.
--- NOTE | 2020-06-09 13:47 | NUR ---
RADHA contacted pt dtr, Sara, to go over how pt is doing and mentioned the fact that due to pt sodium decrease, pt was taken off Zoloft and may be considered to start Wellbutrin instead. Pt dtr was happy to hear that pt was taken off a lot of meds as she has been on some of them for the last 40 years. SW and pt dtr discussed having pt discharge on Monday with pt dtr picking her up around 1100. SW will follow up with the psychiatrist on when the Wellbutrin will start and get back to pt dtr. No other concerns for pt was noted.
[2020-06-09 16:16] VITALS: BP 121/82
--- NOTE | 2020-06-09 21:33 | NUR ---
Nursing Note: Location of Patient during Assessment: Pt withdrawn to her room, sitting Behaviors Mood and Affect this shift: Pt calm, cooperative, and interactive when approached. Medication Compliant: Compliant with medications administered crushed in pudding. Assessment Compliant: Cooperative and compliant with assessment, denies pain at this time. Response After Interventions: Pt resting quietly in bed with eyes closed at this time.
--- NOTE | 2020-06-09 21:51 | PDOC ---
Exam Note: [place] Note: Please also refer to the separate dictated note~for this date of service dictated separately.~Patient seen individually. Discussed the patient with Nursing staff reviewed the chart.~Reviewed interim history and current functioning. Reviewed vital signs,~Labs/ Radiology~and current medications noted below. Continue current treatment with the changes noted in the dictated addendum note Assessment: Vital Signs/I&O: Vital Signs Date Time Temp Pulse Resp B/P (MAP) Pulse Ox O2 Delivery O2 Flow Rate FiO2 06/09/20 19:34 76 121/82 06/09/20 16:16 98.1 16 97 06/09/20 06:29 Room Air I & O 06/08/20 06/08/20 06/09/20 15:00 23:00 07:00 Intake Total 960 ml 1300 ml Balance 960 ml 1300 ml Labs: Laboratory Tests Test 06/09/20 06:41 Sodium Level 133 mmol/L (136-145) L Potassium Level 3.6 mmol/L (3.5-5.1) Chloride Level 98 mmol/L (98-107) Carbon Dioxide Level 28 mmol/L (21-32) Anion Gap 7 (6-14) Blood Urea Nitrogen 11 mg/dL (7-20) Creatinine 0.7 mg/dL (0.6-1.0) Estimated GFR (Cockcroft-Gault) 79.0 Glucose Level 91 mg/dL (70-99) Calcium Level 8.6 mg/dL (8.5-10.1) Current Medications: I have reviewed the current psychotropics carefully including drug interactions. Risk benefit ratio favors no change other than as noted in my dictated progress note. 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
[2020-06-10 06:17] VITALS: BP 165/90
[2020-06-10] MEDS: busPIRone 5 MG TABLET. PO SCH ×2 (08:22→12:49)
[2020-06-10] MEDS: LACTOBACILLUS RHAMNOSUS GG 1 CAPSULE. PO SCH ×2 (08:22→19:41)
[2020-06-10] MEDS: PANTOPRAZOLE 40 MG TABLET. PO SCH (08:22)
[2020-06-10] MEDS: METOPROLOL TART IMMED RELEASE 25 MG TABLET. PO SCH ×2 (08:22→19:42)
[2020-06-10] MEDS: ASPIRIN CHEWABLE 81 MG TABLET. PO SCH (08:22)
[2020-06-10] MEDS ORDERED: SERTRALINE 25 MG TABLET. PO SCH (09:00)
--- NOTE | 2020-06-10 11:16 | NUR ---
Patient got up to eat breakfast and then returned to bed. She was cooperative with assessment and compliant with medications. She prefers to take them crushed in vanilla pudding with a drink of water afterwards. Patient is not social with this nurse but is not unfriendly. She will say a few words when interacted with. Patient denies pain when asked. She has been calm, eating more and is using her walker to ambulate in her room. No agitation has been observed.
[2020-06-10 15:44] VITALS: BP 152/84
--- NOTE | 2020-06-10 21:43 | NUR ---
Nursing Note: Location of Patient during Assessment: Pt withdrawn to her room, sitting quietly on the side of her bed at shift change. Behaviors Mood and Affect this shift: Pt calm, cooperative, and interactive when approached. Medication Compliant: Compliant with medications administered crushed in pudding. Assessment Compliant: Cooperative and compliant with assessment, denies pain at this time. Response After Interventions: Pt resting quietly in bed with eyes closed at this time.
--- NOTE | 2020-06-10 22:04 | PDOC ---
Exam Note: [place] Note: Please also refer to the separate dictated note~for this date of service dictated separately.~Patient seen individually. Discussed the patient with Nursing staff reviewed the chart.~Reviewed interim history and current functioning. Reviewed vital signs,~Labs/ Radiology~and current medications noted below. Continue current treatment with the changes noted in the dictated addendum note Assessment: Vital Signs/I&O: Vital Signs Date Time Temp Pulse Resp B/P (MAP) Pulse Ox O2 Delivery O2 Flow Rate FiO2 06/10/20 19:42 68 152/84 06/10/20 15:44 98.3 17 95 06/09/20 06:29 Room Air I & O 06/09/20 06/09/20 06/10/20 15:00 23:00 07:00 Intake Total 600 ml 180 ml Balance 600 ml 180 ml Current Medications: Meds: Current Medications Medications (Trade) Dose Ordered Sig/Barbara Route PRN Reason Start Time Stop Time Status Last Admin Dose Admin Buspirone HCl (Buspar) 5 mg 0900,1300 PO 06/10/20 09:00 06/10/20 12:49 I have reviewed the current psychotropics carefully including drug interactions. Risk benefit ratio favors no change other than as noted in my dictated progress note. 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
[2020-06-11 06:26] VITALS: BP 136/83
--- NOTE | 2020-06-11 06:37 | PDOC ---
Exam Note: [place] Note: This note is a late entry for 06/09/2020 covers elements not covered in my initial note. Subjective: The patient was seen face to face in the evening of 06/09/2020. Discussed with nursing staff, reviewed the chart. We have stopped the patients Zoloft due to possible SIADH symptoms. She remains confused, withdrawn, little anxious at times. Review of Systems: Impaired ambulation. No CV, , pulmonary, eye, ENT system symptoms on review. Mental Status Exam: The patient is oriented to herself. Insight and judgment, recent and remote memory, attention and concentration, fund of knowledge is poor consistent with her diagnoses. Laboratory Data: Reviewed. Impression: Major neurocognitive disorder Alzheimer, vascular with delusion, depression, behavioral disturbance. Anxiety disorder unspecified. Impulse c ontrol disorder unspecified. Plan: No change from initial note. We may need to increase BuSpar further. Assessment: Vital Signs/I&O: Vital Signs Date Time Temp Pulse Resp B/P (MAP) Pulse Ox O2 Delivery O2 Flow Rate FiO2 06/11/20 06:26 97.8 79 14 136/83 (100) 98 06/09/20 06:29 Room Air I & O 06/10/20 06/10/20 06/11/20 15:00 23:00 07:00 Intake Total 260 ml 120 ml Balance 260 ml 120 ml Current Medications: Meds: Current Medications Medications (Trade) Dose Ordered Sig/Barbara Route PRN Reason Start Time Stop Time Status Last Admin Dose Admin Buspirone HCl (Buspar) 5 mg 0900,1300 PO 06/10/20 09:00 06/10/20 12:49 I have reviewed the current psychotropics carefully including drug interactions. Risk benefit ratio favors no change other than as noted in my dictated progress note. 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
--- NOTE | 2020-06-11 06:52 | PDOC ---
Exam Note: [place] Note: This note is a late entry for 06/10/2020 covers elements not covered in my initial note. Subjective: The patient was seen face to face in the evening of 06/10/2020 with Renita OAKLEY. Discussed with nursing staff, reviewed the chart. She slept 7-1/2 hours previous night. She spends much time in her bed. Review of Systems: Ambulates with walker. No CV, , pulmonary, eye, ENT system symptoms on review. Mental Status Exam: The patient is oriented to herself. Insight and judgment, recent and remote memory, attention and concentration, fund of knowledge is poor consistent with her diagnoses. Laboratory Data: Reviewed. Impression: Major neurocognitive disorder Alzheimer, vascular with delusion, depression, behavioral disturbance. Anxiety disorder unspecified. Impulse control disorder unspecified. Plan: No change from initial note. We have initiated BuSpar. We may need to adjust this. We are avoiding Seroquel and SSRIs, the latter because of the low sodium possibly attributed to this. Assessment: Vital Signs/I&O: Vital Signs Date Time Temp Pulse Resp B/P (MAP) Pulse Ox O2 Delivery O2 Flow Rate FiO2 06/11/20 06:26 97.8 79 14 136/83 (100) 98 06/09/20 06:29 Room Air I & O 06/10/20 06/10/20 06/11/20 15:00 23:00 07:00 Intake Total 260 ml 120 ml Balance 260 ml 120 ml Current Medications: Meds: Current Medications Medications (Trade) Dose Ordered Sig/Barbara Route PRN Reason Start Time Stop Time Status Last Admin Dose Admin Buspirone HCl (Buspar) 5 mg 0900,1300 PO 06/10/20 09:00 06/10/20 12:49 I have reviewed the current psychotropics carefully including drug interactions. Risk benefit ratio favors no change other than as noted in my dictated progress note. 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
[2020-06-11] MEDS: busPIRone 5 MG TABLET. PO SCH ×2 (08:32→13:00)
[2020-06-11] MEDS: METOPROLOL TART IMMED RELEASE 25 MG TABLET. PO SCH ×2 (08:32→20:46)
[2020-06-11] MEDS: LACTOBACILLUS RHAMNOSUS GG 1 CAPSULE. PO SCH ×2 (08:32→19:46)
[2020-06-11] MEDS: PANTOPRAZOLE 40 MG TABLET. PO SCH (08:32)
[2020-06-11] MEDS: ASPIRIN CHEWABLE 81 MG TABLET. PO SCH (08:32)
--- NOTE | 2020-06-11 10:57 | NUR ---
WEEKLY ACTIVITY THERAPY NOTE Date of Admission: 05/27 Date of AT Assessment: 05/28 Precipitating behaviors that initiated intake and admission:impulsive, pulls on lines and cords, fidgety, periods of agitation, daughter reports pt to be aggressive at home, putting self on floor Goal aimed: to increase time management and socialization Initial Goal: Pt will participate in at least two individual Activity Therapy sessions per week. Weekly progress towards goal: achieved through group Group participation level: 1 full, 1 mod Weekly highlights: Joined group and followed all exercise moves last 06/04 Behaviors observed: generally withdrawn to room, usually laying in bed, calm, minimal engagement with staff or peers Plan: no change to goal due to pending discharge of 06/15 Beneficial adaptations:
--- NOTE | 2020-06-11 10:57 | TX PLAN ---
Interdisciplinary Tx Plan Admission Information May 27, 2020 at 10:16 Legal Status (on Admission): Voluntary DPOA/Guardian Name: Sara Butler Contact Verified Code Status: DNR Allergies: Coded Allergies: No Known Drug Allergies (Unverified , 05/22/20) Diagnoses Primary Diagnosis: Major Neurocognitive D/O Reasons for Admission: Agitated, Confusion/Disoriented, Poor impulse control, Other Problem in Patient's Words: She has continued to decline since January of this year Additional Admission Comments: According to the intake, pt was on the medical floor being impulsive, pulling lines and cords in her room, fidgety, having periods of agitation. Dtr reports that at home pt was aggressive towards her and putting herself on the floor and at times manic. Problems Active Problems: Restless Minor sundowning Inactive Problems: Medication compliance Pt Strengths/Limitations Ability for Hitchcock: Poor Cognitive Functioning/Ability: Fair Communication Skills/Ability: Fair Financial Resources: Fair Insight/Judgement: Poor Intellectual Ability: Fair Physical Health: Fair Social Skills: Fair Stability in Family: Fair Stability in School/Work: Poor Verbal Skills: Fair Discharge Criteria Discharge Criteria: Able meet basic life need, Adequate arrangements @DC, Improved behavior, Improved mood/thought Preliminary Discharge Plan Preliminary DC Plan: Current Living Arrange. Special Precautions Fall Risk: Moderate Initial D/C Plan Pt dtr wishes for pt to return home once stable Identified Discharge Needs: Mental health services Currently Utilized Resources Currently Utilized Resources/P: Primary Care Physician Referrals Community Resources: Psychiatry Behavioral Health nurse/services Identified Problems/Hx/Goals Objectives/Short-Term Goals Short Term Goals: Medication Stabilization, Monitor Med Effects, Promote Coping Skill, Other Short Term Goals in Patient's: Medication assessment and behavioral managment Interventions/Frequency Staff Interventions/Frequency&: Psychiatrist to assess pt at least 3x per week for medication management. Social work to assess pt at least 2x per week for discharge planning, care needs and barriers. Nursing to assess behaviors, medication and complete 15 minute checks daily. 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 Education: Pt graduated high school; 12th grade completed Community Follow-up Primary Care Physician Referral to [facility] at discharge Treatment Plan Explained Patient/Top Case Assembler had this treatment plan explained to him/her as indicated by the signature below and has been given the opportunity to ask questions and make suggestions: Date: Patient/Top Case Assembler Signature: Status Update Update Pt is eating roughly 50% of meals and sleeping on average 6.5 hours per night. Pt did not want to eat breakfast this morning but was compliant with medications and the nursing assessment. Pt is withdrawn to her room and does not talk to staff much; pt does not attend any groups. Pt will start Wellbutrin XL 150mg daily. At this time pt will look at discharging back home with her daughter and services through [facility] on Monday06/15/2020. JANNA MARTIN Jun 11, 2020 10:57
--- NOTE | 2020-06-11 13:13 | NUR ---
Pt withdrawn to room, laying in bed with light off and shades drawn. She is medication compliant with medications crushed in vanilla pudding. She is not interactive and does not answer this nurse when nurse asks her questions. Pt does not appear to be in any pain/discomfort. Pt ambulates with a walker and is able to take herself to the bathroom as needed.
[2020-06-11 15:34] VITALS: BP 95/57
--- NOTE | 2020-06-11 16:21 | NUR ---
Patient laying in bed most of the day. She will sit up to eat. Medications crushed in vanilla pudding. Patient cooperative, compliant and withdrawn. She denies pain when asked.
--- NOTE | 2020-06-11 21:10 | NUR ---
Nursing Note Pt in bed speaks in a whisper, her sheets look as though she blew her nose on them. I questioned her to see her response, she just stared at me without much recognition at first, I again asked if she used her sheet as a tissue, or was that food on her sheets. She responded with a snappy retort "How the hell should I know, they haven't changed my sheets since I got here!!!" in a full voice this time no whisper. I told her we would be happy to change her linens later. She gave me the eye roll, and looked the other way. [facility], held her metoprolol secondary to low blood pressure.
--- NOTE | 2020-06-11 22:11 | PDOC ---
Exam Note: Austin Note: Please also refer to the separate dictated note~for this date of service dictated separately.~Patient seen individually. Discussed the patient with Nursing staff reviewed the chart.~Reviewed interim history and current functioning. Reviewed vital signs,~Labs/ Radiology~and current medications noted below. Continue current treatment with the changes noted in the dictated addendum note Assessment: Vital Signs/I&O: Vital Signs Date Time Temp Pulse Resp B/P (MAP) Pulse Ox O2 Delivery O2 Flow Rate FiO2 06/11/20 20:46 71 95/57 06/11/20 15:34 98.6 16 97 06/09/20 06:29 Room Air I & O 06/10/20 06/10/20 06/11/20 15:00 23:00 07:00 Intake Total 260 ml 120 ml Balance 260 ml 120 ml Current Medications: I have reviewed the current psychotropics carefully including drug interactions. Risk benefit ratio favors no change other than as noted in my dictated progress note. 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
[2020-06-12 06:44] VITALS: BP 122/76
[2020-06-12] MEDS: LACTOBACILLUS RHAMNOSUS GG 1 CAPSULE. PO SCH ×2 (08:35→21:27)
[2020-06-12] MEDS: METOPROLOL TART IMMED RELEASE 25 MG TABLET. PO SCH ×2 (08:35→21:27)
[2020-06-12] MEDS: PANTOPRAZOLE 40 MG TABLET. PO SCH (08:35)
[2020-06-12] MEDS: busPIRone 5 MG TABLET. PO SCH ×3 (08:36→13:35)
[2020-06-12] MEDS: buPROPion XL 150 MG TAB.ER.24H PO SCH (08:36)
[2020-06-12] MEDS: ASPIRIN CHEWABLE 81 MG TABLET. PO SCH (08:36)
--- NOTE | 2020-06-12 10:18 | NUR ---
Patient is laying in bed. She ate approximately 4 bites of breakfast. Nurse gave medications to patient crushed in vanilla pudding. She was compliant. Patient does not interact with this nurse and nurse had to ask questions multiple times before patient would answer. Patient speaking in a whisper. She started Wellbutrin XL this morning.
--- NOTE | 2020-06-12 13:16 | NUR ---
[facility] Social Work Discharge Planning Form Patient Name SILVESTRE ALVARADO Admit Date: 27 May 2020 DISCHARGE PLAN Discharge Destination: Home with daughter Care Assessment: N/A Level II Assessment: N/A Transportation: Pt dtr to pick pt up around 1100. Special Instructions/Notes: Please fax discharge medication list, discharge orders and discharge summary to the fax number(s) listed below. DISCHARGE TO HOME: Address: [address] [place] [id number] Responsible Libertarian: Pt dtrSara Pharmacy: [facility] Contact Information: [address]; [place] [address] Primary Care Follow Up: Dr. Melissa Contact Information: [facility] [place] [address] Appointment: Monday, June 22, 2020 @ 11:00AM Home Health: [facility] Contact Information: [facility] [place] [address] Appointment: Can start services within 48 hours of discharge.
--- NOTE | 2020-06-12 13:30 | NUR ---
Patient refusing buspar, stating she has taken too many medications today. Will continue to monitor.
--- NOTE | 2020-06-12 13:52 | NUR ---
RADHA contacted pt dtr, Sara to go over final discharge plans. RADHA has made all follow-up appts for pt and sent over a referral for HH/psychiatric nursing to continue to follow up with pt and pt family. Pt dtr asked about pt sleep habits and RADHA informed her that pt is actually sleeping 7-10 most nights; in which she was happy to hear because at home sleep was a major issue. Sara will still plan to pick pt up around 1100. No other concerns were noted.
[2020-06-12 16:01] VITALS: BP 130/76
--- NOTE | 2020-06-12 21:59 | PDOC ---
Exam Note: Austin Note: Please also refer to the separate dictated note~for this date of service dictated separately.~Patient seen individually. Discussed the patient with Nursing staff reviewed the chart.~Reviewed interim history and current functioning. Reviewed vital signs,~Labs/ Radiology~and current medications noted below. Continue current treatment with the changes noted in the dictated addendum note Assessment: Vital Signs/I&O: Vital Signs Date Time Temp Pulse Resp B/P (MAP) Pulse Ox O2 Delivery O2 Flow Rate FiO2 06/12/20 21:27 61 130/76 06/12/20 16:01 97.7 18 93 06/09/20 06:29 Room Air I & O 06/11/20 06/11/20 06/12/20 15:00 23:00 07:00 Intake Total 560 ml 200 ml Balance 560 ml 200 ml Current Medications: Meds: Current Medications Medications (Trade) Dose Ordered Sig/Barbara Route PRN Reason Start Time Stop Time Status Last Admin Dose Admin Bupropion HCl (Wellbutrin Xl) 150 mg DAILY PO 06/12/20 09:00 06/12/20 08:36 I have reviewed the current psychotropics carefully including drug interactions. Risk benefit ratio favors no change other than as noted in my dictated progress note. 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
[2020-06-13 06:09] VITALS: BP 118/70
--- NOTE | 2020-06-13 06:36 | PDOC ---
Exam Note: Austin Note: This note is a late entry for DOS 06/09/2020 and an addendum to the progress note dictated earlier for 06/09/2020. Subjective: The patient was seen face to face in the evening of 06/09/2020. She slept 7-1/2 hours. Nursing report with Ella OAKLEY. She has been more interactive with staff at times, other times withdrawn. Rest information unchanged as previously dictated. Plan: We will add BuSpar 5 mg 9 a.m. and 1 p.m. Rest psychotropics unchanged from initial note. Assessment: Vital Signs/I&O: Vital Signs Date Time Temp Pulse Resp B/P (MAP) Pulse Ox O2 Delivery O2 Flow Rate FiO2 06/13/20 06:09 98.0 80 16 118/70 (86) 93 06/09/20 06:29 Room Air I & O 06/12/20 06/12/20 06/13/20 15:00 23:00 07:00 Intake Total 365 ml 240 ml 0 ml Balance 365 ml 240 ml 0 ml Current Medications: Meds: Current Medications Medications (Trade) Dose Ordered Sig/Barbara Route PRN Reason Start Time Stop Time Status Last Admin Dose Admin Bupropion HCl (Wellbutrin Xl) 150 mg DAILY PO 06/12/20 09:00 06/12/20 08:36 I have reviewed the current psychotropics carefully including drug interactions. Risk benefit ratio favors no change other than as noted in my dictated progress note. 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
--- NOTE | 2020-06-13 06:51 | PDOC ---
Exam Note: Austin Note: This note is a late entry for 06/11/2020 covers elements not covered in my initial note. Subjective: The patient was seen face to face in the morning of 06/11/2020 for treatment meeting with Carly Simental Nicky (social service staff), Darby, Activity Therapy, and Renita OAKLEY. Discussed with nursing staff, reviewed the chart. She was also seen face to face in the evening of 06/11/2020. She slept 8-1/2 hours previous night. She is not very verbally interactive but not aggressive, quite withdrawn, isolative, depressed. Review of Systems: Ambulates with walker. No CV, , pulmonary, eye, ENT system symptoms on review. Mental Status Exam: Reasonably oriented. Insight and judgment, recent and remote memory, attention and concentration, fund of knowledge is poor consistent with her diagnoses. Laboratory Data: Reviewed. Impression: Major neurocognitive disorder Alzheimer, vascular with delusion, depression, behavioral disturbance. Anxiety disorder unspecified. Impulse control disorder unspecified. Plan: No change from initial note. The patient was quite depressed, withdrawn. She was unable to tolerate SSRIs with hyponatremia. We will start Wellbutrin XL 150 mg a day in the morning. Continue rest unchanged for now. Assessment: Vital Signs/I&O: Vital Signs Date Time Temp Pulse Resp B/P (MAP) Pulse Ox O2 Delivery O2 Flow Rate FiO2 06/13/20 06:09 98.0 80 16 118/70 (86) 93 06/09/20 06:29 Room Air I & O 06/12/20 06/12/20 06/13/20 14:59 22:59 06:59 Intake Total 365 ml 240 ml 0 ml Balance 365 ml 240 ml 0 ml Current Medications: Meds: Current Medications Medications (Trade) Dose Ordered Sig/Barbara Route PRN Reason Start Time Stop Time Status Last Admin Dose Admin Bupropion HCl (Wellbutrin Xl) 150 mg DAILY PO 06/12/20 09:00 06/12/20 08:36 I have reviewed the current psychotropics carefully including drug interactions. Risk benefit ratio favors no change other than as noted in my dictated progress note. 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
--- NOTE | 2020-06-13 07:20 | PDOC ---
Exam Note: Austin Note: This note is a late entry for 06/12/2020 covers elements not covered in my initial note. Subjective: The patient was seen face to face in the evening of 06/12/2020 with John OAKLEY. Discussed with nursing staff, reviewed the chart. The patient slept 10 hours previous night. She has been withdrawn, confused. Oral intake is poor. At times she comes out to the hallway, goes right back to her room, shortly thereafter refused 1 p.m. BuSpar and took it later. Review of Systems: Ambulates with walker. No CV, , pulmonary, eye, ENT system symptoms on review. Reliability poor. Mental Status Exam: Reasonably. Insight and judgment, recent and remote memory, attention and concentration, fund of knowledge is poor consistent with her diagnoses. Laboratory Data: Reviewed. Impression: Major neurocognitive disorder Alzheimer, vascular with delusion, depression, behavioral disturbance. Anxiety disorder unspecified. Impulse control disorder unspecified. Plan: No change from initial note. We may need to adjust BuSpar further as clinically indicated. Assessment: Vital Signs/I&O: Vital Signs Date Time Temp Pulse Resp B/P (MAP) Pulse Ox O2 Delivery O2 Flow Rate FiO2 06/13/20 06:09 98.0 80 16 118/70 (86) 93 06/09/20 06:29 Room Air I & O 06/12/20 06/12/20 06/13/20 15:00 23:00 07:00 Intake Total 365 ml 240 ml 0 ml Balance 365 ml 240 ml 0 ml Current Medications: Meds: Current Medications Medications (Trade) Dose Ordered Sig/Barbara Route PRN Reason Start Time Stop Time Status Last Admin Dose Admin Bupropion HCl (Wellbutrin Xl) 150 mg DAILY PO 06/12/20 09:00 06/12/20 08:36 I have reviewed the current psychotropics carefully including drug interactions. Risk benefit ratio favors no change other than as noted in my dictated progress note. 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
[2020-06-13] MEDS: ASPIRIN CHEWABLE 81 MG TABLET. PO SCH (09:15)
[2020-06-13] MEDS: PANTOPRAZOLE 40 MG TABLET. PO SCH (09:15)
[2020-06-13] MEDS: LACTOBACILLUS RHAMNOSUS GG 1 CAPSULE. PO SCH ×2 (09:15→21:59)
[2020-06-13] MEDS: buPROPion XL 150 MG TAB.ER.24H PO SCH (09:15)
[2020-06-13] MEDS: METOPROLOL TART IMMED RELEASE 25 MG TABLET. PO SCH ×2 (09:16→22:00)
[2020-06-13] MEDS: busPIRone 5 MG TABLET. PO SCH ×2 (09:16→12:52)
--- NOTE | 2020-06-13 11:50 | NUR ---
Pt is calm, cooperative and compliant. No agitation, no aggression, no hallucinations or delusions noted. Pt is up providing self care such as brushing her teeth and self toileting. She makes good eye contact, smiles, and engages in appropriate conversation.
--- NOTE | 2020-06-13 12:45 | NUR ---
Pt refused 1300 medication stating "I don't have depression." Pt then pointed to nurses computer and asked "Do I have to take that test?" Nurse reassured pt there was no test today. Pt is quietly resting in bed.
[2020-06-13 16:33] VITALS: BP 127/83
[2020-06-13] MEDS: traZODone 100 MG TABLET. PO PRN (21:59)
--- NOTE | 2020-06-13 22:09 | PDOC ---
Exam Note: Austin Note: Please also refer to the separate dictated note~for this date of service dictated separately.~Patient seen individually. Discussed the patient with Nursing staff reviewed the chart.~Reviewed interim history and current functioning. Reviewed vital signs,~Labs/ Radiology~and current medications noted below. Continue current treatment with the changes noted in the dictated addendum note Assessment: Vital Signs/I&O: Vital Signs Date Time Temp Pulse Resp B/P (MAP) Pulse Ox O2 Delivery O2 Flow Rate FiO2 06/13/20 22:00 69 127/83 06/13/20 16:33 98.2 18 96 06/09/20 06:29 Room Air I & O 06/12/20 06/12/20 06/13/20 15:00 23:00 07:00 Intake Total 365 ml 240 ml 0 ml Balance 365 ml 240 ml 0 ml Current Medications: I have reviewed the current psychotropics carefully including drug interactions. Risk benefit ratio favors no change other than as noted in my dictated progress note. 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
[2020-06-14] MEDS: traZODone 100 MG TABLET. PO PRN ×2 (00:34→20:20)
--- NOTE | 2020-06-14 04:56 | NUR ---
Nursing Note The patient was located in her room laying in bed when approached for her assessment and medication pass. The patient took her medication crushed in pudding. The patient received PRN Trazodone @ HS per PRN order. the patient was cooperative during her assessment. The patient is currently sleeping in her room.
[2020-06-14 06:04] VITALS: BP 126/70
[2020-06-14] MEDS: ASPIRIN CHEWABLE 81 MG TABLET. PO SCH (08:11)
[2020-06-14] MEDS: buPROPion XL 150 MG TAB.ER.24H PO SCH (08:11)
[2020-06-14] MEDS: busPIRone 5 MG TABLET. PO SCH ×2 (08:12→12:46)
[2020-06-14] MEDS: METOPROLOL TART IMMED RELEASE 25 MG TABLET. PO SCH ×2 (08:12→20:21)
[2020-06-14] MEDS: PANTOPRAZOLE 40 MG TABLET. PO SCH (08:12)
[2020-06-14] MEDS: LACTOBACILLUS RHAMNOSUS GG 1 CAPSULE. PO SCH ×2 (08:12→20:20)
[2020-06-14 09:55] LABS: BASO # 0.1 x10^3/uL (0.0-0.2); BASO % 2 % (0-3); EOS % 1 % (0-3); HEMATOCRIT 34.1 % (36.0-47.0); HEMOGLOBIN 11.5 g/dL (12.0-15.5); LYMPH # 0.7 x10^3/uL (1.0-4.8); LYMPH % 14 % (24-48); MEAN CORPUSCULAR HEMOGLOBIN 31 pg (25-35); MEAN CORPUSCULAR HGB CONC 34 g/dL (31-37); MEAN CORPUSCULAR VOLUME 91 fL (79-100); MONO # 0.5 x10^3/uL (0.0-1.1); MONO % 11 % (0-9); NEUT # 3.5 x10^3uL (1.8-7.7); NEUT % 73 % (31-73); PLATELET COUNT 251 x10^3/uL (140-400); RED BLOOD COUNT 3.77 x10^6/uL (3.50-5.40); RED CELL DISTRIBUTION WIDTH 14.5 % (11.5-14.5); WHITE BLOOD COUNT 4.8 x10^3/uL (4.0-11.0)
--- NOTE | 2020-06-14 10:04 | NUR ---
Pt is calm, cooperative and compliant. No agitation, no aggression, no hallucinations or delusions noted. She is compliant with her medication and assessment.
[2020-06-14 10:17] LABS: ALBUMIN 2.8 g/dL (3.4-5.0); ALBUMIN/GLOBULIN RATIO 0.9 (1.0-1.7); CALCIUM 8.8 mg/dL (8.5-10.1); CREATININE 0.9 mg/dL (0.6-1.0); GFR 59.1; POTASSIUM 3.2 mmol/L (3.5-5.1); TOTAL BILIRUBIN 0.4 mg/dL (0.2-1.0); TOTAL PROTEIN 5.9 g/dL (6.4-8.2)
[2020-06-14 16:09] VITALS: BP 145/82
[2020-06-14] MEDS ORDERED: METO50TA6 PO (18:11)
[2020-06-14] MEDS ORDERED: ACET325T9 PO (18:15)
[2020-06-14] MEDS ORDERED: BISA10SU55 RC (18:16)
[2020-06-14] MEDS ORDERED: MELA3TAB4 PO (18:18)
[2020-06-14] MEDS ORDERED: POLY17PO5 PO (18:18)
[2020-06-14] MEDS ORDERED: BUPR150T15 PO (18:19)
[2020-06-14] MEDS ORDERED: BUSP5TAB PO (18:20)
[2020-06-15 05:53] VITALS: BP 118/64
--- NOTE | 2020-06-15 06:47 | PDOC ---
Exam Note: Austin Note: This note is a late entry for 06/13/2020 covers elements not covered in my initial note. Subjective: The patient was seen face to face in the evening of 06/13/2020 with Jordyn OAKLEY. Discussed with nursing staff, reviewed the chart. The patient slept 11 hours previous night. She did well in the morning. She was more awake and alert, bright, conversational, refused 1 p.m. meds and then was irritable. Review of Systems: No CV, , pulmonary, eye, ENT system symptoms on review. Mental Status Exam: Reasonably. Insight and judgment, recent and remote memory, attention and concentration, fund of knowledge is poor consistent with her diagnoses. Laboratory Data: Reviewed. Impression: Major neurocognitive disorder Alzheimer, vascular with delusion, depression, behavioral disturbance. Anxiety disorder unspecified. Impulse control disorder unspecified. Plan: No change from initial note. Assessment: Vital Signs/I&O: Vital Signs Date Time Temp Pulse Resp B/P (MAP) Pulse Ox O2 Delivery O2 Flow Rate FiO2 06/15/20 05:53 97.8 62 16 118/64 (82) 94 I & O 06/14/20 06/14/20 06/15/20 15:00 23:00 07:00 Intake Total 720 ml 580 ml Balance 720 ml 580 ml Labs: Laboratory Tests Test 06/14/20 09:25 White Blood Count 4.8 x10^3/uL (4.0-11.0) Red Blood Count 3.77 x10^6/uL (3.50-5.40) Hemoglobin 11.5 g/dL (12.0-15.5) L Hematocrit 34.1 % (36.0-47.0) L Mean Corpuscular Volume 91 fL (79-100) Mean Corpuscular Hemoglobin 31 pg (25-35) Mean Corpuscular Hemoglobin Concent 34 g/dL (31-37) Red Cell Distribution Width 14.5 % (11.5-14.5) Platelet Count 251 x10^3/uL (140-400) Neutrophils (%) (Auto) 73 % (31-73) Lymphocytes (%) (Auto) 14 % (24-48) L Monocytes (%) (Auto) 11 % (0-9) H Eosinophils (%) (Auto) 1 % (0-3) Basophils (%) (Auto) 2 % (0-3) Neutrophils # (Auto) 3.5 x10^3uL (1.8-7.7) Lymphocytes # (Auto) 0.7 x10^3/uL (1.0-4.8) L Monocytes # (Auto) 0.5 x10^3/uL (0.0-1.1) Eosinophils # (Auto) 0.0 x10^3/uL (0.0-0.7) Basophils # (Auto) 0.1 x10^3/uL (0.0-0.2) Sodium Level 134 mmol/L (136-145) L Potassium Level 3.2 mmol/L (3.5-5.1) L Chloride Level 99 mmol/L (98-107) Carbon Dioxide Level 27 mmol/L (21-32) Anion Gap 8 (6-14) Blood Urea Nitrogen 19 mg/dL (7-20) Creatinine 0.9 mg/dL (0.6-1.0) Estimated GFR (Cockcroft-Gault) 59.1 BUN/Creatinine Ratio 21 (6-20) H Glucose Level 162 mg/dL (70-99) H Calcium Level 8.8 mg/dL (8.5-10.1) Total Bilirubin 0.4 mg/dL (0.2-1.0) Aspartate Amino Transferase (AST) 14 U/L (15-37) L Alanine Aminotransferase (ALT) 14 U/L (14-59) Alkaline Phosphatase 119 U/L (46-116) H Total Protein 5.9 g/dL (6.4-8.2) L Albumin 2.8 g/dL (3.4-5.0) L Albumin/Globulin Ratio 0.9 (1.0-1.7) L Current Medications: I have reviewed the current psychotropics carefully including drug interactions. Risk benefit ratio favors no change other than as noted in my dictated progress note. 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
--- NOTE | 2020-06-15 07:05 | PDOC ---
Exam Note: [place] Note: This note is a late entry for 06/14/2020 covers elements not covered in my initial note. Subjective: The patient was seen face to face in the evening of 06/14/2020 with Jordyn OAKLEY. Discussed with nursing staff, reviewed the chart. The patient remains confused, less sedated, not aggressive. Review of Systems: Ambulates with walker. No CV, , pulmonary, eye, ENT system symptoms on review. Reliability poor. Mental Status Exam: Reasonably. Insight and judgment, recent and remote memory, attention and concentration, fund of knowledge is poor consistent with her diagnoses. Laboratory Data: Reviewed. Impression: Major neurocognitive disorder Alzheimer, vascular with delusion, depression, behavioral disturbance. Anxiety disorder unspecified. Impulse control disorder unspecified. Plan: No change from initial note. Assessment: Vital Signs/I&O: Vital Signs Date Time Temp Pulse Resp B/P (MAP) Pulse Ox O2 Delivery O2 Flow Rate FiO2 06/15/20 05:53 97.8 62 16 118/64 (82) 94 I & O 06/14/20 06/14/20 06/15/20 15:00 23:00 07:00 Intake Total 720 ml 580 ml Balance 720 ml 580 ml Labs: Laboratory Tests Test 06/14/20 09:25 White Blood Count 4.8 x10^3/uL (4.0-11.0) Red Blood Count 3.77 x10^6/uL (3.50-5.40) Hemoglobin 11.5 g/dL (12.0-15.5) L Hematocrit 34.1 % (36.0-47.0) L Mean Corpuscular Volume 91 fL (79-100) Mean Corpuscular Hemoglobin 31 pg (25-35) Mean Corpuscular Hemoglobin Concent 34 g/dL (31-37) Red Cell Distribution Width 14.5 % (11.5-14.5) Platelet Count 251 x10^3/uL (140-400) Neutrophils (%) (Auto) 73 % (31-73) Lymphocytes (%) (Auto) 14 % (24-48) L Monocytes (%) (Auto) 11 % (0-9) H Eosinophils (%) (Auto) 1 % (0-3) Basophils (%) (Auto) 2 % (0-3) Neutrophils # (Auto) 3.5 x10^3uL (1.8-7.7) Lymphocytes # (Auto) 0.7 x10^3/uL (1.0-4.8) L Monocytes # (Auto) 0.5 x10^3/uL (0.0-1.1) Eosinophils # (Auto) 0.0 x10^3/uL (0.0-0.7) Basophils # (Auto) 0.1 x10^3/uL (0.0-0.2) Sodium Level 134 mmol/L (136-145) L Potassium Level 3.2 mmol/L (3.5-5.1) L Chloride Level 99 mmol/L (98-107) Carbon Dioxide Level 27 mmol/L (21-32) Anion Gap 8 (6-14) Blood Urea Nitrogen 19 mg/dL (7-20) Creatinine 0.9 mg/dL (0.6-1.0) Estimated GFR (Cockcroft-Gault) 59.1 BUN/Creatinine Ratio 21 (6-20) H Glucose Level 162 mg/dL (70-99) H Calcium Level 8.8 mg/dL (8.5-10.1) Total Bilirubin 0.4 mg/dL (0.2-1.0) Aspartate Amino Transferase (AST) 14 U/L (15-37) L Alanine Aminotransferase (ALT) 14 U/L (14-59) Alkaline Phosphatase 119 U/L (46-116) H Total Protein 5.9 g/dL (6.4-8.2) L Albumin 2.8 g/dL (3.4-5.0) L Albumin/Globulin Ratio 0.9 (1.0-1.7) L Current Medications: I have reviewed the current psychotropics carefully including drug interactions. Risk benefit ratio favors no change other than as noted in my dictated progress note. 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
[2020-06-15] MEDS: PANTOPRAZOLE 40 MG TABLET. PO SCH (09:03)
[2020-06-15 09:04] VITALS: BP 118/64
[2020-06-15] MEDS: buPROPion XL 150 MG TAB.ER.24H PO SCH (09:04)
[2020-06-15] MEDS: METOPROLOL TART IMMED RELEASE 25 MG TABLET. PO SCH (09:04)
[2020-06-15] MEDS: LACTOBACILLUS RHAMNOSUS GG 1 CAPSULE. PO SCH (09:04)
[2020-06-15] MEDS: ASPIRIN CHEWABLE 81 MG TABLET. PO SCH (09:04)
[2020-06-15] MEDS: busPIRone 5 MG TABLET. PO SCH (09:04)
--- NOTE | 2020-06-15 11:30 | NUR ---
Transition Record was faxed to follow-up provider with the following elements: Reason for admission, procedures, tests, principal diagnosis, pending studies, patient instructions, 20/03 contact information for unit, phone number to obtain pending test results, plan for follow-up care, physician follow-up, advanced directive information, and medication list with dose, duration and instructions. This information was included in the following documents: History and physical, lab results, study results, progress notes, social work planning form, DC instruction form, patient visit summary, and medication reconciliation form. Date & time record faxed: 06/15/2020 0150; 06/15/2020 0148 Record faxed to: Dr. Belén Olmedo [facility] Record discussed with/ report given to: Daughter
--- NOTE | 2020-06-15 15:02 | NUR ---
Medications called in to [facility] in [place]. Spoke to Nga.
--- NOTE | 2020-06-15 22:00 | PDOC ---
Exam Note: [place] Note: Please also refer to the separate dictated note~for this date of service dictated separately.~Patient seen individually. Discussed the patient with Nursing staff reviewed the chart.~Reviewed interim history and current functioning. Reviewed vital signs,~Labs/ Radiology~and current medications noted below. Continue current treatment with the changes noted in the dictated addendum note Assessment: Vital Signs/I&O: Vital Signs Date Time Temp Pulse Resp B/P (MAP) Pulse Ox O2 Delivery O2 Flow Rate FiO2 06/15/20 09:04 62 118/64 06/15/20 05:53 97.8 16 94 I & O 06/14/20 06/14/20 06/15/20 15:00 23:00 07:00 Intake Total 720 ml 580 ml Balance 720 ml 580 ml Current Medications: I have reviewed the current psychotropics carefully including drug interactions. Risk benefit ratio favors no change other than as noted in my dictated progress note. 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
--- NOTE | 2020-06-17 07:20 | PDOC ---
Exam Note: [place] Note: This note is a late entry for 06/15/2020 covers elements not covered in my initial note. Subjective: The patient was seen face to face in the evening of 06/15/2020 with Jordyn OAKLEY. Discussed with nursing staff, reviewed the chart. The patient slept 7-1/2 hours previous night. According to nursing report, the patient is doing much better. She has been more awake during the day, little more interactive, not agitated. Review of Systems: No CV, , pulmonary, eye, ENT system symptoms on review. Reliability poor. Mental Status Exam: Reasonably oriented. She is not very verbal, interactive as I met with her in her room in the evening. Insight and judgment, recent and remote memory, attention and concentration, fund of knowledge is poor consistent with her diagnoses. Laboratory Data: Reviewed. Impression: Major neurocognitive disorder Alzheimer, vascular with delusion, depression, behavioral disturbance. Anxiety disorder unspecified. Impulse control disorder unspecified. Plan: No change from initial note. Assessment: Vital Signs/I&O: Vital Signs Date Time Temp Pulse Resp B/P (MAP) Pulse Ox O2 Delivery O2 Flow Rate FiO2 06/15/20 09:04 62 118/64 06/15/20 05:53 97.8 16 94 Current Medications: I have reviewed the current psychotropics carefully including drug interactions. Risk benefit ratio favors no change other than as noted in my dictated progress note. 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
--- NOTE | 2020-06-17 21:19 | DS ---
DATE OF DISCHARGE: 06/15/2020 PSYCHIATRIC PROGRESS NOTE This late entry date of service 06/15/2020 covers elements not covered in my initial note. REASON FOR ADMISSION: Please refer to the admission history for details. Briefly, the patient is an 89-year-old female who was living at home with her daughter and referred for inpatient psychiatric stabilization on account of worsening dementia, Alzheimer's vascular type. The patient had been extremely impulsive, aggressive with the daughter and unmanageable. She had refused to eat. Appeared extremely overactive, impulsive. At one point, the daughter found the patient at home unresponsive. The patient was unable to be cared for at home safely by the daughter. Behaviors were extremely disruptive, out of control, resulting in this referral. Initially, she was on the medical/surgical floor until a repeat COVID screen was negative and then transitioned to [facility]. SIGNIFICANT FINDINGS AND CLINICAL COURSE: Following admission, the patient was seen daily individually by myself from a psychiatric standpoint. Medical followup per Dr. Shipman/Dr Foster. The patient remained extremely agitated and at other times withdrawn, depressed. Adjustments were made in her psychotropic. She seemed to respond to a combination of Wellbutrin-XL 150 mg a day, Zyprexa p.r.n., trazodone 100 mg at bedtime p.r.n., Ativan p.r.n., melatonin 3 mg at bedtime p.r.n., BuSpar 5 mg twice a day. REVIEW OF SYSTEMS: Prior to discharge on 06/15/2020, no CV, , pulmonary, eye, ENT system symptoms on review. Reliability poor. MENTAL STATUS EXAM: Oriented to herself. Insight, judgment, recent and remote memory, attention, concentration, fund of knowledge poor, consistent with her diagnosis. CONDITION AT DISCHARGE: Improved. FINAL DIAGNOSES: Major neurocognitive disorder, Alzheimer, vascular with delusion, depression, behavioral disturbance; anxiety disorder, unspecified; impulse control disorder, unspecified. Rest unchanged from admission. DISCHARGE MEDICATIONS: Please refer to the [facility]AD. DISCHARGE INSTRUCTIONS: Outpatient psychiatric and medical followup to be arranged by the daughter and arrangements were made by the social service staff for this prior to discharge. Time for discharge day management greater than 30 minutes. FRANK NYE MD DR: [email or web address]/eva JOB#: [id number] / [id number]
== END 2020-06-15 11:30 | disposition home health service (06) | DRG 56 ==
LOC: GEROPSY 10:16
PROVIDERS: ADMIT Psychiatry & Neurology Psychiatry; ATTEND Psychiatry & Neurology Psychiatry
DX: G30.9 Alzheimer's disease, unspecified (principal); E43 Unspecified severe protein-calorie malnutrition; N39.0 Urinary tract infection, site not specified; F01.51 Vascular dementia, unspecified severity, with behavioral disturbance; F02.81 Dementia in other diseases classified elsewhere, unspecified severity, with behavioral disturbance; Z68.1 Body mass index [BMI] 19.9 or less, adult; Z79.899 Other long term (current) drug therapy; F32.9 Major depressive disorder, single episode, unspecified; F41.9 Anxiety disorder, unspecified; F63.9 Impulse disorder, unspecified; Z66 Do not resuscitate; M19.90 Unspecified osteoarthritis, unspecified site; I48.91 Unspecified atrial fibrillation; Z20.828 Contact with and (suspected) exposure to other viral communicable diseases; Z79.01 Long term (current) use of anticoagulants; I10 Essential (primary) hypertension; Z87.440 Personal history of urinary (tract) infections; Z87.01 Personal history of pneumonia (recurrent)
CPT/HCPCS: 36415; 80048; 80053; 80061; 81001; 82306; 82607; 83036; 83540; 83550; 83735; 84436; 84443; 84480; 85025; 85379; 86592; U0003; 97530